=== PATIENT | male | born 1940 | race Hispanic/Latino ===

== ENCOUNTER 2018-09-26 14:49 | Observation (INO) | payer OTHER, MEDICARE ==
[2018-09-26 15:12] LABS: #Eosinphils 0.1 thou/uL (0.0-0.7); #Lymphocytes 1.2 thou/uL (1.20-3.40); #Monocytes 0.7 thou/uL (0.11-0.59); #Neutrophils 5.2 thou/uL (1.40-6.50); %Basophils 0.1 % (0.0-1.0); %Eosinophils 1.5 % (0.0-10.0); %Lymphocytes 16.4 % (21.0-51.0); %Monocytes 9.2 % (0.0-10.0); %Neutrophils 72.8 % (42.0-75.0); Hemoglobin 16.2 g/dL (14.0-18.0); Mean Corpuscular HGB CONC 34.2 g/dL (32.0-36.0); Mean Corpuscular Hemoglobin 31.3 pg (27.0-31.0); Mean Corpuscular Volume 91.5 fL (78.0-98.0); Mean Platelet Volume 8.2 fL (7.4-10.4); Platelet Count 144 thou/uL (130-400); RBC Distribution Width 12.6 % (11.5-14.5); Red Blood Cell (RBC) Count 5.17 mill/uL (4.70-6.10); White Blood Cell (WBC) Count 7.1 thou/uL (4.8-10.8)
[2018-09-26 15:33] LABS: ALT (SGPT) 18 U/L (8-55); AST (SGOT) 24 U/L (5-34); Albumin 4.1 g/dL (3.4-4.8); Alkaline Phosphatase 66 U/L (40-150); Anion Gap 14 mmol/L (10-20); BUN (Urea Nitrogen) 16 mg/dL (8.4-25.7); Bilirubin, Total 0.7 mg/dL (0.2-1.2); CK (CPK) 273 U/L (30-200); Calc. Creatinine Clearance 0 mL/min (70-130); Calcium 9.5 mg/dL (7.8-10.44); Carbon Dioxide 23 mmol/L (23-31); Chloride 102 mmol/L (98-107); Estimated GFR-MDRD 74; Globulin 2.8 g/dL (2.4-3.5); Glucose 199 mg/dL (83-110); Lipase 23 U/L (8-78); Potassium 3.8 mmol/L (3.5-5.1); Protein, Total 6.9 g/dL (5.8-8.1); Sodium 135 mmol/L (136-145)
[2018-09-26 15:41] LABS: CKMB 7.3 ng/mL (0-6.6); Troponin I 0.301 ng/mL (< 0.028)
--- NOTE | 2018-09-26 15:42 | RAD ---
PORTABLE CHEST 1 VIEW: Date: 09/26/18 Time: 1434 hours HISTORY: Dyspnea. FINDINGS: Comparison made with exam dated 11/19/07. Right-sided AICD is present. The heart size is borderline. The lungs are well expanded without focal areas of consolidation, pneumothoraces, julienne pulmonary edema, or pleural effusions. IMPRESSION: No radiographic evidence of acute cardiopulmonary process. POS: [facility]
[2018-09-26] MEDS ORDERED: Enoxaparin Sodium 80 MG/0.8 ML SYRINGE ONE (16:31)
[2018-09-26] MEDS ORDERED: Metoprolol Tartrate 5 MG/5 ML VIAL ONE (16:31)
[2018-09-26] MEDS ORDERED: Nitroglycerin 0.4 MG TAB (25 Tab Bottle) PO PRN (17:46)
[2018-09-26 18:11] VITALS: BMI 27.9
[2018-09-26] MEDS ORDERED: Enoxaparin Sodium 80 MG/0.8 ML SYRINGE SC SCH (18:30)
[2018-09-26 20:01] LABS: Troponin I 3.531 ng/mL (< 0.028)
[2018-09-26] MEDS ORDERED: Simvastatin 20 MG TAB PO SCH (21:00)
[2018-09-26] MEDS: Carvedilol 6.25 MG TAB PO SCH (21:29)
[2018-09-26] MEDS: Sacubitril 24.5 MG/Valsartan 25.5 MG TABLET PO SCH (21:29)
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
[2018-09-26 22:48] LABS: Troponin I 4.942 ng/mL (< 0.028)
--- NOTE | 2018-09-27 07:16 | PRG ---
DATE OF SERVICE: 09/27/2018. SUBJECTIVE: No complaints of chest pain, shortness breath, nausea or vomiting. OBJECTIVE: VITAL SIGNS: Temperature 97.9, pulse 71, respirations 16, pulse ox 97, blood pressure 121/66. HEART: Regular rate and rhythm. LUNGS: Clear. ABDOMEN: Soft. EXTREMITIES: With no edema. LABORATORY DATA: Troponin 3.5, 4.9. ASSESSMENT: 1. Chest pain, resolved. 2. Supraventricular tachycardia with discharge of his defibrillator x5 yesterday. 3. Hypertension. 4. Hyperlipidemia. 5. Diabetes. PLAN: 1. Discussed with Dr. Gamez. Dr. Luna to see today. 2. Consult Dr. Farias or Dr. Martinez with EP. 3. Continue Coreg at 6.25 p.o. b.i.d.
[2018-09-27] MEDS ORDERED: metFORMIN 500 MG TAB PO SCH (08:00)
[2018-09-27] MEDS: Carvedilol 6.25 MG TAB PO SCH (08:52)
[2018-09-27] MEDS ORDERED: Aspirin 325 MG TAB PO SCH (09:00)
[2018-09-27] MEDS: Sacubitril 24.5 MG/Valsartan 25.5 MG TABLET PO SCH (09:12)
[2018-09-27 11:40] VITALS: BP 105/59; TEMP 97.5
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
--- NOTE | 2018-09-27 12:54 | DIS ---
DATE OF ADMISSION: 09/26/2018 DATE OF DISCHARGE: 09/27/2018 DISCHARGE DIAGNOSES: 1. Atrial tachycardia/supraventricular tachycardia. 2. Automatic implantable cardioverter/defibrillator shocks. 3. Dilated cardiomyopathy with ejection fraction 20-25%. 4. Hypertension. 5. Hyperlipidemia. 6. Diabetes. DISCHARGE MEDICATIONS: Metoprolol 25 p.o. at bedtime, glipizide 5 p.o. q.a.m., metformin 500 p.o. b. i.d., Entresto 24-26 1 p.o. b.i.d., simvastatin 20 daily. BRIEF HISTORY: This is a 77-year-old male with history as above with a dilated cardio myopathy who presented with chest pain. He was doing well over the past few years. He has been foll owed by Dr. Luna. Recently his Coreg was stopped approximately 2 months ago. He has done well unt il yesterday. He had 5 episodes of being shock from his ICD. He then presented to the emergency karol where he was started on Lopressor. He has done well since then. HOSPITAL COURSE: The patient is feeling well. No recurrent shocks. He was started on Coreg 6.25 b. i.d. However, Dr. Luna was consulted. The patient will be discharged with metoprolol 25 p.o. at b edtime and be titrated upward. He will follow up in the office in one week. OF course, if he has an y recurrent shocks he is to return to the ER.
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
== END 2018-09-27 13:24 | disposition home or self-care (01) ==
LOC: ERS 14:49 → 2SW 16:23
PROVIDERS: ADMIT Family Medicine; ATTEND Family Medicine
DX: I47.1 Supraventricular tachycardia (principal); I42.0 Dilated cardiomyopathy; I10 Essential (primary) hypertension; E78.5 Hyperlipidemia, unspecified; E11.9 Type 2 diabetes mellitus without complications; Z79.82 Long term (current) use of aspirin; Z79.84 Long term (current) use of oral hypoglycemic drugs; Z79.899 Other long term (current) drug therapy; Z95.810 Presence of automatic (implantable) cardiac defibrillator
CPT/HCPCS: 36415; 36416; 71045; 80053; 82553; 83690; 83880; 84484; 85025; 85379; 93005; 96361; 96372; 96374; G0378; J1650

== ENCOUNTER 2018-10-02 16:28 | Observation (INO) | payer OTHER, MEDICARE ==
[~2018-10-02 16:28] MED LIST: ISOVUE-370 76%-LOCM 1 ML ONE
[2018-10-02 16:56] LABS: #Basophils 0.1 thou/uL (0.0-0.2); #Eosinphils 0.1 thou/uL (0.0-0.7); #Lymphocytes 1.5 thou/uL (1.20-3.40); #Monocytes 0.6 thou/uL (0.11-0.59); #Neutrophils 5.1 thou/uL (1.40-6.50); %Basophils 0.7 % (0.0-1.0); %Eosinophils 1.3 % (0.0-10.0); %Lymphocytes 20.7 % (21.0-51.0); %Monocytes 7.6 % (0.0-10.0); %Neutrophils 69.7 % (42.0-75.0); Hemoglobin 16.6 g/dL (14.0-18.0); Mean Corpuscular HGB CONC 34.5 g/dL (32.0-36.0); Mean Corpuscular Hemoglobin 31.5 pg (27.0-31.0); Mean Corpuscular Volume 91.3 fL (78.0-98.0); Mean Platelet Volume 8.1 fL (7.4-10.4); Platelet Count 149 thou/uL (130-400); RBC Distribution Width 12.6 % (11.5-14.5); Red Blood Cell (RBC) Count 5.25 mill/uL (4.70-6.10); White Blood Cell (WBC) Count 7.3 thou/uL (4.8-10.8)
[2018-10-02] MEDS ORDERED: Lorazepam 2 MG/ML VIAL ONE (17:12)
[2018-10-02 17:20] LABS: CKMB 2.7 ng/mL (0-6.6); Troponin I 0.025 ng/mL (< 0.028)
--- NOTE | 2018-10-02 18:56 | RAD ---
ONE VIEW CHEST: 10/02/18 HISTORY: Dyspnea. COMPARISON: 09/26/18. FINDINGS: Stable right sided defibrillator. Atherosclerosis of the aorta. Heart is enlarged. The pulmonary vess els and hilum are normal. Costophrenic angles are clear. No consolidation or mass. No pneumothorax or osseous abnormalities. IMPRESSION: No acute cardiopulmonary process. POS: [facility]
[2018-10-02 20:05] LABS: Troponin I 0.041 ng/mL (< 0.028)
[2018-10-02] MEDS ORDERED: Enoxaparin Sodium 80 MG/0.8 ML SYRINGE ONE (21:17)
[2018-10-02 22:45] VITALS: BMI 27.6
--- NOTE | 2018-10-02 23:04 | CT ---
CT ANGIOGRAM OF THE CHEST: 10/02/18 HISTORY: Shortness of breath. COMPARISON: None. TECHNIQUE: CT angiogram of the chest is performed in the axial plane. Three dimensional reformatted image are fontanez bmitted for interpretation. FINDINGS: Trachea and central bronchi are patent. Dependent atelectatic changes. No masses or consolidation. No pleural effusion or pneumothorax. No mediastinal mass, lymphadenopathy or hematoma. Atherosclerosis of a nonaneurysmal aorta. Coronary artery calcifications are identified. Heart size is within normal limits. No pericardial effusion. Gallbladder is surgically absent. Incompletely evaluated hypodensity emanating from the upper pole of the right kidney. Atrophy of the head and proximal body of the pancreas. Adequate contrast opacification of the pulmonary arterial system to the level of segmental arteries. No filling defect to suggest a thromboembolism. Though the contrast was injected via the left upper e xtremity, contrast does not opacify the left brachiocephalic vein or superior vena cava. Rather, ther e appear to be collateral vessels with contrast entering the azygos vein and subsequently entering th e right atrium. 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 There is evidence of a right sided defibrillator. IMPRESSION: 1. No evidence of pulmonary artery embolism to the level of the segmental arteries. 2. Additional findings as above. POS: [facility]
[2018-10-02 23:22] LABS: Troponin I 0.034 ng/mL (< 0.028)
[2018-10-02] MEDS ORDERED: Morphine 4 MG/ML VIAL SLOW IVP PRN (23:54)
[2018-10-02] MEDS ORDERED: Nitroglycerin 4.9 GM Bottle SL PRN (23:54)
[2018-10-02] MEDS ORDERED: Calcium Carbonate 500 MG ChewTAB PO PRN (23:55)
[2018-10-02] MEDS ORDERED: Labetalol HCl 100 MG/20 ML VIAL SLOW IVP PRN (23:55)
[2018-10-02] MEDS ORDERED: Dextrose 5% in Water 1,000 ML IV PRN (23:55)
[2018-10-02] MEDS ORDERED: Promethazine 25 MG TAB PO PRN (23:55)
[2018-10-02] MEDS ORDERED: Dextrose 50% Abboject 50 ML SYRINGE SLOW IVP PRN (23:55)
[2018-10-02] MEDS ORDERED: Acetaminophen 500 MG TAB PO PRN (23:55)
[2018-10-02] MEDS ORDERED: Zolpidem Tartrate 5 MG TAB PO PRN (23:55)
[2018-10-02] MEDS ORDERED: Ondansetron ODT 4 MG TAB PO PRN (23:55)
[2018-10-02] MEDS ORDERED: HumaLOG 300 UNITS/3 ML VIAL SC PRN (23:55)
[2018-10-03 08:06] LABS: ALT (SGPT) 20 U/L (8-55); AST (SGOT) 20 U/L (5-34); Albumin 3.9 g/dL (3.4-4.8); Alkaline Phosphatase 63 U/L (40-150); Anion Gap 13 mmol/L (10-20); BUN (Urea Nitrogen) 12 mg/dL (8.4-25.7); Bilirubin, Total 0.7 mg/dL (0.2-1.2); Calc. Creatinine Clearance 81 mL/min (70-130); Calcium 9.2 mg/dL (7.8-10.44); Carbon Dioxide 24 mmol/L (23-31); Chloride 103 mmol/L (98-107); Estimated GFR-MDRD 87; Globulin 2.7 g/dL (2.4-3.5); Glucose 143 mg/dL (83-110); Potassium 3.8 mmol/L (3.5-5.1); Protein, Total 6.6 g/dL (5.8-8.1); Sodium 136 mmol/L (136-145)
[2018-10-03] MEDS ORDERED: ADENOSINE 60 MG/20 ML VIAL ONE (08:39)
[2018-10-03] MEDS: Clopidogrel Bisulfate 75 MG TAB PO SCH (10:00)
[2018-10-03] MEDS: Enoxaparin Sodium 40 MG/0.4 ML SYRINGE SC SCH (10:00)
[2018-10-03] MEDS: Aspirin 325 mg Enteric Coated Tablet PO SCH (10:00)
[2018-10-03] MEDS: Sacubitril 24.5 MG/Valsartan 25.5 MG TABLET PO SCH ×2 (10:01→21:30)
--- NOTE | 2018-10-03 15:11 | NM ---
CARDIAC SPECT WITH EF AND WALL MOTION: HISTORY: A 77-year-old male with a history of chest pain, congestive heart failure, ICD, supraventricular tach ycardia. Adenosine sestamibi study is performed. The patient was injected with 32 mCi Technetium 99m sestamibi intravenously for stress images and 10. 2 mCi Technetium 99m sestamibi intravenously for resting images. No scan evidence for ischemia. TID 1.01. LHR 0.40. EDV markedly elevated at 218 mL. Ejection fraction markedly low at 18%. MYOCARDIAL PERFUSION WALL MOTION: Severe generalized [id number] with some septal dyskinesis. IMPRESSION: No scan evidence for overt ischemia. Markedly abnormal end-diastolic volume at 218 mL. Ejection fra ction markedly low at 18%. Severe hypokinesis with some dyskinesis in the region of the septum. POS: [facility]
[2018-10-03 16:32] LABS: Troponin I 0.017 ng/mL (< 0.028)
--- NOTE | 2018-10-03 19:09 | HP ---
DATE OF ADMISSION: 10/02/2018 DATE OF SERVICE: 10/03/2018 CHIEF COMPLAINT: Shortness of breath. HISTORY OF PRESENT ILLNESS: The patient has well documented longstanding history of nonischemic cardiomyopathy. Patient of Dr. Bush, has transitioned to Dr. Luna approximately 2 weeks ago. The patient had multiple firings of his implantable AICD with elements of tachycardia on interrogation. The patient's beta blockers were modified following the patient with some element of hypotension being placed on Entresto on an outpatient basis. Following review of last two echocardiograms, the patient has recovered approximately 10% ejection fraction to 20%-25% here in the last check being approximately 2-3 months ago per Cardiology's notations, however, cannot be directly reviewed secondary to not being in [email or web address] or [facility]. Speaking with patient, he has not undergone stress test in better part of 8-10 years. The patient feels anxiety about general medical condition and medication changes. He is not sure that he is on the correct medications for his condition and shortness of breath with activity since being on metoprolol. The patient notes elevated heart rate every time they checked his blood pressure and then he repeatedly checks it again and again with subsequent elevations of heart rate and blood pressure. At rest, the patient denies any chest pain or shortness of breath. Reports his anxiety this morning is controlled. Reports blood sugars are controlled. PAST MEDICAL HISTORY: Includes diabetes type 2, hyperlipidemia, hypertension, cardiomyopathy with diastolic and systolic heart failure, last ejection fraction 20%-25%. The patient with history of colon cancer, status post chemotherapy and resection in 2005, reported good scope with Dr. Cuenca, EGD in 2011. The patient with AICD placement, date undetermined by outpatient records. OUTPATIENT MEDICATIONS: Baby aspirin 81 mg, simvastatin 20 mg, metformin 500 mg t.i.d., Entresto 24-26 mg twice daily. ALLERGIES: No known drug allergies. SOCIAL HISTORY: Patient reports being former smoker, quit in 1997. Lives with spouse. Strong family history of diabetes. PHYSICAL EXAMINATION: VITAL SIGNS: Temperature of 98.2, pulse 79, respiratory rate of 16, oxygen saturation 97% on room air, blood pressure 137/77. Hematology: White blood cell count of 7.3, hemoglobin of 16.6, platelet count of 149. D-dimer 0.45. Troponins x3 0.02, 0.04, 0.03. Blood glucose 132-143 range last 6 hours. Sodium 136, potassium of 3.8, CO2 of 24, BUN of 12, creatinine of 0.86, albumin 3.9. BNP of 275. Chest x-ray without acute cardiopulmonary events. CTA chest and thorax, no dissection or pulmonary embolism. GENERAL: The patient is alert and oriented, in no acute distress. HEENT: Head is normocephalic, atraumatic. Extraocular movements are intact. Sclerae are clear. Oral mucosa is moist. NECK: Supple. HEART: Regular rate and rhythm at time of exam. No murmurs auscultated. LUNGS: Clear to auscultation bilaterally. No rubs or wheezes. ABDOMEN: Protuberant, soft, nontender. EXTREMITIES: Lower extremities without cyanosis or edema. The patient is alert and oriented x3, somewhat anxious. Affect is flat. Appropriate with question; however, somewhat cyclic thought process with his anxiety. ASSESSMENT AND PLAN: 1. Elevated troponin, shortness of breath, anxiety, systolic and diastolic congestive heart failure without current exacerbation. 2. Nonischemic cardiomyopathy. 3. Diabetes type 2. This is likely continuation of current circumstances from prior admission 2 weeks ago with unknown possibility of further atrial tachycardia events as the patient's pacemaker has not been interrogated. No reports on rhythm strips overnight of any tachycardia. Troponins are indeterminate; however, significantly decreased since 2 weeks ago with the patient's AICD firing with likely demand ischemia subsequently to defibrillator shocks. The patient's shortness of breath may very well be secondary to anxiety secondary to general medical condition and changes to medications have improved his ejection fraction over the last 18 months on review of outpatient records; however, the patient has not had a stress test, which will continue to bring patient to the hospital for observation status, unless this was performed with default to cardiology's recommendations if they had rather taken for catheterization or interrogate the pacemaker first. The patient has been made n.p.o. after midnight and beta itzel has been held this morning. Per last hospital admission without a consistent beta blockade, the patient's heart rhythm is deteriorated and tachycardia would be keen to restart this as soon as possible, sliding scale insulin checks regarding patient's diabetes. We will follow up on any recommendations from Cardiology. If stress test is normal, would seek to restart patient's home medications fully and transition the patient home until stress test can be confirmed normal. We will start with low dose Lovenox and Plavix at this point in time. Continue other home medications other than beta itzel, which includes angiotensin receptor itzel, statin. MTDD
[2018-10-03] MEDS ORDERED: Atorvastatin Calcium 10 MG TAB PO SCH (21:00)
--- NOTE | 2018-10-04 02:01 | CON ---
DATE OF CONSULTATION: 10/03/2018 CARDIOLOGY CONSULT NOTE DATE OF ADMISSION: 10/02/2018 INDICATION FOR CONSULTATION: This is a 77-year-old gentleman with a history of known cardiomyopathy with severe decrease in left ventricular systolic function, who has undergone AICD implant. He appar ently was shocked several times last week. He is a patient of Dr. Bush recently, but then was s een by Dr. Luna more recently a couple of weeks ago. Last week he had multiple shocks from his AIC D due to SVT apparently, the device was a modified, but yesterday he became anxious and felt like he was going to be shocked again. He felt the heart rate was getting fast again and he presented to the emergency room. He did not have any more recent shocks since last week. He did not have a shock on this admission. He has been short of breath and his most recent echocardiogram shows ejection fract ion less than 20%. He also had a stress test, which showed no evidence of ischemia, but ejection fra ction was also estimated about 18% with left ventricular dilatation and global hypokinesis. We were asked to see him due to his history of cardiomyopathy and severe decrease in left ventricular systoli c function. He has had episodes of nonsustained ventricular tachycardia even on this admission. He continued to have runs of nonsustained V-tach, but has had no shocks from the defibrillator as of yet and most likely is programmed not to shock until he has more beats of what he has been having as william g he has been about 9 beats. At this time, he denies any chest pain. He does have some shortness of breath, but is minimal and otherwise appears to be comfortable. For his past medical history, social history, family history, allergies, review of systems, medicatio n, please refer to the notes dictated by my nurse practitioner, Zaina Ambrocio. We have discussed the p atient, I would agree with her assessment. PHYSICAL EXAMINATION: GENERAL: Reveals an elderly gentleman who is in no acute distress at this time. He does get some sh ort of breath during the examination and if he is talking too much, but otherwise he appears to be ve ry comfortable. VITAL SIGNS: Stable. Blood pressure is 145/68. He is afebrile. Heart rate is in the 70s and shows a sinus rhythm with no acute ST segment changes. He does have decreased R-wave progression in the a nterior leads. His respiratory rate is about 16, O2 saturations are 96%. HEENT: Shows head to be normocephalic, atraumatic. Carotid pulses are present without any significa nt bruits. CHEST: Clear to auscultation. I did not hear any rales, rhonchi or wheezing. CARDIOVASCULAR: At this time reveals a regular rate and rhythm. I did not hear any significant murm urs, heaves, thrills, bruits or rubs. ABDOMEN: Soft and nontender. Positive bowel sounds are present. EXTREMITIES: Show no clubbing, cyanosis or edema. NEUROLOGIC: The patient appears to be fully intact. IMPRESSION: 1. History of dilated cardiomyopathy. He is status post AICD implant with recent shocks. He did del real ve a slight elevation of cardiac enzymes which may be due to the previous shocks he had for the last week with a continued leak due to his cardiomyopathy. At this time, he appears to be otherwise stabl e and I did not believe this is indicative of any new events. His troponin I's have trended downward since his admission actually was 0.025 increased up to 0.041 and is now back down to 0.017. His MBs were negative. His BNP was 275. 2. History of hypertension. This is under reasonable control at that time. At this time, we will c ontadolfo to monitor his medications and will address appropriately. 3. History of nonsustained ventricular tachycardia. The ICD appears to be functioning normally. We did not receive a shock, and the rate for the duration of ventricular tachycardia prior to being deondre cked. 4. Diabetes. This will be dealt with by the primary care service. Otherwise, overall, patient appe ars to be relatively stable from a cardiac standpoint despite having severe decrease in left ventricu lar systolic function.
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
[2018-10-04 05:10] LABS: Troponin I 0.018 ng/mL (< 0.028)
--- NOTE | 2018-10-04 08:45 | PRG ---
DATE OF SERVICE: 10/04/2018 SUBJECTIVE: No recurrent chest pain, shortness of breath, nausea, or vomiting. No reported shocks s tierney the last admission. OBJECTIVE: VITAL SIGNS: Temperature 97.3, pulse 81, blood pressure 125/75, respirations 18, pulse ox 97%. HEART: Regular rate and rhythm. LUNGS: Clear. ABDOMEN: Soft. EXTREMITIES: With no edema. LABORATORY DATA: Blood sugar 156 and 149. Troponin 0.017 and 0.018. Cardiac stress test negative w ith ejection fraction of 18%. ASSESSMENT: 1. Dilated cardiomyopathy with an ejection fraction of 18%. 2. Status post automatic implantable cardioverter defibrillator placement with recent shocks. 3. Hypertension. 4. Diabetes. 5. History of nonsustained ventricular tachycardia. PLAN: 1. Await Dr. Luna's evaluation. 2. Restart metoprolol 25 mg p.o. at bedtime. 3. Possible discharge today.
[2018-10-04] MEDS: Enoxaparin Sodium 40 MG/0.4 ML SYRINGE SC SCH (09:38)
[2018-10-04] MEDS: Sacubitril 24.5 MG/Valsartan 25.5 MG TABLET PO SCH (09:38)
[2018-10-04] MEDS: Clopidogrel Bisulfate 75 MG TAB PO SCH (09:39)
[2018-10-04] MEDS: Aspirin 325 mg Enteric Coated Tablet PO SCH (09:39)
[2018-10-04 12:20] VITALS: BP 133/63; TEMP 97.9
--- NOTE | 2018-10-04 13:43 | PDOC.CTH ---
Cardiology Progress Note - Subjective He is doing much better. He denies any chest pain, tightness, pressure, SOB. - Objective Vital Signs Temp Pulse Resp BP BP Pulse Ox 10/04/18 11:49 97.9 F 66 16 133/63 97 10/04/18 07:42 97.5 F L 95 16 149/77 H 97 10/04/18 04:00 97.3 F L 81 18 127/75 97 Weight 169 lb 3.2 oz 10/03/18 10/04/18 10/05/18 06:59 06:59 06:59 Intake Total 200 1520 Output Total 150 Balance 50 1520 - Physical Examination General/Neuro: alert & oriented x3, NAD Neck: no JVD present Lungs: CTA, unlabored respirations Heart: RRR Abdomen: NT/ND Extremities: other: (no edema) - Telemetry Telemetry Rhythm: NSR - Labs Result Diagrams: 10/02/18 16:45 10/03/18 06:39 Troponin/CKMB CK-MB (CK-2) 2.7 ng/mL (0-6.6) 10/02/18 16:45 Troponin I 0.018 ng/mL (< 0.028) 10/04/18 04:04 - Assessment/Plan 1. SOB, resolved after stopping Metoprolol. 2. Non-ischemic CM EF at 20% 3. VT, s/p AICD shock last admission, none since last seen. Only non sustained VT 9 beats longest. No ATP. PLAN: - Will switch his metoprolol to coreg as he used to be on this medication in the past and he felt good with it and it suppressed his VT well. He does not like the way Metoprolol makes him feel. Will start Coreg at 3.125 mg BID and will make sure he keeps an eye on his BP which is why we stopped the coreg in the past. If BP is lower with coreg he will cut back on Entresto to once a day which may be all he can tolerate but at this point the priority is to not get another AICD discharge. - He may be discharged home today.
--- NOTE | 2018-10-04 15:14 | DIS ---
DATE OF DISCHARGE: 10/04/2018 REASON FOR ADMISSION: Shortness of breath. DISCHARGE DIAGNOSIS: Shortness of breath. SUMMARY: Ms. Arias is a pleasant 77-year-old white gentleman who has a history of nonischemic car diomyopathy, he has an AICD in place with an EF of 20%. He had an admission about a week or two ago with SVT that got shocked by the device not detecting correctly. This was modified, and he had noted some episodes of tachycardia. He thought he was going to get shocked. He started getting short of breath and anxious, so he decided to come in. He did not receive any therapy not even . His lo ngest run of any rhythm was actually a 9-beat run of nonsustained ventricular tachycardia. He did no t receive any therapies for that. He was actually asymptomatic during this time because do not correlate with the time he felt his tachycardia. He is doing well. He does not like the way the me toprolol feels. He states it makes him feel short of breath. He was on Coreg before for a long yasmeen od of time and did very well. We actually took him off of this because we tried to put him on Entres to and it dropped his blood pressure. Currently, he is off of the metoprolol for the last day and he already feels much better. He would like to try the metoprolol again. Currently, we will start him back on the Coreg 3.125 b.i.d. If he notices that his blood pressure drop and he gets orthostatic, he will first cut down the Entresto to just once a day which is not ideal, but this may be as much as he can tolerate. DISCHARGE MEDICATIONS: Remain the same except for discontinuing metoprolol and starting Coreg 3.125 mg twice a day. FOLLOWUP APPOINTMENTS: 1. With myself next month as previously scheduled. 2. With Dr. Avitia as previously scheduled as well towards the end of this week.
[2018-10-04] MEDS ORDERED: Carvedilol 3.125 MG TAB PO SCH (17:00)
== END 2018-10-04 15:40 | disposition home or self-care (01) ==
LOC: ERS 16:28 → 2SW 20:45
PROVIDERS: ADMIT Family Medicine; ATTEND Family Medicine
DX: R06.02 Shortness of breath (principal); I42.8 Other cardiomyopathies; E11.9 Type 2 diabetes mellitus without complications; E78.5 Hyperlipidemia, unspecified; I11.0 Hypertensive heart disease with heart failure; I50.40 Unspecified combined systolic (congestive) and diastolic (congestive) heart failure; F41.9 Anxiety disorder, unspecified; Z85.038 Personal history of other malignant neoplasm of large intestine; Z87.891 Personal history of nicotine dependence; Z79.82 Long term (current) use of aspirin; Z79.84 Long term (current) use of oral hypoglycemic drugs; Z79.899 Other long term (current) drug therapy; Z95.810 Presence of automatic (implantable) cardiac defibrillator; Z98.890 Other specified postprocedural states
CPT/HCPCS: 36415; 36416; 71045; 71275; 78452; 80053; 82553; 83880; 84484; 85025; 85379; 93005; 93017; 96372; 96374; A9500; G0378; J0153; J1650; J2060

== ENCOUNTER 2020-06-06 23:44 | Inpatient (IN) | payer OTHER, MEDICARE ==
[2020-06-07 00:40] LABS: #Eosinphils 0.1 thou/uL (0.0-0.7); #Lymphocytes 1.1 thou/uL (1.20-3.40); #Monocytes 0.5 thou/uL (0.11-0.59); #Neutrophils 4.9 thou/uL (1.40-6.50); %Basophils 0.4 % (0.0-1.0); %Eosinophils 1.2 % (0.0-10.0); %Lymphocytes 16.9 % (21.0-51.0); %Monocytes 7.9 % (0.0-10.0); %Neutrophils 73.5 % (42.0-75.0); Hemoglobin 15.3 g/dL (14.0-18.0); Mean Corpuscular HGB CONC 33.5 g/dL (32.0-36.0); Mean Corpuscular Hemoglobin 31.3 pg (27.0-31.0); Mean Corpuscular Volume 93.2 fL (78.0-98.0); Mean Platelet Volume 8.4 fL (7.4-10.4); Platelet Count 151 thou/uL (130-400); Red Blood Cell (RBC) Count 4.88 mill/uL (4.70-6.10); White Blood Cell (WBC) Count 6.7 thou/uL (4.8-10.8)
[2020-06-07 01:01] LABS: ALT (SGPT) 17 U/L (8-55); AST (SGOT) 22 U/L (5-34); Alkaline Phosphatase 67 U/L (40-110); Anion Gap 14 mmol/L (10-20); BUN (Urea Nitrogen) 15 mg/dL (8.4-25.7); Calc. Creatinine Clearance 0 mL/min (70-130); Calcium 9.3 mg/dL (7.8-10.44); Carbon Dioxide 23 mmol/L (23-31); Chloride 101 mmol/L (98-107); Estimated GFR-MDRD 86; Globulin 2.6 g/dL (2.4-3.5); Glucose 170 mg/dL (83-110); Protein, Total 6.6 g/dL (5.8-8.1); Sodium 134 mmol/L (136-145)
[2020-06-07 01:22] LABS: CKMB 2.9 ng/mL (0-6.6)
[2020-06-07 03:10] LABS: SARS-CoV-2 NAA Rapid Test Not Detected (NotDetected)
[2020-06-07] MEDS ORDERED: Dextrose 5% in Water 1,000 ML IV PRN (03:39)
[2020-06-07] MEDS ORDERED: Dextrose 50% Abboject 50 ML SYRINGE SLOW IVP PRN (03:39)
[2020-06-07] MEDS ORDERED: HumaLOG 300 UNITS/3 ML VIAL SC PRN ×2 (03:39)
[2020-06-07 04:39] LABS: Troponin I 0.041 ng/mL (< 0.028)
[2020-06-07 05:41] VITALS: BMI 25.9
[2020-06-07 06:54] LABS: Troponin I 0.046 ng/mL (< 0.028)
--- NOTE | 2020-06-07 07:34 | CT ---
PRELIMINARY REPORT/[facility]/EMERGENCY AFTER HOURS PROCEDURE: EXAM: CTA Chest with Intravenous Contrast CLINICAL HISTORY: SOB x 3 weeks. Patient states that he woke up from sleeping because he couldn't kareem athe. Patient states that his heart was racing during this incident. TECHNIQUE: Axial CTA images of the chest with intravenous contrast. Three-dimensional MIP/volume rend ered reformations were performed. CONTRAST: With; ISOVUE 370, 85ML COMPARISON: CT\SR - CTA ANGIO CHEST W WO CON - 10/02/2018 06:13 PM INTERNAL COMMUNICATIONS MANAGER FINDINGS: PULMONARY ARTERIES There is no intraluminal filling defect suspicious for PE. AORTA No thoracic aortic aneurysm or dissection. LUNGS The lungs are clear. No pulmonary mass. No focal airspace consolidation. PLEURAL SPACES There are small bilateral pleural effusion. HEART AND MEDIASTINUM No cardiomegaly. No significant pericardial effusion. LYMPH NODES No lymphadenopathy. BONES There is a healed fracture deformity of the right third and fourth ribs. There is a healed fracture deformity of the left fifth, sixth, seventh rib. CHEST WALL AND UPPER ABDOMEN Images through the upper abdomen are unremarkable. The chest wall is unremarkable. IMPRESSION: There are small bilateral pleural effusion. No CT evidence of pulmonary embolism. ELECTRONICALLY SIGNED BY: Moo Marinelli MD Jun 07, 2020 1:53:32 AM CDT This report is intended for review by the ordering physician only, in accordance of law. If you recei ve this report in error, please call [facility] at [phone]. FINAL REPORT EMERGENCY AFTER HOURS CTA CHEST WITH CONTRAST: FINDINGS/IMPRESSION: I agree with the findings and impression given in the preliminary report per [facility] physici an. 1. No evidence of pulmonary thromboembolism. 2. Bilateral pleural effusions. POS: MARYA
--- NOTE | 2020-06-07 07:41 | RAD ---
RADIOGRAPH CHEST 1 VIEW: DATE: 06/07/2020 TIME: 12:23 AM HISTORY: 79-year-old male with dyspnea COMPARISON: 10/02/2018 FINDINGS: New bilateral pleural effusions. No large consolidation identified. Right subclavian AICD remains. Di ffuse pulmonary venous congestion, new. No pneumothorax. IMPRESSION: Congestive heart failure with bilateral pleural effusions.
[2020-06-07] MEDS ORDERED: Acetaminophen 325 MG TAB PO PRN (08:36)
[2020-06-07] MEDS ORDERED: Furosemide 20 MG/2 ML VIAL SLOW IVP SCH (08:45)
--- NOTE | 2020-06-07 08:45 | PDOC.HHP ---
Hospitalist HPI - History of Present Illness Shortness of breath History of Present Illness: This patient is a 79-year-old male who presented via the emergency department. As patient has a history of a nonischemic cardiomyopathy with an ejection fraction of 20% or less. The patient had a stress test in September 2018 which revealed an EF of 18% with significant wall motion abnormalities. He was seen by Dr. Luna earlier this year and told that his ejection fraction might even be a bit lower. He has had some intolerances to medications in the past due to hypotension or side effects. He reports that chronically he experiences some heaviness in the left lower chest area he states that since his appointment with Dr. Root earlier this year in which time he found out his ejection fraction was a little lower he states he has been feeling "funny". The patient reports he does have diuretics that he is to use as needed for edema but he never uses them he does sleep elevated chronically. He states if he tries to sleep flat that he feels very anxious and feels like his heart is racing. Patient presented to the emergency department today stating that over the last 2 weeks he has felt like his heart has not been beating properly. Feels like his heart is going fast. He has dyspnea on exertion. ED Course: The emergency department the patient had an initial interrogation of his AICD without any significant findings. Hospitalist ROS - Review of Systems Constitutional: denies: fever, chills Respiratory: reports: shortness of breath. denies: cough Cardiovascular: reports: chest pain (Chronic heaviness in the left lower chest) , palpitations, orthopnea (Chronic. Describes feeling anxious or his heart racing if he tries to lie flat.). denies: edema Gastrointestinal: denies: nausea, vomiting, abdominal pain, diarrhea, constipation Genitourinary: denies: dysuria All other systems reviewed; all pertinent +/- noted in HPI/Subj - Medication Medications: Metformin 500 mg p.o. 3 times daily Simvastatin 20 mg p.o. daily Coreg 3.125 p.o. twice daily Aspirin 325 mg p.o. daily Hospitalist History - Past Medical History Source: patient Cardiac: reports: CHF, HTN, Hyperlipidemia, Other (Nonischemic cardiomyopathy with EF less than 20%) Endocrine: reports: Diabetes - Past Surgical History Past Surgical History: reports: Other (AICD placement) - Family History Family History: reports: diabetes mellitus (Mother and father) - Social History Smoking Status: Former smoker (Quit around 1985) Alcohol: reports: Heavy (Quit about 10 years ago) Drugs: reports: none Living Situation: With Family Other Social History: Patient is full code. His or daughter Svitlana would be his surrogate decision maker should that be necessary. - Exam General Appearance: NAD, awake alert ENT: normocephalic atraumatic, no oropharyngeal lesions, moist mucosa Neck: supple, no JVD Heart: RRR, no murmur, no gallops, no rubs Heart - other findings: Ectopy, tachycardia Respiratory: no wheezes, no ronchi Respiratory - other findings: Mild basilar rales, left > right. Gastrointestinal: soft, non-tender, non-distended, normal bowel sounds, no palpable masses, no hepatomegaly, no splenomegaly, no bruit Extremities: no cyanosis, no clubbing, no edema Skin: normal turgor, no lesions, no rashes Neurological: cranial nerve grossly intact, normal sensation to touch, no weakness, no focal deficits Musculoskeletal: normal tone, normal strength, no muscle wasting Psychiatric: normal affect, normal behavior, A&O x 3 Hospitalist Results - Labs Result Diagrams: 06/07/20 00:22 06/07/20 00:22 Lab results: WBC 6.7 thou/uL (4.8-10.8) 06/07/20 00:22 Hgb 15.3 g/dL (14.0-18.0) 06/07/20 00:22 Hct 45.5 % (42.0-52.0) 06/07/20 00:22 MCV 93.2 fL (78.0-98.0) 06/07/20 00:22 Plt Count 151 thou/uL (130-400) 06/07/20 00:22 Neutrophils % 73.5 % (42.0-75.0) 06/07/20 00:22 Sodium 134 mmol/L (136-145) L 06/07/20 00:22 Potassium 4.0 mmol/L (3.5-5.1) 06/07/20 00:22 Chloride 101 mmol/L (98-107) 06/07/20 00:22 Carbon Dioxide 23 mmol/L (23-31) 06/07/20 00:22 BUN 15 mg/dL (8.4-25.7) 06/07/20 00:22 Creatinine 0.86 mg/dL (0.7-1.3) 06/07/20 00:22 Glucose 170 mg/dL (83-110) H 06/07/20 00:22 Calcium 9.3 mg/dL (7.8-10.44) 06/07/20 00:22 Total Bilirubin 1.0 mg/dL (0.2-1.2) 06/07/20 00:22 AST 22 U/L (5-34) 06/07/20 00:22 ALT 17 U/L (8-55) 06/07/20 00:22 Alkaline Phosphatase 67 U/L (40-110) 06/07/20 00:22 CK-MB (CK-2) 2.9 ng/mL (0-6.6) 06/07/20 00:22 Troponin I 0.046 ng/mL (< 0.028) H 06/07/20 06:18 B-Natriuretic Peptide 1252.0 pg/mL (0-100) H 06/07/20 00:21 Serum Total Protein 6.6 g/dL (5.8-8.1) 06/07/20 00:22 Albumin 4.0 g/dL (3.4-4.8) 06/07/20 00:22 - EKG Interpretation EKG: Sinus tachycardia with occasional PVCs and fusion complexes with a rate of 113. Possible left atrial enlargement. Left axis deviation. - Radiology Interpretation CT scan - chest Status: image reviewed by me, report reviewed by me Additional Comment: CTA chest reveals small bilateral pleural effusions Hospitalist H&P A/P - Problem (1) Dyspnea on exertion Code(s): R06.00 - DYSPNEA, UNSPECIFIED Status: Acute (2) Acute on chronic systolic (congestive) heart failure Code(s): I50.23 - ACUTE ON CHRONIC SYSTOLIC (CONGESTIVE) HEART FAILURE Status : Acute (3) Nonischemic cardiomyopathy Code(s): I42.8 - OTHER CARDIOMYOPATHIES Status: Acute (4) Bilateral pleural effusion Code(s): J90 - PLEURAL EFFUSION, NOT ELSEWHERE CLASSIFIED Status: Acute (5) Diabetes mellitus Code(s): E11.9 - TYPE 2 DIABETES MELLITUS WITHOUT COMPLICATIONS Status: Acute (6) Hypertension Code(s): I10 - ESSENTIAL (PRIMARY) HYPERTENSION Status: Acute (7) Hyperlipidemia Code(s): E78.5 - HYPERLIPIDEMIA, UNSPECIFIED Status: Acute (8) History of ventricular tachycardia Code(s): Z86.79 - PERSONAL HISTORY OF OTHER DISEASES OF THE CIRCULATORY SYSTEM Status: Acute (9) ICD (implantable cardioverter-defibrillator) in place Code(s): Z95.810 - PRESENCE OF AUTOMATIC (IMPLANTABLE) CARDIAC DEFIBRILLATOR Status: Acute - Plan Plan: Dyspnea on exertion: Likely secondary to decompensated congestive heart failure. Sats are good. Acute on chronic systolic congestive heart failure: Patient has reduced ejection fraction and has an elevated BNP above his baseline readings in the past. He has small bilateral pleural effusions. Likely has some slight decompensation. We will give a small dose of IV Lasix. Cardiology consulted. Nonischemic cardiomyopathy: Chronic. Last documented ejection fraction we have years from September 2018 order was documented at 18%. Will defer to cardiology whether we need to repeat echocardiogram at this time. History of nonsustained ventricular tachycardia: Discussed with the AICD videotape sales representative. Patient does not have any arrhythmias attributable to his current symptomatology. He did have an episode of a brief run of nonsustained V. tach over 2 weeks ago. He does believe there are some adjustments that could be made. He has notified the methods specialist engineer and is going to discuss this in person with the greens or grounds superintendent. Will consult EP as well. Diabetes mellitus: Continue his metformin. Monitor blood glucose. Hypertension: Patient is on Coreg for heart failure and blood pressure control. He is not tolerated high doses of beta-itzel in the past. We will therefore not push that dose and defer that to cardiology. Hyperlipidemia: Continue statin.
[2020-06-07] MEDS: Aspirin 325 mg Enteric Coated Tablet PO SCH (09:19)
[2020-06-07] MEDS: Enoxaparin Sodium 40 MG/0.4 ML SYRINGE SC SCH (09:19)
[2020-06-07] MEDS: Famotidine 20 MG TAB PO SCH ×2 (09:19→20:30)
[2020-06-07] MEDS ORDERED: Iopamidol 370 76% 100 ML VIAL ONE (11:10)
[2020-06-07] MEDS: metFORMIN 500 MG TAB PO SCH ×2 (11:44→16:52)
[2020-06-07] MEDS: Carvedilol 3.125 MG TAB PO SCH (16:52)
--- NOTE | 2020-06-07 17:20 | CON ---
DATE OF CONSULTATION: 06/07/2020 REASON FOR CONSULTATION: Heart failure. PRIMARY HYDROPULPER OPERATOR: Brett Luna MD HISTORY OF PRESENT ILLNESS: Mr. Arias is a pleasant 79-year-old gentleman who comes to the hospital for worsening shortness of breath. He has a history of nonischemic cardiomyopathy. His EF is about 15% to 20%. He comes in for worsening shortness of breath over the last few days. He could not lie flat as he would get short of breath and tachycardic. He normally does not take Lasix because it makes him orthostatic and he has been fairly stable for at least the last 3 to 4 years. More recently, he has been having a lot more admissions for decompensated heart failure. He tells me he has not changed his diet in any way. He has not been eating any more salt than normal or drinking any more fluids than normal. He otherwise denies any palpitations. He has an AICD in place and this was interrogated in the ER, and there has been no tachyarrhythmias to blame for his decompensated state. Mr. Arias has had a lot of low blood pressures as an outpatient, so he could not tolerate any other heart failure medicines. Currently, he is feeling better after diuresis with IV Lasix, but he continues to feel short with it. PAST MEDICAL HISTORY: 1. Nonischemic cardiomyopathy. 2. Presence of an AICD. 3. Type 2 diabetes. 4. Hyperlipidemia. 5. Colon cancer. PAST SURGICAL HISTORY: 1. Colonoscopy in 2006. 2. AICD placed in 2006 and replaced in 2012. 3. Multiple orthopedic surgeries. FAMILY HISTORY: Noncontributory. SOCIAL HISTORY: No alcohol, tobacco, or drugs. Former smoker, quit in 1997. OUTPATIENT MEDICATIONS: 1. Entresto 24/26 p.o. b.i.d. 2. Zocor 20 mg at bedtime. 3. Metformin 500 mg t.i.d. 4. Carvedilol 3.125 b.i.d. ALLERGIES: NO KNOWN DRUG ALLERGIES. REVIEW OF SYSTEMS: A 12-point review of systems was done and was all negative unless stated in the history of present illness. PHYSICAL EXAMINATION: VITAL SIGNS: Temperature 98.0, pulse 116, respiratory rate 25, saturating 96% on 2 L nasal cannula, blood pressure 127/71. GENERAL: Awake, alert, oriented x3, in mild respiratory distress. HEENT: Normocephalic, atraumatic. NECK: Supple. LUNGS: Have crackles at bases with reduced breaths. CARDIOVASCULAR: S1 and S2. No S3 or S4. No murmurs. There is a grade 2/6 systolic murmur at the right upper sternal border. ABDOMEN: Soft. EXTREMITIES: No edema. SKIN: Warm and dry. LABORATORY DATA: Laboratory work was reviewed. CBC was unremarkable. Coags, D-dimer is a little bit high. Chemistry with a low sodium, otherwise unremarkable. Normal BUN and creatinine. Glucose was 170. Troponin was 0.04, 0.04, and 0.04. BNP at 1252, which is higher than it has been in the past. COVID PCR was not detected. ASSESSMENT: 1. Acute on chronic systolic heart failure. 2. Nonischemic cardiomyopathy. 3. Dilated cardiomyopathy with ejection fraction of 15% to 20% in last evaluation. PLAN: 1. Continue IV diuresis. 2. He is in sinus tachycardia right now. If he does not diurese well or his creatinine starts to creep up, we will add dobutamine to his regimen. Right now, I am hesitant to start it as he is in sinus tach in the 120s and I am afraid he is going to go a lot faster if we start the inotrope. 3. I spoke with him about higher level of care as far as doing maybe an LVAD like a HeartMate II or doing a home milrinone drip. He is not interested in any extremely invasive procedures like an LVAD and he would prefer to just do pills and medications and stay away from any drips or any complications. Thank you for letting us to participate in the care of your patient. We will continue to follow. Job ID: [id number]
[2020-06-07] MEDS: Atorvastatin Calcium 10 MG TAB PO SCH (20:30)
[2020-06-08] MEDS: Furosemide 40 MG/4 ML VIAL SLOW IVP SCH ×2 (06:09→14:24)
[2020-06-08] MEDS: Famotidine 20 MG TAB PO SCH ×2 (08:25→22:05)
[2020-06-08] MEDS: Enoxaparin Sodium 40 MG/0.4 ML SYRINGE SC SCH (08:25)
[2020-06-08] MEDS: metFORMIN 500 MG TAB PO SCH ×3 (08:26→17:55)
[2020-06-08] MEDS: Aspirin 325 mg Enteric Coated Tablet PO SCH (08:26)
[2020-06-08] MEDS: Carvedilol 3.125 MG TAB PO SCH ×2 (08:26→17:55)
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
--- NOTE | 2020-06-08 18:46 | PDOC.CPN ---
- Subjective Date: 06/08/20 Time: 18:40 Interval history: He is doing much better. He has diuresed well. - Review of Systems General: denies: fever/chills, weight/appetite/sleep changes, night sweats, fatigue Respiratory: denies: cough, congestion, shortness of breath, exercise intolerance Cardiovascular: denies: chest pain, palpitation, edema, paroxysmal nocturnal dyspnea, orthopnea Gastrointestinal: denies: nausea, vomiting, diarrhea, constipation, abd pain, GI bleeding Musculoskeletal: denies: pain, tenderness, stiffness, swelling, arthritis/ arthralgias Neurological: denies: numbness, syncope, seizure, weakness - Objective Allergies/Adverse Reactions: Allergies Allergy/AdvReac Type Severity Reaction Status Date / Time No Known Allergies Allergy Verified 10/02/18 22:49 Visit Medications: Current Medications Acetaminophen (Tylenol) 650 mg PO Q4H PRN PRN Reason: Headache/Fever/Mild Pain (1-3) Aspirin (Ecotrin) 325 mg PO DAILY [facility] Last Admin: 06/08/20 08:26 Dose: 325 mg Atorvastatin Calcium (Lipitor) 10 mg PO HS [facility] Last Admin: 06/07/20 20:30 Dose: 10 mg Carvedilol (Coreg) 3.125 mg PO BID-WM [facility] Last Admin: 06/08/20 17:55 Dose: 3.125 mg Dextrose/Water (Dextrose 50%) 25 gm SLOW IVP PRN PRN PRN Reason: Hypoglycemia Enoxaparin Sodium (Lovenox) 40 mg SC 0900 [facility] Last Admin: 06/08/20 08:25 Dose: 40 mg Famotidine (Pepcid) 20 mg PO BID [facility] Last Admin: 06/08/20 08:25 Dose: 20 mg Furosemide (Lasix) 40 mg SLOW IVP 0600,1400 [facility] Last Admin: 06/08/20 14:24 Dose: 40 mg Glucagon (Glucagon) 1 mg IM PRN PRN PRN Reason: Hypoglycemia Dextrose/Water (D5w) 1,000 mls @ 0 mls/hr IV .Q0M PRN PRN Reason: Hypoglycemia Insulin Human Lispro (Humalog) 0 units SC .MILD SLIDING SCALE PRN PRN Reason: Mild Correctional Scale Last Admin: 06/07/20 11:45 Dose: 2 unit Insulin Human Lispro (Humalog) 0 units SC .BEDTIME SLIDING SC PRN PRN Reason: Bedtime Correctional Scale Metformin HCl (Glucophage) 500 mg PO TID-WM [facility] Last Admin: 06/08/20 17:55 Dose: 500 mg Sacubitril/Valsartan (Entresto 24 Mg-26 Mg Tablet) 1 tab PO BID [facility] Last Admin: 06/08/20 08:25 Dose: 1 tab Vital Signs & Weight: Vital Signs Temp Pulse Resp BP Pulse Ox 06/08/20 15:31 97.9 F 84 14 103/61 98 06/08/20 11:42 97.7 F 96 18 98/67 95 06/08/20 08:26 95 06/08/20 07:37 97.5 F L 97 12 104/61 95 Weight 161 lb 14.4 oz - Physical Exam General: alert & oriented x3 HEENT: mucus membranes moist Neck: supple neck Cardiac: regular rate and rhythm, tachycardia Lungs: clear to auscultation Neuro: grossly intact Abdomen: active bowel sounds Extremities: no edema Skin: clear Musculoskeletal: no pain - Labs Result Diagrams: 06/07/20 00:22 06/07/20 00:22 Troponin/CKMB CK-MB (CK-2) 2.9 ng/mL (0-6.6) 06/07/20 00:22 Troponin I 0.046 ng/mL (< 0.028) H 06/07/20 06:18 - Telemetry Sinus rhythms and dysrhythmias: sinus tachycardia - Assessment/Plan Assessment/Plan: 1. Acute on chronic systolic heart failure. 2. Atrial dysrrhythmia. 3. Non ischemic CM EF 15-20% 4. AICD in place. 5. ICD RV lead insulation break. PLAN: - Long conversation with him about how to proceed. - Dr. Martinez is planning to transfer to [place] for Complex Afib and possible atrial tach ablation and revision of leads. He is on the fence about this. I answered all his questions. He states he will talk to his family and decide tonight. - Continue IV lasix.
--- NOTE | 2020-06-08 19:46 | PDOC.HOSPP ---
- Subjective Encounter Date: 06/08/20 Subjective: Feeling very well. Says the diuretics worked extremely well for him and he has voided a great deal. - Objective Vital Signs & Weight: Vital Signs (12 hours) Temp Pulse Resp BP Pulse Ox 06/08/20 15:31 97.9 F 84 14 103/61 98 06/08/20 11:42 97.7 F 96 18 98/67 95 06/08/20 08:26 95 Weight Weight 161 lb 14.4 oz Most Recent Monitor Data Heart Rate from ECG 86 NIBP 98/65 NIBP BP-Mean 76 Respiration from ECG 13 SpO2 100 I&O: 06/07/20 06/08/20 06/09/20 06:59 06:59 06:59 Intake Total 720 1560 Output Total 875 Balance -155 1560 Result Diagrams: 06/07/20 00:22 06/07/20 00:22 Additional Labs: Accuchecks 06/08/20 06/08/20 06/08/20 16:08 11:51 06:35 POC Glucose 137 H 99 135 H 06/07/20 06/07/20 20:18 16:56 POC Glucose 97 116 H Hospitalist ROS - Medication Medications: Active Medications Generic Name Dose Route Start Last Admin Trade Name Freq PRN Reason Stop Dose Admin Aspirin 325 mg 06/07/20 09:00 06/08/20 08:26 Ecotrin PO 325 mg DAILY [facility] Administration Atorvastatin Calcium 10 mg 06/07/20 21:00 06/07/20 20:30 Lipitor PO 10 mg HS [facility] Administration Carvedilol 3.125 mg 06/07/20 17:00 06/08/20 17:55 Coreg PO 3.125 mg BID-WM [facility] Administration Enoxaparin Sodium 40 mg 06/07/20 09:00 06/08/20 08:25 Lovenox SC 40 mg 0900 [facility] Administration Famotidine 20 mg 06/07/20 09:00 06/08/20 08:25 Pepcid PO 20 mg BID [facility] Administration Furosemide 40 mg 06/08/20 06:00 06/08/20 14:24 Lasix SLOW IVP 40 mg 0600,1400 [facility] Administration Insulin Human Lispro 0 units 06/07/20 03:39 06/07/20 11:45 Humalog SC 2 unit .MILD SLIDING SCALE PRN Administration Mild Correctional Scale Metformin HCl 500 mg 06/07/20 12:00 06/08/20 17:55 Glucophage PO 500 mg TID-WM [facility] Administration Sacubitril/Valsartan 1 tab 06/07/20 21:00 06/08/20 08:25 Entresto 24 Mg-26 Mg Tablet PO 1 tab BID [facility] Administration - Exam General Appearance: NAD, awake alert Neck: supple, symmetric, no JVD, no thyromegaly, no lymphadenopathy, no carotid bruit Heart: RRR, no murmur, no gallops, no rubs, normal peripheral pulses Respiratory: CTAB, no wheezes, no rales, no ronchi, normal chest expansion, no tachypnea, normal percussion Gastrointestinal: soft, non-tender, non-distended, normal bowel sounds, no palpable masses, no hepatomegaly, no splenomegaly, no bruit Extremities: no cyanosis, no clubbing, no edema Skin: normal turgor Musculoskeletal: normal tone, normal strength, no muscle wasting Psychiatric: normal affect, normal behavior, A&O x 3 Hosp A/P (1) Dyspnea on exertion Code(s): R06.00 - DYSPNEA, UNSPECIFIED Status: Acute (2) Acute on chronic systolic (congestive) heart failure Code(s): I50.23 - ACUTE ON CHRONIC SYSTOLIC (CONGESTIVE) HEART FAILURE Status : Acute (3) Nonischemic cardiomyopathy Code(s): I42.8 - OTHER CARDIOMYOPATHIES Status: Acute (4) Bilateral pleural effusion Code(s): J90 - PLEURAL EFFUSION, NOT ELSEWHERE CLASSIFIED Status: Acute (5) Diabetes mellitus Code(s): E11.9 - TYPE 2 DIABETES MELLITUS WITHOUT COMPLICATIONS Status: Acute (6) Hypertension Code(s): I10 - ESSENTIAL (PRIMARY) HYPERTENSION Status: Acute (7) Hyperlipidemia Code(s): E78.5 - HYPERLIPIDEMIA, UNSPECIFIED Status: Acute (8) History of ventricular tachycardia Code(s): Z86.79 - PERSONAL HISTORY OF OTHER DISEASES OF THE CIRCULATORY SYSTEM Status: Acute (9) ICD (implantable cardioverter-defibrillator) in place Code(s): Z95.810 - PRESENCE OF AUTOMATIC (IMPLANTABLE) CARDIAC DEFIBRILLATOR Status: Acute - Plan Acute on chronic systolic congestive heart failure exacerbation: Patient is diuresing well. Appears to be more stable. Reported he was able to ambulate a bit around the room better than he had been prior to the admission. Cardiology following. Tachycardia: After our visit today discussed with cardiology. This appears to be more of an atrial tachycardia. Given his overall cardiac function this is not helpful. Plan is for ablation with lead revision in [place]. Patient is considering his options. He is not been overly interested in anything too aggressive. Bilateral pleural effusions: Secondary to heart failure. Stable. Continue diuresis as tolerated. Diabetes mellitus: Blood sugars are well controlled. No change. Hypertension: Stable. Hyperlipidemia: Continue statin.
[2020-06-08] MEDS: Atorvastatin Calcium 10 MG TAB PO SCH (22:05)
[2020-06-09] MEDS: Furosemide 40 MG/4 ML VIAL SLOW IVP SCH ×2 (05:25→14:40)
[2020-06-09] MEDS: Aspirin 325 mg Enteric Coated Tablet PO SCH (08:50)
[2020-06-09] MEDS: metFORMIN 500 MG TAB PO SCH ×3 (08:50→17:02)
[2020-06-09] MEDS: Famotidine 20 MG TAB PO SCH ×2 (08:51→20:50)
[2020-06-09] MEDS: Carvedilol 3.125 MG TAB PO SCH ×2 (08:51→17:02)
[2020-06-09] MEDS: Enoxaparin Sodium 40 MG/0.4 ML SYRINGE SC SCH (08:51)
--- NOTE | 2020-06-09 12:52 | PDOC.HOSPP ---
- Subjective Encounter Date: 06/09/20 Subjective: Feeling well. More energy and less dyspnea on exertion. - Objective Vital Signs & Weight: Vital Signs (12 hours) Temp Pulse Resp BP Pulse Ox 06/09/20 11:23 97.6 F 80 14 99/60 98 06/09/20 08:35 97.6 F 94 14 94/67 98 06/09/20 06:19 98 06/09/20 05:20 97.6 F 61 18 90/54 L 98 Weight Weight 158 lb 3 oz Most Recent Monitor Data Heart Rate from ECG 86 NIBP 98/65 NIBP BP-Mean 76 Respiration from ECG 13 SpO2 100 I&O: 06/08/20 06/09/20 06/10/20 06:59 06:59 06:59 Intake Total 720 2060 Output Total 875 Balance -155 0 Result Diagrams: 06/07/20 00:22 06/07/20 00:22 Additional Labs: Accuchecks 06/09/20 06/09/20 06/08/20 11:43 06:48 21:00 POC Glucose 118 H 137 H 131 H 06/08/20 16:08 POC Glucose 137 H Hospitalist ROS - Medication Medications: Active Medications Generic Name Dose Route Start Last Admin Trade Name Freq PRN Reason Stop Dose Admin Aspirin 325 mg 06/07/20 09:00 06/09/20 08:50 Ecotrin PO 325 mg DAILY [facility] Administration Atorvastatin Calcium 10 mg 06/07/20 21:00 06/08/20 22:05 Lipitor PO 10 mg HS [facility] Administration Carvedilol 3.125 mg 06/07/20 17:00 06/09/20 08:51 Coreg PO Not Given BID-WM [facility] Enoxaparin Sodium 40 mg 06/07/20 09:00 06/09/20 08:51 Lovenox SC 40 mg 0900 [facility] Administration Famotidine 20 mg 06/07/20 09:00 06/09/20 08:51 Pepcid PO 20 mg BID [facility] Administration Furosemide 40 mg 06/08/20 06:00 06/09/20 05:25 Lasix SLOW IVP 40 mg 0600,1400 [facility] Administration Insulin Human Lispro 0 units 06/07/20 03:39 06/07/20 11:45 Humalog SC 2 unit .MILD SLIDING SCALE PRN Administration Mild Correctional Scale Metformin HCl 500 mg 06/07/20 12:00 08/01/20 11:33 Glucophage PO 500 mg TID-WM [facility] Administration Sacubitril/Valsartan 1 tab 06/07/20 21:00 06/09/20 08:51 Entresto 24 Mg-26 Mg Tablet PO Not Given BID [facility] - Exam General Appearance: NAD, awake alert Heart: RRR, no murmur, no gallops, no rubs, normal peripheral pulses Respiratory: CTAB, no wheezes, no rales, no ronchi, normal chest expansion, no tachypnea, normal percussion Gastrointestinal: soft, non-tender, non-distended, normal bowel sounds, no palpable masses, no hepatomegaly, no splenomegaly, no bruit Psychiatric: normal affect, normal behavior, A&O x 3 Hosp A/P (1) Dyspnea on exertion Code(s): R06.00 - DYSPNEA, UNSPECIFIED Status: Acute (2) Acute on chronic systolic (congestive) heart failure Code(s): I50.23 - ACUTE ON CHRONIC SYSTOLIC (CONGESTIVE) HEART FAILURE Status : Acute (3) Nonischemic cardiomyopathy Code(s): I42.8 - OTHER CARDIOMYOPATHIES Status: Acute (4) Bilateral pleural effusion Code(s): J90 - PLEURAL EFFUSION, NOT ELSEWHERE CLASSIFIED Status: Acute (5) Diabetes mellitus Code(s): E11.9 - TYPE 2 DIABETES MELLITUS WITHOUT COMPLICATIONS Status: Acute (6) Hypertension Code(s): I10 - ESSENTIAL (PRIMARY) HYPERTENSION Status: Acute (7) Hyperlipidemia Code(s): E78.5 - HYPERLIPIDEMIA, UNSPECIFIED Status: Acute (8) History of ventricular tachycardia Code(s): Z86.79 - PERSONAL HISTORY OF OTHER DISEASES OF THE CIRCULATORY SYSTEM Status: Acute (9) ICD (implantable cardioverter-defibrillator) in place Code(s): Z95.810 - PRESENCE OF AUTOMATIC (IMPLANTABLE) CARDIAC DEFIBRILLATOR Status: Acute - Plan Acute on chronic systolic congestive heart failure exacerbation: Patient is diuresing well. Appears to be more stable. Reported he was able to ambulate a bit around the room better than he had been prior to the admission. Cardiology following. Tachycardia: After our visit today discussed with cardiology. This appears to be more of an atrial tachycardia. Given his overall cardiac function this is not helpful. Plan is for ablation with lead revision in [place]. Patient is willing to pursue that. Anticipate transfer to [facility] tomorrow. Bilateral pleural effusions: Secondary to heart failure. Stable. Continue diuresis as tolerated. Diabetes mellitus: Blood sugars are well controlled. No change. Hypertension: Stable. Hyperlipidemia: Continue statin.
--- NOTE | 2020-06-09 16:19 | PDOC.CPN ---
- Subjective Date: 06/09/20 Time: 16:19 Interval history: He feels better overall. Still more SOB than baseline when walking but normal at rest. - Review of Systems General: denies: fever/chills, weight/appetite/sleep changes, night sweats, fatigue Respiratory: reports: exercise intolerance. denies: cough, congestion, shortness of breath Cardiovascular: denies: chest pain, palpitation, edema, paroxysmal nocturnal dyspnea, orthopnea Gastrointestinal: denies: nausea, vomiting, diarrhea, constipation, abd pain, GI bleeding Musculoskeletal: denies: pain, tenderness, stiffness, swelling, arthritis/ arthralgias Neurological: denies: numbness, syncope, seizure, weakness - Objective Allergies/Adverse Reactions: Allergies Allergy/AdvReac Type Severity Reaction Status Date / Time No Known Allergies Allergy Verified 10/02/18 22:49 Visit Medications: Current Medications Acetaminophen (Tylenol) 650 mg PO Q4H PRN PRN Reason: Headache/Fever/Mild Pain (1-3) Aspirin (Ecotrin) 325 mg PO DAILY [facility] Last Admin: 06/09/20 08:50 Dose: 325 mg Atorvastatin Calcium (Lipitor) 10 mg PO HS [facility] Last Admin: 06/08/20 22:05 Dose: 10 mg Carvedilol (Coreg) 3.125 mg PO BID-WM [facility] Last Admin: 06/09/20 08:51 Dose: Not Given Dextrose/Water (Dextrose 50%) 25 gm SLOW IVP PRN PRN PRN Reason: Hypoglycemia Enoxaparin Sodium (Lovenox) 40 mg SC 0900 [facility] Last Admin: 06/09/20 08:51 Dose: 40 mg Famotidine (Pepcid) 20 mg PO BID [facility] Last Admin: 06/09/20 08:51 Dose: 20 mg Furosemide (Lasix) 40 mg SLOW IVP 0600,1400 [facility] Last Admin: 06/09/20 14:40 Dose: 40 mg Glucagon (Glucagon) 1 mg IM PRN PRN PRN Reason: Hypoglycemia Dextrose/Water (D5w) 1,000 mls @ 0 mls/hr IV .Q0M PRN PRN Reason: Hypoglycemia Insulin Human Lispro (Humalog) 0 units SC .MILD SLIDING SCALE PRN PRN Reason: Mild Correctional Scale Last Admin: 06/07/20 11:45 Dose: 2 unit Insulin Human Lispro (Humalog) 0 units SC .BEDTIME SLIDING SC PRN PRN Reason: Bedtime Correctional Scale Metformin HCl (Glucophage) 500 mg PO TID-WM [facility] Last Admin: 06/09/20 11:33 Dose: 500 mg Sacubitril/Valsartan (Entresto 24 Mg-26 Mg Tablet) 1 tab PO BID [facility] Last Admin: 06/09/20 08:51 Dose: Not Given Vital Signs & Weight: Vital Signs Temp Pulse Resp BP Pulse Ox 06/09/20 11:23 97.6 F 80 14 99/60 98 06/09/20 08:35 97.6 F 94 14 94/67 98 06/09/20 06:19 98 06/09/20 05:20 97.6 F 61 18 90/54 L 98 Weight 158 lb 3 oz - Physical Exam General: alert & oriented x3 HEENT: mucus membranes moist Neck: supple neck Cardiac: regular rate and rhythm Lungs: clear to auscultation Neuro: grossly intact Abdomen: active bowel sounds Extremities: no edema Skin: clear Musculoskeletal: no pain - Labs Result Diagrams: 06/07/20 00:22 06/07/20 00:22 Troponin/CKMB CK-MB (CK-2) 2.9 ng/mL (0-6.6) 06/07/20 00:22 Troponin I 0.046 ng/mL (< 0.028) H 06/07/20 06:18 - Telemetry Sinus rhythms and dysrhythmias: sinus rhythm - Assessment/Plan Assessment/Plan: 1. Acute on chronic systolic heart failure. 2. Atrial dysrhythmia. 3. Non ischemic CM EF 15-20% 4. AICD in place. 5. ICD RV lead insulation break. PLAN: - He has decided he will proceed with transfer and plan for atrial ablation and lead revision. - Continue IV lasix. - Planned as a Thursday transfer for thursday procedure at [facility] with Dr. Martinez.
[2020-06-09 17:11] LABS: Anion Gap 16 mmol/L (10-20); BUN (Urea Nitrogen) 17 mg/dL (8.4-25.7); Calc. Creatinine Clearance 65 mL/min (70-130); Calcium 9.2 mg/dL (7.8-10.44); Carbon Dioxide 26 mmol/L (23-31); Chloride 96 mmol/L (98-107); Estimated GFR-MDRD 75; Glucose 107 mg/dL (83-110); Potassium 3.7 mmol/L (3.5-5.1); Sodium 134 mmol/L (136-145)
[2020-06-09] MEDS: Atorvastatin Calcium 10 MG TAB PO SCH (20:50)
--- NOTE | 2020-06-09 21:00 | PDOC.EVN ---
Event Note - Event Note Event Note: Nurse called to let us know that patient refused his Entresto tonight and it was held this AM due to BP concerns.
[2020-06-10 04:27] LABS: Anion Gap 14 mmol/L (10-20); BUN (Urea Nitrogen) 18 mg/dL (8.4-25.7); Calc. Creatinine Clearance 76 mL/min (70-130); Calcium 9.3 mg/dL (7.8-10.44); Carbon Dioxide 25 mmol/L (23-31); Chloride 95 mmol/L (98-107); Estimated GFR-MDRD Greater than 90; Glucose 111 mg/dL (83-110); Potassium 4.1 mmol/L (3.5-5.1); Sodium 130 mmol/L (136-145)
[2020-06-10] MEDS: Furosemide 40 MG/4 ML VIAL SLOW IVP SCH (06:19)
[2020-06-10 08:08] VITALS: BP 101/57; TEMP 98.5
[2020-06-10] MEDS: Famotidine 20 MG TAB PO SCH (09:19)
[2020-06-10] MEDS: metFORMIN 500 MG TAB PO SCH (09:19)
[2020-06-10] MEDS: Carvedilol 3.125 MG TAB PO SCH (09:19)
[2020-06-10] MEDS: Aspirin 325 mg Enteric Coated Tablet PO SCH (09:20)
[2020-06-10] MEDS: Enoxaparin Sodium 40 MG/0.4 ML SYRINGE SC SCH (09:20)
--- NOTE | 2020-06-10 16:31 | DIS ---
DATE OF ADMISSION: 06/07/2020 DATE OF DISCHARGE: 06/10/2020 DISCHARGE DIAGNOSES: 1. [id number] systolic congestive heart failure. 2. Dyspnea on exertion. 3. Nonischemic cardiomyopathy. 4. Bilateral pleural effusions. 5. Diabetes mellitus. 6. Hypertension. 7. Hyperlipidemia. 8. History of ventricular tachycardia. 9. Implanted defibrillator. 10. Implantable cardioverter-defibrillator right ventricular lead insulation break. 11. Atrial tachycardia. 12. Mild hyponatremia. HISTORY OF PRESENT ILLNESS: This patient is a 79-year-old male with a history of nonischemic cardiomyopathy who presented to the emergency department reporting increasing dyspnea on exertion. His initial chest x-ray showed evidence of congestive heart failure with bilateral pleural effusions. CTA of the chest showed no evidence of PE, but bilateral pleural effusions. Troponin was 0.045 fairly consistent with his prior baselines. HOSPITAL COURSE: The patient was admitted to the hospital. He was diuresed and actually responded quite nicely to that. He subjectively felt significantly better. He did, however, have some persistent tachycardia. He had a repeat echocardiogram revealing an EF of 15% to 20% with grade 2 diastolic dysfunction, severe global hypokinesis, [id number] MR, and moderate-sized pleural effusion. The patient had interrogation of his device, which revealed he was having some atrial tachycardia. There was apparently some insulation defect of the right ventricular lead wire given the need for ablation and lead wire replacement. Electrophysiology felt the patient would be better served at [facility] in [place]. Therefore, plans were made for the transfer. The plan is to perform that on 06/11/2020. Therefore, he is transferred on 06/10/2020 to be available for that procedure. PHYSICAL EXAMINATION: VITAL SIGNS: At the time of discharge, temperature is 98.5, pulse 99, respirations 13, O2 saturation 95% on room air, BP is 101/57. GENERAL: He was awake and alert. HEART: Regular without murmurs. LUNGS: Clear bilaterally with slight diminished breath sounds at the bases, but no wheezes, rales, or rhonchi. ABDOMEN: Soft, nontender, and nondistended. EXTREMITIES: Had no edema present. DISPOSITION: The patient is transferred to [facility] in [place]. ACTIVITY: As tolerated. DIET: He is on a heart healthy diet. MEDICATIONS: Include: 1. Aspirin 325 daily. 2. Metformin 500 mg t.i.d. 3. Simvastatin 20 mg b.i.d. 4. Carvedilol 3.125 mg b.i.d. 5. Entresto 24-26 mg one p.o. b.i.d. FOLLOWUP: He is to have followup scheduled after his ablation procedure in [place] and can follow up with Dr. Luna. Total time spent in discharge activities was greater than 30 minutes. Job ID: [id number]
== END 2020-06-10 11:48 | disposition short-term general hospital (02) | DRG 292 ==
LOC: ERS 23:44 → IMCU/EMU 06-07 04:33 → 2NO 06-07 20:31
PROVIDERS: ADMIT Internal Medicine; ATTEND Internal Medicine
PROC: 4B02XTZ Measurement of Cardiac Defibrillator, External Approach (ICD-10-PCS; principal; 2020-06-07)
DX: I11.0 Hypertensive heart disease with heart failure (principal); E87.1 Hypo-osmolality and hyponatremia; I48.19 Other persistent atrial fibrillation; I48.4 Atypical atrial flutter; T82.110A Breakdown (mechanical) of cardiac electrode, initial encounter; Z20.828 Contact with and (suspected) exposure to other viral communicable diseases; I50.33 Acute on chronic diastolic (congestive) heart failure; I42.8 Other cardiomyopathies; I42.0 Dilated cardiomyopathy; E11.9 Type 2 diabetes mellitus without complications; E78.5 Hyperlipidemia, unspecified; Y83.1 Surgical operation with implant of artificial internal device as the cause of abnormal reaction of the patient, or of later complication, without mention of misadventure at the time of the procedure; I34.0 Nonrheumatic mitral (valve) insufficiency; Z87.891 Personal history of nicotine dependence; Z95.810 Presence of automatic (implantable) cardiac defibrillator; Z85.038 Personal history of other malignant neoplasm of large intestine; Z79.899 Other long term (current) drug therapy; Z79.84 Long term (current) use of oral hypoglycemic drugs
CPT/HCPCS: 36415; 36416; 71045; 71275; 80048; 80053; 82553; 83880; 84484; 85025; 85379; 93005; 93306; 97139; J1650; J1940; Q9967; U0002

== ENCOUNTER 2021-01-03 19:08 | Inpatient (IN) | payer MEDICARE, OTHER ==
[~2021-01-03 19:08] MED LIST changes: -ISOVUE-370 76%-LOCM 1 ML ONE; +Iopamidol-370 76% 500 ML 1 ML ONE
[2021-01-03 19:36] LABS: #Eosinphils 0.2 thou/uL (0.0-0.7); #Lymphocytes 1.6 thou/uL (1.20-3.40); #Monocytes 0.8 thou/uL (0.11-0.59); %Basophils 0.5 % (0.0-1.0); %Eosinophils 2.6 % (0.0-10.0); %Lymphocytes 24.5 % (21.0-51.0); %Neutrophils 60.5 % (42.0-75.0); Hemoglobin 13.4 g/dL (14.0-18.0); Mean Corpuscular HGB CONC 33.7 g/dL (32.0-36.0); Mean Corpuscular Hemoglobin 31.8 pg (27.0-31.0); Mean Corpuscular Volume 94.2 fL (78.0-98.0); Mean Platelet Volume 8.4 fL (7.4-10.4); Platelet Count 139 thou/uL (130-400); RBC Distribution Width 13.8 % (11.5-14.5); Red Blood Cell (RBC) Count 4.23 mill/uL (4.70-6.10); White Blood Cell (WBC) Count 6.6 thou/uL (4.8-10.8)
--- NOTE | 2021-01-03 19:48 | RAD ---
Chest AP view INDICATION: Shortness of breath with CHF COMPARISON: June 07, 2020 FINDINGS: Lungs: The lungs are clear Cardiac silhouette: Mild cardiomegaly is stable. Multi lead pacemaker overlying the right chest wall is stable. Pulmonary vasculature: Normal Pleural spaces: No pleural effusion or pneumothorax is demonstrated. Upper abdomen: No abnormality seen. Osseous structures: No acute osseous abnormality. Additional findings: None. IMPRESSION: No acute cardiopulmonary abnormality.
[2021-01-03 19:57] LABS: ALT (SGPT) 8 U/L (8-55); AST (SGOT) 16 U/L (5-34); Albumin 4.1 g/dL (3.4-4.8); Alkaline Phosphatase 59 U/L (40-110); Anion Gap 16 mmol/L (10-20); BUN (Urea Nitrogen) 15 mg/dL (8.4-25.7); Bilirubin, Total 0.8 mg/dL (0.2-1.2); Calc. Creatinine Clearance 0 mL/min (70-130); Calcium 9.1 mg/dL (7.8-10.44); Carbon Dioxide 24 mmol/L (23-31); Chloride 99 mmol/L (98-107); Globulin 2.8 g/dL (2.4-3.5); Glucose 118 mg/dL (83-110); Potassium 3.5 mmol/L (3.5-5.1); Protein, Total 6.9 g/dL (5.8-8.1); Sodium 135 mmol/L (136-145)
--- NOTE | 2021-01-03 20:04 | ULT ---
DOPPLER VENOUS ULTRASOUND RIGHT UPPER EXTREMITY INDICATION: Right upper extremity swelling TECHNIQUE: Grayscale, color Doppler spectral Doppler images were obtained of the right internal jugul ar vein, right subclavian vein, right axillary vein, right brachial vein, right basilic vein, right cephalic vein, right ulnar vein and right radial vein. FINDINGS: There is normal compression, flow and augmentation seen within the venous structures of the right upper extremity. IMPRESSION: No evidence of venous thrombosis within the right upper extremity.
--- NOTE | 2021-01-03 20:54 | CT ---
CTA OF THE CHEST WITH CONTRAST: 01/03/21 COMPARISON: 06/07/20. HISTORY: Left arm swelling and numbness. Difficulty breathing for three days. TECHNIQUE: Multiple contiguous axial images were obtained in a CTA of the chest with contrast per pulmonary embo lism protocol. 3D oblique MIP reformats and direct coronal reformats were performed. FINDINGS: The pulmonary arteries are well opacified without filling defects to suggest pulmonary emboli. Bivent ricular cardiomegaly is seen. There is a small pericardial effusion. No hilar or mediastinal lymphade nopathy are seen. Dense calcifications are seen in the coronary arteries. Calcifications also seen i n the aorta. There is a small right pleural effusion. No left pleural effusion. No suspicious infiltrates or cordell s. No pneumothorax. The patient had a right upper extremity injection. There is extensive collaterals along the right [place] st wall. There appears to be abrupt termination of the injection in the region of the subclavian vein and there may be thrombosis of the right subclavian vein. This is just distal to the area where the cardiac leads come into the subclavian vein. The visualized subdiaphragmatic structures are unremarka ble. The patient is status post cholecystectomy. IMPRESSION: 1. No evidence of pulmonary thromboembolism. 2. Small right pleural effusion. 3. 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 POS: EAA
[2021-01-03] MEDS ORDERED: Furosemide 40 MG/4 ML VIAL ONE (21:19)
[2021-01-03] MEDS ORDERED: Enoxaparin Sodium 80 MG/0.8 ML SYRINGE ONE (21:19)
[2021-01-03 23:35] VITALS: BMI 25.6
[2021-01-04] MEDS ORDERED: HumaLOG 300 UNITS/3 ML VIAL SC PRN (04:28)
[2021-01-04] MEDS ORDERED: Dextrose 50% Abboject 50 ML SYRINGE SLOW IVP PRN (04:28)
[2021-01-04] MEDS ORDERED: Dextrose 5% in Water 1,000 ML IV PRN (04:28)
[2021-01-04] MEDS ORDERED: Labetalol HCl 100 MG/20 ML VIAL SLOW IVP PRN (04:29)
[2021-01-04] MEDS ORDERED: cloNIDine 0.1 MG TAB PO PRN (04:29)
[2021-01-04] MEDS ORDERED: HYDROcodone/Acetaminophen 5/325 mg Tablet PO PRN (04:29)
[2021-01-04] MEDS ORDERED: Promethazine HCl 12.5 MG in Sodium Chloride 0.9% 50 ML IVPB PRN (04:29)
[2021-01-04] MEDS ORDERED: Guaifenesin DM 100-10/5 ML UDCUP PO PRN (04:29)
[2021-01-04] MEDS ORDERED: hydrALAZINE 20 MG/ML VIAL SLOW IVP PRN (04:29)
[2021-01-04] MEDS ORDERED: Ondansetron PF 4 MG/2 ML Vial IVP PRN (04:29)
[2021-01-04] MEDS ORDERED: Electrolyte Replacement Protocol 1 EACH FS PRN (04:30)
--- NOTE | 2021-01-04 04:34 | PDOC.HHP ---
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 Symptoms began 3 days ago. He reports compliance with medications including lasix. Patient denies chest pain. In ED, patient tachycardic. RUE w/ nonpitting edema. BNP elevated. tni negative. US of R upper extremity negative for DVT, CTA chest performed and no PE found, but there was a clot in the R subclavian near pacemaker leads. patient given lovenox and admitted for further workup and care. Allergies/Adverse Reactions: Allergy/AdvReac Type Severity Reaction Status Date / Time No Known Allergies Allergy Verified 10/02/18 22:49 Home Medications: Medication Instructions Recorded Confirmed Type Simvastatin [Zocor] 20 mg PO BID 09/26/18 01/03/21 History metFORMIN [Glucophage] 500 mg PO TID 09/26/18 01/03/21 History Sacubitril/Valsartan [Entresto 24 1 tab PO BID 06/07/20 01/03/21 History mg-26 mg Tablet] Carvedilol [Coreg] 6.25 mg PO BID 01/03/21 01/03/21 History Furosemide [Lasix] 40 mg PO DAILY 01/03/21 01/03/21 History Past History: - Past Medical History Source: patient Cardiac: reports: CHF, HTN, Hyperlipidemia, Other (Nonischemic cardiomyopathy with EF less than 20%) Endocrine: reports: Diabetes - Past Surgical History Past Surgical History: reports: Other (AICD placement) - Family History Family History: reports: diabetes mellitus (Mother and father) - Social History Smoking Status: Former smoker (Quit around 1985) Alcohol: reports: Heavy (Quit about 10 years ago) Drugs: reports: none Living Situation: With Family Other Social History: Hospitalist HPI ROS Constitutional: denies: fever, chills, sweats, weakness, malaise, other Eyes: denies: pain, vision change, conjunctivae inflammation, eyelid i nflammation, redness, other ENT: denies: ear pain, ear discharge, nose pain, nose discharge, nose congestion, mouth pain, mouth swelling, throat pain, throat swelling, other Respiratory: reports: shortness of breath. denies: cough, dry, hemoptysis, SOB with excertion, pleuritic pain, sputum, wheezing, other Cardiovascular: reports: edema. denies: chest pain, palpitations, orthopnea, paroxysmal noc. dyspnea, light headedness, other Gastrointestinal: denies: nausea, vomiting, abdominal pain, diarrhea, constipation, melena, hematochezia, other Genitourinary: denies: dysuria, frequency, incontinence, hematuria, retention, other Musculoskeletal: denies: neck pain, shoulder pain, arm pain, back pain, hand pain, leg pain, foot pain, other Skin: denies: rash, lesions, jacqueline, bruising, other Neurological: denies: weakness, numbness, incoordination, change in speech, confusion, seizures, other All other systems reviewed; all pertinent +/- noted in HPI/Subj Hospitalist Exam Vitals: Vital Signs (12 hours) Temp Pulse Resp BP Pulse Ox 01/03/21 23:30 97.5 F L 79 14 109/52 L 95 01/03/21 22:30 97 01/03/21 22:16 97.6 F 88 16 108/55 L 97 Weight Weight 158 lb 14.4 oz General Appearance: NAD, awake alert Eye: PERRL, anicteric sclera ENT: normocephalic atraumatic, no oropharyngeal lesions, moist mucosa Neck: supple, symmetric, no JVD, no thyromegaly, no lymphadenopathy, no carotid bruit Heart: RRR, no murmur, no gallops, no rubs, normal peripheral pulses Respiratory: CTAB, no wheezes, no rales, no ronchi, normal chest expansion, no tachypnea, normal percussion Gastrointestinal: soft, non-tender, non-distended, normal bowel sounds, no palpable masses, no hepatomegaly, no splenomegaly, no bruit Extremities: no cyanosis, no clubbing, no edema Extremities - other findings: RUE nonpitting edema 1-2+ Skin: normal turgor, no lesions, no rashes Neurological: cranial nerve grossly intact, normal sensation to touch, no weakness, no focal deficits, no new deficit Musculoskeletal: normal tone, normal strength, no muscle wasting Psychiatric: normal affect, normal behavior, A&O x 3 Hospitalist Results Result Diagrams: 01/03/21 19:25 01/03/21 19:25 Lab results: Laboratory Last Values WBC 6.6 thou/uL (4.8-10.8) 01/03/21 19: RBC 4.23 mill/uL (4.70-6.10) L 01/03/21 19:25 Hgb 13.4 g/dL (14.0-18.0) L 01/03/21 19:25 Hct 39.8 % (42.0-52.0) L 01/03/21: MCV 94.2 fL (78.0-98.0) 01/03/21: MCH 31.8 pg (27.0-31.0) H 01/03/21: MCHC 33.7 g/dL (32.0-36.0) 01/03/21: RDW 13.8 % (11.5-14.5) 01/03/21: Plt Count 139 thou/uL (130-400) 01/03/21: MPV 8.4 fL (7.4-10.4) 01/03/21 19:25 Neutrophils % 60.5 % (42.0-75.0) 01/03/21 19: Lymphocytes % 24.5 % (21.0-51.0) 01/03/21 19: Monocytes % 12.0 % (0.0-10.0) H 01/03/21 19:25 Eosinophils % 2.6 % (0.0-10.0) 01/03/21: Basophils % 0.5 % (0.0-1.0) 01/03/21: Neutrophils # 4.0 thou/uL (1.40-6.50) 01/03/21: Lymphocytes # 1.6 thou/uL (1.20-3.40) 01/03/21: Monocytes # 0.8 thou/uL (0.11-0.59) H 01/03/21 19: Eosinophils # 0.2 thou/uL (0.0-0.7) 01/03/21: Basophils # 0.0 thou/uL (0.0-0.2) 01/03/21 19:25 Sodium 135 mmol/L (136-145) L 01/03/21 19:25 Potassium 3.5 mmol/L (3.5-5.1) 01/03/21 19:25 Chloride 99 mmol/L (98-107) 01/03/21 19:25 Carbon Dioxide 24 mmol/L (23-31) 01/03/21 19:25 Anion Gap 16 mmol/L (10-20) 01/03/21 19:25 BUN 15 mg/dL (8.4-25.7) 01/03/21 19:25 Creatinine 0.94 mg/dL (0.7-1.3) 01/03/21 19:25 Estimated GFR (MDRD) 78 01/03/21 19:25 Glucose 118 mg/dL (83-110) H 01/03/21 19:25 Calcium 9.1 mg/dL (7.8-10.44) 01/03/21 19:25 Total Bilirubin 0.8 mg/dL (0.2-1.2) 01/03/21 19:25 AST 16 U/L (5-34) 01/03/21 19:25 ALT 8 U/L (8-55) 01/03/21 19:25 Alkaline Phosphatase 59 U/L (40-110) 01/03/21 19:25 Troponin I 0.020 ng/mL (< 0.028) 01/03/21 19:26 B-Natriuretic Peptide 797.5 pg/mL (0-100) H 01/03/21 19:25 Serum Total Protein 6.9 g/dL (5.8-8.1) 01/03/21 19:25 Albumin 4.1 g/dL (3.4-4.8) 01/03/21 19:25 Globulin 2.8 g/dL (2.4-3.5) 01/03/21 19:25 Albumin/Globulin Ratio 1.5 g/dL (1.2-2.2) 01/03/21 19:25 Additional comment: US Venous Doppler Rt Unilat Observe DT: Jigna Jan 03, 2021 19:34 VENUR DOPPLER VENOUS ULTRASOUND RIGHT UPPER EXTREMITY INDICATION: Right upper extremity swelling TECHNIQUE: Grayscale, color Doppler spectral Doppler images were obtained of the right internal jugul ar vein, right subclavian vein, right axillary vein, right brachial vein, right basilic vein, right cephalic vein, right ulnar vein and right radial vein. FINDINGS: There is normal compression, flow and augmentation seen within the venous structures of the right upper extremity. IMPRESSION: No evidence of venous thrombosis within the right upper extremity. XR Chest 1 View Portable Observe DT: Jigna Jan 03, 2021 19:32 CXRP Chest AP view INDICATION: Shortness of breath with CHF COMPARISON: June 07, 2020 FINDINGS: Lungs: The lungs are clear Cardiac silhouette: Mild cardiomegaly is stable. Multi lead pacemaker overlying the right chest wall is stable. Pulmonary vasculature: Normal Pleural spaces: No pleural effusion or pneumothorax is demonstrated. Upper abdomen: No abnormality seen. Osseous structures: No acute osseous abnormality. Additional findings: None. IMPRESSION: No acute cardiopulmonary abnormality. CTA Angio Chest W WO Con Observe DT: ThuJan 03, 2021 CTATHX CTA OF THE CHEST WITH CONTRAST: 01/03/21 COMPARISON: 06/07/20. HISTORY: Left arm swelling and numbness. Difficulty breathing for three days. TECHNIQUE: Multiple contiguous axial images were obtained in a CTA of the chest with contrast per pulmonary embo lism protocol. 3D oblique MIP reformats and direct coronal reformats were performed. FINDINGS: The pulmonary arteries are well opacified without filling defects to suggest pulmonary emboli. Bivent ricular cardiomegaly is seen. There is a small pericardial effusion. No hilar or mediastinal lymphade nopathy are seen. Dense calcifications are seen in the coronary arteries. Calcifications also seen i n the aorta. There is a small right pleural effusion. No left pleural effusion. No suspicious infiltrates or cordell s. No pneumothorax. The patient had a right upper extremity injection. There is extensive collaterals along the right [place] st wall. There appears to be abrupt termination of the injection in the region of the subclavian vein and there may be thrombosis of the right subclavian vein. This is just distal to the area where the cardiac leads come into the subclavian vein. The visualized subdiaphragmatic structures are unremarka ble. The patient is status post cholecystectomy. IMPRESSION: 1. No evidence of pulmonary thromboembolism. 2. Small right pleural effusion. 3. 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 POS: EAA labs, imaging reports, ed documents, vitals, medications reviewed Hospitalist H&P A/P Plan: Patient is a 79 year old male with PMH nonischemic cardiomyopathy w/ EF 15-20% who presents to ED for arm swelling and shortness of breath. 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 He is not tolerated high doses of beta-itzel in the past. We will therefore not push that dose and defer that to cardiology. # Hyperlipidemia - Continue statin.
[2021-01-04 05:15] LABS: SARS-CoV-2 PCR by NAA Not Detected (NotDetected)
[2021-01-04] MEDS ORDERED: Potassium Chloride 20 MEQ TAB PO SCH (07:00)
--- NOTE | 2021-01-04 08:52 | PDOC.HOSPP ---
- Subjective Encounter Date: 01/04/21 Encounter Time: 11:00 Subjective: Patient with some swelling in his right upper extremity. No other complaints at this time. No shortness of breath or chest pain. He is hungry but was waiting to see if Dr. Farias wanted to do something today. - Objective Vital Signs & Weight: Vital Signs (12 hours) Temp Pulse Resp BP Pulse Ox 01/04/21 03:40 97.3 F L 74 12 111/57 L 94 L 01/03/21 23:30 97.5 F L 79 14 109/52 L 95 01/03/21 22:30 97 01/03/21 22:16 97.6 F 88 16 108/55 L 97 Weight Weight 156 lb 11.2 oz I&O: 01/03/21 01/04/21 01/05/21 06:59 06:59 06:59 Intake Total 240 Output Total 1600 Balance -1360 Result Diagrams: 01/03/21 19:25 01/03/21 19:25 Additional Labs: Accuchecks 01/04/21 06:06 POC Glucose 106 H Hospitalist ROS - Review of Systems Constitutional: denies: fever, chills Respiratory: denies: cough, shortness of breath Cardiovascular: denies: chest pain, palpitations Gastrointestinal: denies: nausea, vomiting, abdominal pain Hospitalist Exam Vitals: Vital Signs (12 hours) Temp Pulse Resp BP Pulse Ox 01/04/21 03:40 97.3 F L 74 12 111/57 L 94 L 01/03/21 23:30 97.5 F L 79 14 109/52 L 95 01/03/21 22:30 97 01/03/21 22:16 97.6 F 88 16 108/55 L 97 Weight Weight 156 lb 11.2 oz General Appearance: NAD, awake alert ENT: moist mucosa Heart: RRR, no murmur, no gallops, no rubs Respiratory: CTAB, no wheezes, no rales, no ronchi Gastrointestinal: soft, non-tender, non-distended, normal bowel sounds Extremities - other findings: Right upper extremity with mild nonpitting edema Psychiatric: normal affect, normal behavior, A&O x 3 Hosp A/P - Plan Patient is a 79 year old male with PMH nonischemic cardiomyopathy w/ EF 15-20% who presents to ED for arm swelling and shortness of breath. # R subclavian thrombus - history of R sided pacemaker - admit to telemetry - consult cardiology for assistance with thrombus near pacemaker leads - continue theraperutic lovenox, consult pharmacy for dosing # acute on chronic systolic and diastolic congestive heart failure - nonischemic cardiomyopathy - Patient has reduced ejection fraction 10-15% by last echo here in 2020 - resume home lasix dose - consult cardiology # Diabetes mellitus - hold PO meds, SSI # HTN - Patient is on Coreg for heart failure and blood pressure control. He is not tolerated high doses of beta-itzel in the past. We will therefore not push that dose and defer that to cardiology. # Hyperlipidemia - Continue statin. GI proph: Protonix daily
[2021-01-04] MEDS: Simvastatin 20 MG TAB PO SCH ×2 (08:56→21:26)
[2021-01-04] MEDS ORDERED: FLU VACC QS2020-21(65YR UP)/PF 240 MCG/0.7 ML SYRINGE IM ONE (09:00)
[2021-01-04] MEDS ORDERED: Enoxaparin Sodium 80 MG/0.8 ML SYRINGE SC SCH (09:00)
[2021-01-04] MEDS: Carvedilol 6.25 MG TAB PO SCH ×2 (09:09→23:34)
[2021-01-04] MEDS: Furosemide 40 MG TAB PO SCH (09:09)
--- NOTE | 2021-01-04 14:33 | CON ---
DATE OF CONSULTATION: 01/04/2021 ADDITIONAL REFERRING PHYSICIAN: Curtis Gonzalez MD REASON FOR CONSULTATION: I am visiting Mr. Arias at our [facility] as an electrophysiology delivery consultant. His problems are: 1. Right upper extremity swelling. a. CT angio suggesting of right subclavian venous thrombosis distal to the ICD insertion sites. 2. Chronic systolic congestive heart failure with nonischemic cardiomyopathy. a. 2D echo from 06/08/2020 shows LVEF of 15% to 20%, severe global hypokinesis, dilated left ventricle, [id number] MR, mild TR. 3. Paroxysmal atrial fibrillation. a. Status post pulmonary venous isolation procedure in 06/2020. 4. There is a Bi-V ICD implant with a lead revision on 09/05/[address] 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 5. History of colon cancer in the past. 6. History of type 2 diabetes. 7. History of hypertension. ALLERGIES: NONE NOTED. MEDICATIONS: At home, include: 1. Zocor. 2. Glucophage. 3. Entresto. 4. Coreg. 5. Lasix. SUBJECTIVE: Mr. Arias is here due to slight dyspnea and also right upper extremity swelling. He was evaluated in the ER with right upper extremity Doppler ultrasound, which did not reveal distal thrombosis, but a CT angio was significant for possible right subclavian area thrombosis. He has no obvious provoking factor for this. His last device procedure was back in June last year. He does have a slight fluid overload and he has noted to be an elevated BNP, although as this not severe, he is able to lie flat now, he does not pass out. No stroke-like symptoms noted. No recent ICD discharges as per the patient. Denies chest pains to suggest angina. No fever, chills, or cough. No burning urination or abdominal issues. REVIEW OF SYSTEMS: Rest of 12-point review of system otherwise unremarkable. PAST MEDICAL HISTORY: As above, he has been following in our office. SOCIAL HISTORY: The patient denies smoking, EtOH, or drug abuse. He used to smoke and quit in 1985. He used to the drink heavy, quit about 10 years ago. Denies drug use. FAMILY HISTORY: Not contributory. OBJECTIVE DATA: VITAL SIGNS: Blood pressure 115/55, heart rate 78, respirations 12, temperature 97.4 degrees Fahrenheit. GENERAL: This is an alert and oriented man, in no apparent distress. NECK: Supple. Jugular veins not distended. CHEST: Coarse without crackles. HEART: Sounds are regular to rate and rhythm. No murmur or gallop. ABDOMEN: Benign. Bowel sounds positive. EXTREMITIES: Lower extremities without edema, clubbing, or cyanosis. Pulses are adequate. NEUROLOGIC: The patient is nonfocal. MUSCULOSKELETAL: Without joint swelling or deformity. SKIN: Without rash. DATABASE: The EKG is reviewed, revealing sinus rhythm, ventricular pacing. Telemetry strips also reveal sinus rhythm. LABORATORY DATA: White cell count 6.6, hemoglobin 13.4, and platelet count is 139. Sodium 135, potassium 3.5, BUN is 15, and creatinine 0.94. ASSESSMENT AND PLAN: Mr. Arias is a very pleasant 80-year-old man with history of congestive heart failure and nonischemic cardiomyopathy. He has a history of paroxysmal atrial fibrillation, but had underwent a pulmonary venous isolation procedure in June. Since then, no significant recurrences were seen and the atrial fibrillation subsided enough to be able to come off anticoagulants. He also underwent a lead revision in 06/2020 and currently he has a [employer] biventricular ICD. On last interrogation, there was no issues on this device. Current right upper extremity swelling is possibly due to some degree of flow limitation, possibly thrombosis through the right subclavian vein. There is no distal deep vein thrombosis seen. The relatively risk of pulmonary embolization from this location is low. Nevertheless, transient oral anticoagulation may be reasonable to resume to expedite the clearance of the clot from the right upper extremity and with progression. Nevertheless, collateral formation usually allows for improved flow and venous return from the upper extremity and thus parts counterman eliminating the swelling. At this point, I am not planning new interventional procedures. His ICD has been functioning on recent check in 12/06 and no obvious malfunction is found. His heart failure can be managed with gentle diuresis and is welcome to follow up in our office in next 4 to 6 weeks. Next point, we discussed the issues with anticoagulation, bleeding risk, but he had no problems with oral anticoagulation in the past, plaquing in the leg would be a reasonable choice. Thank you again for letting me to participate in the care of this patient. Job ID: [id number]
--- NOTE | 2021-01-04 16:47 | CON ---
DATE OF CONSULTATION: 01/04/2021 REASON FOR CONSULTATION: Heart failure. PRIMARY LAPEL BASTER: Brett Luna MD. HISTORY OF PRESENT ILLNESS: Mr. Arias is a pleasant 80-year-old white gentleman who comes to the hospital for right arm swelling. He was evaluated and diagnosed with a thrombus in the right subclavian vein right distal to the insertion of his AICD leads. He also had worsening shortness of breath. Secondary to this, he was admitted. Mildly elevated BNP. Mr. Arias feels a lot better today. He states that after he received some IV Lasix, he is breathing a lot better and feels pretty much back to normal. His right arm remains swollen, but has improved slightly. PAST MEDICAL HISTORY: 1. Nonischemic cardiomyopathy. 2. EF at 15% on last evaluation. 3. Presence of an AICD biventricular, upgraded recently, normal functioning on last evaluation in late November. 4. Type 2 diabetes. 5. Hyperlipidemia. 6. History of colon cancer. 7. Paroxysmal atrial fibrillation, status post ablation recently. SURGICAL HISTORY: 1. Colonoscopy. 2. AICD placement, replaced at least twice now. 3. Multiple orthopedic surgeries. FAMILY HISTORY: Noncontributory. SOCIAL HISTORY: No alcohol, tobacco, or drugs. Quit smoking in 1997. OUTPATIENT MEDICATIONS INCLUDE: 1. Lasix 40 mg a day. 2. Carvedilol 6.25 b.i.d. 3. Metformin. 4. Simvastatin 20 mg b.i.d. 5. Entresto 24/26 b.i.d. REVIEW OF SYSTEMS: A 12-point review of systems was done was found to be negative other than stated in the history of present illness. ALLERGIES: NO KNOWN DRUG ALLERGIES. PHYSICAL EXAMINATION: VITAL SIGNS: Temperature 97.7, pulse 96, respiratory rate 16, saturating 95% on room air, blood pressure 109/54. GENERAL: Awake, alert, oriented x3. No distress. HEENT: Normocephalic, atraumatic. NECK: Supple. LUNGS: Clear. CARDIOVASCULAR: S1, S2. No S3 or S4. No murmurs. ABDOMEN: Soft. Positive bowel sounds. EXTREMITIES: No lower extremity edema. Right upper extremity is swollen but not painful with good distal pulses and good capillary refill. LABORATORY DATA: Laboratory work was reviewed. CBC with a white count of 6, hemoglobin of 13, hematocrit of 39, platelet count of 139. Chemistries were unremarkable. BNP was 797, which is just a little bit slightly higher than normal. Troponin was negative. COVID-[address] of the thorax and chest x-ray were all reviewed as well as axial ultrasound. ASSESSMENT AND PLAN: 1. Right subclavian deep venous thrombosis. 2. Biventricular AICD in place. 3. Ischemic cardiomyopathy with acute exacerbation, improved now. PLAN: 1. Agree with getting back on his home regimen of diuresis, p.o. Lasix. 2. Continue other home medications. 3. He will need full anticoagulation for his DVT. Would recommend starting Eliquis for DVT dosage. 4. From the cardiac perspective, most likely home tomorrow morning if everything remains stable. Thank you for letting us participate in the care of your patient. We will follow. Job ID: [id number]
[2021-01-04] MEDS: Acetaminophen 325 MG TAB PO PRN (18:11)
[2021-01-04] MEDS: Apixaban 5 MG TAB PO SCH (21:26)
[2021-01-05] MEDS: Acetaminophen 325 MG TAB PO PRN ×2 (00:26→12:12)
[2021-01-05 04:43] LABS: #Basophils 0.1 thou/uL (0.0-0.2); #Eosinphils 0.1 thou/uL (0.0-0.7); #Lymphocytes 0.9 thou/uL (1.20-3.40); #Monocytes 0.6 thou/uL (0.11-0.59); #Neutrophils 3.9 thou/uL (1.40-6.50); %Eosinophils 1.7 % (0.0-10.0); %Lymphocytes 16.4 % (21.0-51.0); %Monocytes 11.3 % (0.0-10.0); %Neutrophils 69.5 % (42.0-75.0); Hemoglobin 13.5 g/dL (14.0-18.0); Mean Corpuscular HGB CONC 33.5 g/dL (32.0-36.0); Mean Corpuscular Hemoglobin 31.3 pg (27.0-31.0); Mean Corpuscular Volume 93.5 fL (78.0-98.0); Mean Platelet Volume 8.4 fL (7.4-10.4); Platelet Count 125 thou/uL (130-400); RBC Distribution Width 13.7 % (11.5-14.5); Red Blood Cell (RBC) Count 4.32 mill/uL (4.70-6.10); White Blood Cell (WBC) Count 5.7 thou/uL (4.8-10.8)
[2021-01-05 04:55] LABS: INR-International Normal Ratio 1.6; Prothrombin Time 18.9 sec (12.0-14.7)
[2021-01-05 05:07] LABS: Anion Gap 15 mmol/L (10-20); BUN (Urea Nitrogen) 19 mg/dL (8.4-25.7); Calc. Creatinine Clearance 73 mL/min (70-130); Carbon Dioxide 25 mmol/L (23-31); Chloride 101 mmol/L (98-107); Glucose 126 mg/dL (83-110); Potassium 3.7 mmol/L (3.5-5.1); Sodium 137 mmol/L (136-145)
[2021-01-05] MEDS ORDERED: Magnesium 2 GM/50 ML 2 GM in Premix Bag 1 BAG IVPB SCH (06:30)
[2021-01-05] MEDS ORDERED: Ondansetron ODT 4 MG TAB PO PRN (07:42)
[2021-01-05] MEDS ORDERED: Loratadine 10 MG TAB PO PRN (07:42)
[2021-01-05] MEDS ORDERED: Melatonin 3 MG TAB PO PRN (07:42)
[2021-01-05] MEDS ORDERED: Calcium Carbonate 500 MG ChewTAB PO PRN (07:42)
[2021-01-05] MEDS ORDERED: Cepastat Lozenges 1 LOZ PO PRN (07:42)
[2021-01-05] MEDS ORDERED: Senokot S 8.6-50 MG TAB PO PRN (07:42)
[2021-01-05] MEDS ORDERED: Sodium Chloride 0.65% Nasal 44 ML BOT EA NARE PRN (07:42)
[2021-01-05] MEDS ORDERED: Loperamide HCl 2 MG CAP PO PRN (07:42)
[2021-01-05] MEDS ORDERED: Benzonatate 100 MG CAP PO PRN (07:42)
[2021-01-05] MEDS ORDERED: GUAIFENESIN SF SOLN 200 MG/10 ML UDCUP PO PRN (07:42)
[2021-01-05] MEDS ORDERED: Bisacodyl 5 MG TAB PO PRN (07:42)
[2021-01-05] MEDS ORDERED: HumaLOG 300 UNITS/3 ML VIAL SC PRN ×2 (07:43)
[2021-01-05] MEDS: Apixaban 5 MG TAB PO SCH (09:09)
[2021-01-05] MEDS: Simvastatin 20 MG TAB PO SCH (09:10)
[2021-01-05 09:45] VITALS: BP 111/59; TEMP 98
--- NOTE | 2021-01-05 10:35 | PDOC.DS.DS ---
Provider Date of Admission: 01/03/21 21:17 Date of Discharge: 01/05/21 Admitting Provider: Curtis Gonzalez MD Consultations: Cardiology, Electrophysiology Primary Care Physician: AVILA LOVE JR, MD Course Hospital Course: Patient is a 79 year old male with PMH nonischemic cardiomyopathy w/ EF 15-20% who presents to ED for arm swelling and shortness of breath. Symptoms began 3 days ago. He reports compliance with medications including lasix. Patient denies chest pain. In ED, patient tachycardic. RUE w/ nonpitting edema. BNP elevated. tni negative. US of R upper extremity negative for DVT, CTA chest performed and no PE found, but there was a clot in the R subclavian near pacemaker leads. patient given lovenox and admitted for further workup and care. After admission cardiology evaluated this patient, electrophysiology evaluated this patient, there was no plan for any intervention by electrophysiology, they agreed with the anticoagulation, patient is completely stable, he wants to go home today, he has taken Eliquis in the past, we have given patient education about Eliquis, patient will continue Eliquis 10 mg twice daily for January 10 and then after January 11 he will start 5 mg p.o. daily Resuscitation Status: 01/04/21 04:28 Resuscitation Status Routine Resuscitation Status: FULL: Full Resuscitation Lab Results: 01/05/21 04:07 01/05/21 04:07 Abnormal Lab Results - Last 48 hrs 01/03/21 19:25: Sodium 135 L 01/03/21 19:25: B-Natriuretic Peptide 797.5 H 01/03/21 19:25: RBC 4.23 L, Hgb 13.4 L, Hct 39.8 L, MCH 31.8 H, Monocytes % 12.0 H, Monocytes # 0.8 H 01/05/21 04:07: RBC 4.32 L, Hgb 13.5 L, Hct 40.4 L, MCH 31.3 H, Plt Count 125 L, Lymphocytes % 16.4 L, Monocytes % 11.3 H, Lymphocytes # 0.9 L, Monocytes # 0.6 H 01/05/21 04:07: PT 18.9 H Vitals: Vital Signs (12 hours) Temp Pulse Resp BP BP Pulse Ox 01/05/21 08:00 98.0 F 82 12 111/59 L 96 01/05/21 03:28 97.7 F 78 16 105/54 L 98 01/05/21 00:00 84 99/57 L 01/04/21 23:34 91/54 L Weight Weight 155 lb 3.2 oz Physical Exam: The patient was seen and examined on the day of discharge. General Appearance: NAD, awake alert Eye: PERRL, anicteric sclera ENT: normocephalic atraumatic, no oropharyngeal lesions Neck: supple, symmetric, no JVD, no thyromegaly Respiratory: no wheezes, no rales, no ronchi Cardiovascular: RRR, no murmur, no gallops, no rubs Gastrointestinal: soft, non-tender, non-distended, normal bowel sounds Extremities: no clubbing, no edema Skin: normal turgor, no lesions Neurological: no focal deficits Musculoskeletal: normal tone, normal strength, no muscle wasting Plan Prescriptions: Apixaban [Eliquis] 10 mg PO BID #28 tab Apixaban [Eliquis] 5 mg PO BID #30 tablet Home Medications: Medication Instructions Recorded Confirmed Type Simvastatin [Zocor] 20 mg PO BID 09/26/18 01/03/21 History metFORMIN [Glucophage] 500 mg PO TID 09/26/18 01/03/21 History Sacubitril/Valsartan [Entresto 24 1 tab PO BID 06/07/20 01/03/21 History mg-26 mg Tablet] Carvedilol [Coreg] 6.25 mg PO BID 01/03/21 01/03/21 History Furosemide [Lasix] 40 mg PO DAILY 01/03/21 01/03/21 History Apixaban [Eliquis] 5 mg PO BID #30 tablet 01/05/21 Rx Apixaban [Eliquis] 10 mg PO BID #28 tab 01/05/21 Rx Allergies: No Known Allergies Allergy (Verified 10/02/18 22:49) Activity:: Activity as Tolerated Nourishment:: Diabetic Diet Therapies:: Not Applicable Equipment/Supplies:: Not Applicable IV Therapy:: Not Applicable Referrals: Brett Luna MD [Active] - 2-3 Weeks (Please call the office and schedule a follow up appointment) Avila Love Jr, MD [Primary Care Provider] - 7 Days (Please call the office and shedule a follow up appointment) Anil Farias MD [Immunochemist] - (Please call the office and schedule a follow up appointment in the next 4-6 w eeks. ) Disposition: HOME Quality CORE MEASURES:: N/A
[2021-01-05] MEDS: Carvedilol 6.25 MG TAB PO SCH (12:13)
[2021-01-05] MEDS: Furosemide 40 MG TAB PO SCH (12:13)
== END 2021-01-05 12:58 | disposition home or self-care (01) | DRG 299 ==
LOC: ERS 19:08 → 2NO 21:17
PROVIDERS: ADMIT Internal Medicine; ATTEND Internal Medicine
DX: I82.B11 Acute embolism and thrombosis of right subclavian vein (principal); I50.43 Acute on chronic combined systolic (congestive) and diastolic (congestive) heart failure; I42.8 Other cardiomyopathies; I11.0 Hypertensive heart disease with heart failure; E11.9 Type 2 diabetes mellitus without complications; E78.5 Hyperlipidemia, unspecified; Z20.822 Contact with and (suspected) exposure to COVID-19
CPT/HCPCS: 36415; 36416; 71045; 71275; 80048; 80053; 83735; 83880; 84484; 85025; 85610; 87635; 93005; 96372; 96374; J1650; J1940; J3475; Q9967; U0003; U0005

== ENCOUNTER 2021-10-11 18:22 | Observation (INO) | payer MEDICARE, OTHER ==
[2021-10-11 19:48] LABS: #Eosinphils 0.1 thou/uL (0.0-0.7); #Lymphocytes 1.2 thou/uL (1.20-3.40); #Monocytes 0.6 thou/uL (0.11-0.59); #Neutrophils 2.9 thou/uL (1.40-6.50); %Basophils 0.4 % (0.0-1.0); %Eosinophils 2.6 % (0.0-10.0); %Lymphocytes 24.7 % (21.0-51.0); %Monocytes 11.7 % (0.0-10.0); %Neutrophils 60.6 % (42.0-75.0); Hemoglobin 12.9 g/dL (14.0-18.0); Mean Corpuscular HGB CONC 34.4 g/dL (32.0-36.0); Mean Corpuscular Hemoglobin 32.9 pg (27.0-31.0); Mean Corpuscular Volume 95.6 fL (78.0-98.0); Mean Platelet Volume 7.8 fL (7.4-10.4); Platelet Count 132 thou/uL (130-400); RBC Distribution Width 12.9 % (11.5-14.5); Red Blood Cell (RBC) Count 3.91 mill/uL (4.70-6.10); White Blood Cell (WBC) Count 4.9 thou/uL (4.8-10.8)
[2021-10-11 20:10] LABS: ALT (SGPT) 10 U/L (8-55); AST (SGOT) 19 U/L (5-34); Alkaline Phosphatase 50 U/L (40-110); Anion Gap 14 mmol/L (10-20); BUN (Urea Nitrogen) 14 mg/dL (8.4-25.7); Bilirubin, Total 0.8 mg/dL (0.2-1.2); Calc. Creatinine Clearance 0 mL/min (70-130); Carbon Dioxide 26 mmol/L (23-31); Chloride 104 mmol/L (98-107); Globulin 2.5 g/dL (2.4-3.5); Glucose 131 mg/dL (83-110); Potassium 3.5 mmol/L (3.5-5.1); Protein, Total 6.5 g/dL (5.8-8.1); Sodium 140 mmol/L (136-145)
[2021-10-11 23:24] LABS: Troponin I 0.012 ng/mL (< 0.028)
[2021-10-11 23:31] VITALS: BMI 25.7
[2021-10-12 02:11] LABS: Troponin I 0.012 ng/mL (< 0.028)
[2021-10-12] MEDS ORDERED: Apixaban 5 MG TAB PO SCH ×2 (04:15→21:00)
[2021-10-12] MEDS ORDERED: Acetaminophen 325 MG TAB PO PRN (05:31)
[2021-10-12] MEDS ORDERED: Ondansetron PF 4 MG/2 ML Vial IVP PRN (05:31)
[2021-10-12] MEDS ORDERED: Dextrose 50% Abboject 50 ML SYRINGE SLOW IVP PRN (05:46)
[2021-10-12] MEDS ORDERED: HumaLOG 300 UNITS/3 ML VIAL SC PRN (05:46)
[2021-10-12] MEDS ORDERED: Dextrose 5% in Water 1,000 ML IV PRN (05:46)
[2021-10-12] MEDS ORDERED: Furosemide 40 MG/4 ML VIAL SLOW IVP SCH (06:00)
[2021-10-12 07:17] LABS: #Eosinphils 0.1 thou/uL (0.0-0.7); #Lymphocytes 1.1 thou/uL (1.20-3.40); #Monocytes 0.5 thou/uL (0.11-0.59); #Neutrophils 2.9 thou/uL (1.40-6.50); %Basophils 0.3 % (0.0-1.0); %Lymphocytes 23.4 % (21.0-51.0); %Monocytes 11.3 % (0.0-10.0); Hemoglobin 13.6 g/dL (14.0-18.0); Mean Corpuscular HGB CONC 33.5 g/dL (32.0-36.0); Mean Corpuscular Hemoglobin 32.2 pg (27.0-31.0); Mean Platelet Volume 7.9 fL (7.4-10.4); Platelet Count 136 thou/uL (130-400); RBC Distribution Width 12.8 % (11.5-14.5); Red Blood Cell (RBC) Count 4.23 mill/uL (4.70-6.10); White Blood Cell (WBC) Count 4.7 thou/uL (4.8-10.8)
[2021-10-12 07:40] LABS: Anion Gap 13 mmol/L (10-20); BUN (Urea Nitrogen) 14 mg/dL (8.4-25.7); Calc. Creatinine Clearance 76 mL/min (70-130); Calcium 9.5 mg/dL (7.8-10.44); Carbon Dioxide 25 mmol/L (23-31); Chloride 103 mmol/L (98-107); Glucose 123 mg/dL (83-110); Potassium 3.7 mmol/L (3.5-5.1); Sodium 137 mmol/L (136-145)
[2021-10-12] MEDS ORDERED: Carvedilol 6.25 MG TAB PO SCH (09:00)
[2021-10-12] MEDS ORDERED: Aspirin 81 mg Enteric Coated Tablet PO SCH (09:00)
[2021-10-12 15:20] VITALS: BP 109/51
[2021-10-12 15:39] LABS: SARS-CoV-2 PCR by NAA Not Detected (NotDetected)
[2021-10-12 16:03] VITALS: TEMP 97.8
[2021-10-12] MEDS ORDERED: Simvastatin 20 MG TAB PO SCH (21:00)
[2021-10-13] MEDS ORDERED: Furosemide 40 MG TAB PO SCH (07:30)
[2021-10-13] MEDS ORDERED: Spironolactone 25 MG TAB PO SCH (08:00)
== END 2021-10-12 17:15 | disposition home or self-care (01) ==
LOC: ERS 18:22 → 2SW 22:30
PROVIDERS: ADMIT Internal Medicine; ATTEND Hospitalist
DX: I11.0 Hypertensive heart disease with heart failure (principal); I50.43 Acute on chronic combined systolic (congestive) and diastolic (congestive) heart failure; I42.8 Other cardiomyopathies; E11.9 Type 2 diabetes mellitus without complications; T78.3XXA Angioneurotic edema, initial encounter; E78.5 Hyperlipidemia, unspecified; I48.0 Paroxysmal atrial fibrillation; Z86.718 Personal history of other venous thrombosis and embolism; Z87.891 Personal history of nicotine dependence; Z79.01 Long term (current) use of anticoagulants; Z79.82 Long term (current) use of aspirin; Z79.84 Long term (current) use of oral hypoglycemic drugs; Z79.899 Other long term (current) drug therapy; Z95.810 Presence of automatic (implantable) cardiac defibrillator; Z20.822 Contact with and (suspected) exposure to COVID-19
CPT/HCPCS: 70491; 71045; 71275; 80048; 80053; 82962; 83880; 84443; 84484 ×3; 85025 ×2; 85652; 86140; 93005; 93798; 96374; 99285; G0378 ×3; U0003; U0005; 36415; 36416; J1940; Q9967

== ENCOUNTER 2022-03-18 13:36 | Observation (INO) | payer MEDICARE, OTHER ==
[2022-03-18 14:19] LABS: #Lymphocytes 0.6 thou/uL (1.20-3.40); #Monocytes 0.9 thou/uL (0.11-0.59); #Neutrophils 5.9 thou/uL (1.40-6.50); %Eosinophils 0.3 % (0.0-10.0); %Lymphocytes 7.7 % (21.0-51.0); %Monocytes 11.9 % (0.0-10.0); %Neutrophils 80.2 % (42.0-75.0); Hemoglobin 14.3 g/dL (14.0-18.0); Mean Corpuscular HGB CONC 32.6 g/dL (32.0-36.0); Mean Corpuscular Hemoglobin 30.3 pg (27.0-31.0); Mean Corpuscular Volume 93.1 fL (78.0-98.0); Mean Platelet Volume 6.9 fL (7.4-10.4); Platelet Count 231 thou/uL (130-400); RBC Distribution Width 13.3 % (11.5-14.5); White Blood Cell (WBC) Count 7.4 thou/uL (4.8-10.8)
[2022-03-18 14:33] LABS: INR-International Normal Ratio 1.4; PTT 41.6 sec (22.9-36.1); Prothrombin Time 17.1 sec (12.0-14.7)
[2022-03-18 14:39] LABS: ALT (SGPT) 22 U/L (8-55); AST (SGOT) 24 U/L (5-34); Albumin 3.9 g/dL (3.4-4.8); Alkaline Phosphatase 96 U/L (40-110); Anion Gap 18 mmol/L (10-20); BUN (Urea Nitrogen) 20 mg/dL (8.4-25.7); Bilirubin, Total 1.3 mg/dL (0.2-1.2); Calc. Creatinine Clearance 0 mL/min (70-130); Calcium 9.2 mg/dL (7.8-10.44); Carbon Dioxide 25 mmol/L (23-31); Chloride 89 mmol/L (98-107); Globulin 2.8 g/dL (2.4-3.5); Glucose 112 mg/dL (83-110); Magnesium 2.1 mg/dL (1.6-2.6); Potassium 4.7 mmol/L (3.5-5.1); Protein, Total 6.7 g/dL (5.8-8.1); Sodium 127 mmol/L (136-145)
[2022-03-18] MEDS ORDERED: Acetaminophen 650 MG Suppository PR PRN (17:33)
[2022-03-18] MEDS ORDERED: Enoxaparin Sodium 40 MG/0.4 ML SYRINGE SC SCH (17:45)
[2022-03-18] MEDS ORDERED: Carvedilol 6.25 MG TAB PO SCH (17:45)
[2022-03-18] MEDS ORDERED: Sodium Chloride 0.9% 1,000 ML IV SCH (17:45)
[2022-03-18 18:05] LABS: Sodium 126 mmol/L (136-145)
[2022-03-18 18:08] LABS: Troponin I 0.012 ng/mL (< 0.028)
[2022-03-18 19:04] VITALS: BMI 25.7
[2022-03-18 20:42] LABS: Troponin I 0.014 ng/mL (< 0.028)
[2022-03-18] MEDS ORDERED: Atorvastatin Calcium 10 MG TAB PO SCH (21:00)
[2022-03-18 23:48] LABS: Bacteria/HPF None Seen HPF (None Seen); Bilirubin Negative (Negative); Blood, Urine Negative (Negative); Clarity Clear (Clear); Glucose, Urine (Dipstick) Greater than 1000 mg/dL (Negative); Ketone, Urine 20 mg/dL (Negative); Leukocyte Negative Leu/uL (Negative); Nitrite Negative (Negative); Protein, Urine (Dipstick) Negative (Neg-Trace); RBC/HPF 0-3 HPF (0-3); Specific Gravity, Urine 1.026 (1.002-1.036); Squamous Epithelial None Seen HPF (0-3); WBC/HPF 0-3 HPF (0-3)
[2022-03-18 23:55] LABS: Urine Culture Reflex No No
[2022-03-19 00:10] LABS: Sodium 128 mmol/L (136-145)
[2022-03-19 05:23] LABS: #Lymphocytes 0.5 thou/uL (1.20-3.40); #Monocytes 0.7 thou/uL (0.11-0.59); #Neutrophils 3.8 thou/uL (1.40-6.50); %Eosinophils 0.6 % (0.0-10.0); %Lymphocytes 9.8 % (21.0-51.0); %Monocytes 13.9 % (0.0-10.0); %Neutrophils 75.7 % (42.0-75.0); Hemoglobin 13.2 g/dL (14.0-18.0); Mean Corpuscular HGB CONC 33.7 g/dL (32.0-36.0); Mean Corpuscular Hemoglobin 31.5 pg (27.0-31.0); Mean Corpuscular Volume 93.5 fL (78.0-98.0); Mean Platelet Volume 7.4 fL (7.4-10.4); Platelet Count 206 thou/uL (130-400); RBC Distribution Width 13.9 % (11.5-14.5); Red Blood Cell (RBC) Count 4.19 mill/uL (4.70-6.10)
[2022-03-19 05:45] LABS: Anion Gap 15 mmol/L (10-20); BUN (Urea Nitrogen) 14 mg/dL (8.4-25.7); Calc. Creatinine Clearance 66 mL/min (70-130); Carbon Dioxide 25 mmol/L (23-31); Chloride 94 mmol/L (98-107); Glucose 112 mg/dL (83-110); Potassium 4.4 mmol/L (3.5-5.1); Sodium 130 mmol/L (136-145)
[2022-03-19] MEDS: Carvedilol 6.25 MG TAB PO SCH ×2 (08:24→17:57)
[2022-03-19] MEDS: metFORMIN 500 MG TAB PO SCH ×3 (08:24→17:57)
[2022-03-19] MEDS: Acetaminophen 325 MG TAB PO PRN ×2 (08:26→14:37)
[2022-03-19] MEDS ORDERED: Apixaban 5 MG TAB PO SCH (09:00)
[2022-03-19] MEDS ORDERED: Aspirin 81 mg Enteric Coated Tablet PO SCH (09:00)
[2022-03-19] MEDS ORDERED: Empagliflozin 10 MG TAB PO SCH (09:00)
[2022-03-19] MEDS ORDERED: Enoxaparin Sodium 40 MG/0.4 ML SYRINGE SC SCH (09:00)
[2022-03-19] MEDS ORDERED: Magnesium Oxide 400 MG TAB PO SCH (09:00)
[2022-03-19 12:19] LABS: SARS-CoV-2 PCR by NAA Not Detected (NotDetected)
[2022-03-19 12:30] LABS: Sodium 130 mmol/L (136-145)
[2022-03-19 15:19] VITALS: TEMP 97.9
[2022-03-19 15:42] VITALS: BP 101/57
[2022-03-19 18:07] LABS: Sodium 130 mmol/L (136-145)
== END 2022-03-19 18:21 | disposition home or self-care (01) ==
LOC: ERS 13:36 → 2SW 17:02
PROVIDERS: ADMIT Emergency Medicine; ATTEND Emergency Medicine
DX: E86.9 Volume depletion, unspecified (principal); R55 Syncope and collapse; E87.1 Hypo-osmolality and hyponatremia; E11.9 Type 2 diabetes mellitus without complications; I11.0 Hypertensive heart disease with heart failure; I50.20 Unspecified systolic (congestive) heart failure; E78.5 Hyperlipidemia, unspecified; G89.29 Other chronic pain; M54.9 Dorsalgia, unspecified; M25.552 Pain in left hip; I08.1 Rheumatic disorders of both mitral and tricuspid valves; Z85.038 Personal history of other malignant neoplasm of large intestine; Z86.718 Personal history of other venous thrombosis and embolism; Z79.01 Long term (current) use of anticoagulants; Z79.82 Long term (current) use of aspirin; Z79.84 Long term (current) use of oral hypoglycemic drugs; Z79.899 Other long term (current) drug therapy; Z95.810 Presence of automatic (implantable) cardiac defibrillator; Z20.822 Contact with and (suspected) exposure to COVID-19
CPT/HCPCS: 70450; 71045; 72125; 80048; 80053; 81001; 82962 ×2; 83735; 83880; 83930; 83935; 84295 ×2; 84300; 84484 ×2; 84560; 85025 ×2; 85610; 85730; 93005; 93306; 94760; 97139 ×3; 97530; 99285; U0003; U0005; 36415; 36416; 96372; G0378; J1650; J7050

== ENCOUNTER 2022-04-09 16:45 | Inpatient (IN) | payer MEDICARE, OTHER ==
[2022-04-09 17:18] LABS: #Eosinphils 0.1 thou/uL (0.0-0.7); #Lymphocytes 0.7 thou/uL (1.20-3.40); #Monocytes 1.1 thou/uL (0.11-0.59); #Neutrophils 6.6 thou/uL (1.40-6.50); %Eosinophils 0.9 % (0.0-10.0); %Lymphocytes 8.6 % (21.0-51.0); %Monocytes 12.4 % (0.0-10.0); %Neutrophils 78.1 % (42.0-75.0); Hemoglobin 13.1 g/dL (14.0-18.0); Mean Corpuscular HGB CONC 34.3 g/dL (32.0-36.0); Mean Corpuscular Hemoglobin 31.3 pg (27.0-31.0); Mean Corpuscular Volume 91.5 fL (78.0-98.0); Mean Platelet Volume 7.2 fL (7.4-10.4); Platelet Count 242 thou/uL (130-400); RBC Distribution Width 15.1 % (11.5-14.5); Red Blood Cell (RBC) Count 4.18 mill/uL (4.70-6.10); White Blood Cell (WBC) Count 8.4 thou/uL (4.8-10.8)
[2022-04-09 17:35] LABS: ALT (SGPT) 14 U/L (8-55); AST (SGOT) 20 U/L (5-34); Albumin 3.5 g/dL (3.4-4.8); Alkaline Phosphatase 101 U/L (40-110); Anion Gap 15 mmol/L (10-20); BUN (Urea Nitrogen) 12 mg/dL (8.4-25.7); Bilirubin, Total 0.9 mg/dL (0.2-1.2); Calc. Creatinine Clearance 0 mL/min (70-130); Carbon Dioxide 23 mmol/L (23-31); Chloride 94 mmol/L (98-107); Globulin 3.2 g/dL (2.4-3.5); Glucose 120 mg/dL (83-110); Potassium 4.3 mmol/L (3.5-5.1); Protein, Total 6.7 g/dL (5.8-8.1); Sodium 128 mmol/L (136-145)
[2022-04-09 20:48] LABS: Lactic Acid 2.2 mmol/L (0.5-2.2)
[2022-04-09] MEDS ORDERED: Acetaminophen 500 MG TAB ONE (23:27)
[2022-04-10] MEDS ORDERED: Zolpidem Tartrate 5 MG TAB PO PRN (01:37)
[2022-04-10] MEDS ORDERED: Dextrose 5% in Water 1,000 ML IV PRN (01:37)
[2022-04-10] MEDS ORDERED: Dextrose 50% Abboject 50 ML SYRINGE SLOW IVP PRN (01:37)
[2022-04-10] MEDS ORDERED: HumaLOG 300 UNITS/3 ML VIAL SC PRN ×2 (01:37)
[2022-04-10] MEDS ORDERED: Ondansetron PF 4 MG/2 ML Vial IVP PRN (01:37)
[2022-04-10] MEDS ORDERED: Bisacodyl 5 MG TAB PO PRN (01:37)
[2022-04-10] MEDS ORDERED: Acetaminophen 325 MG TAB PO PRN (01:37)
[2022-04-10] MEDS ORDERED: Furosemide 40 MG/4 ML VIAL SLOW IVP SCH (01:45)
[2022-04-10 02:38] LABS: Magnesium 1.6 mg/dL (1.6-2.6)
[2022-04-10 03:57] LABS: #Eosinphils 0.1 thou/uL (0.0-0.7); #Lymphocytes 0.7 thou/uL (1.20-3.40); #Neutrophils 5.8 thou/uL (1.40-6.50); %Basophils 0.6 % (0.0-1.0); %Lymphocytes 8.9 % (21.0-51.0); %Monocytes 13.2 % (0.0-10.0); %Neutrophils 76.3 % (42.0-75.0); Mean Corpuscular HGB CONC 33.3 g/dL (32.0-36.0); Mean Corpuscular Hemoglobin 30.3 pg (27.0-31.0); Mean Corpuscular Volume 90.9 fL (78.0-98.0); Mean Platelet Volume 6.4 fL (7.4-10.4); Platelet Count 211 thou/uL (130-400); RBC Distribution Width 14.5 % (11.5-14.5); Red Blood Cell (RBC) Count 4.29 mill/uL (4.70-6.10); White Blood Cell (WBC) Count 7.7 thou/uL (4.8-10.8)
[2022-04-10 04:19] LABS: ALT (SGPT) 13 U/L (8-55); AST (SGOT) 17 U/L (5-34); Albumin 3.4 g/dL (3.4-4.8); Alkaline Phosphatase 99 U/L (40-110); Anion Gap 16 mmol/L (10-20); BUN (Urea Nitrogen) 14 mg/dL (8.4-25.7); Bilirubin, Total 0.7 mg/dL (0.2-1.2); Calc. Creatinine Clearance 0 mL/min (70-130); Calcium 9.2 mg/dL (7.8-10.44); Carbon Dioxide 24 mmol/L (23-31); Chloride 94 mmol/L (98-107); Globulin 3.1 g/dL (2.4-3.5); Glucose 105 mg/dL (83-110); Potassium 4.6 mmol/L (3.5-5.1); Protein, Total 6.5 g/dL (5.8-8.1); Sodium 129 mmol/L (136-145)
[2022-04-10] MEDS ORDERED: Aspirin 81 mg Enteric Coated Tablet ONE (09:18)
[2022-04-10] MEDS ORDERED: Furosemide 40 MG TAB ONE (09:18)
[2022-04-10] MEDS ORDERED: HYDROcodone/Acetaminophen 5/325 mg Tablet ONE (09:40)
[2022-04-10] MEDS: metFORMIN 500 MG TAB PO SCH ×3 (09:44→17:33)
[2022-04-10] MEDS: Empagliflozin 10 MG TAB PO SCH (09:44)
[2022-04-10] MEDS: HYDROcodone/Acetaminophen 5/325 mg Tablet PO PRN ×3 (09:44→20:10)
[2022-04-10] MEDS: Carvedilol 6.25 MG TAB PO SCH ×2 (09:44→17:33)
[2022-04-10] MEDS: Aspirin 81 mg Enteric Coated Tablet PO SCH (09:44)
[2022-04-10] MEDS: Magnesium Oxide 400 MG TAB PO SCH (09:44)
[2022-04-10] MEDS: Apixaban 5 MG TAB PO SCH ×2 (09:44→20:10)
[2022-04-10] MEDS: Furosemide 40 MG TAB PO SCH (09:44)
[2022-04-10 09:52] LABS: Bilirubin Negative (Negative); Blood, Urine Negative (Negative); Clarity Clear (Clear); Glucose, Urine (Dipstick) 500 mg/dL (Negative); Ketone, Urine 20 mg/dL (Negative); Leukocyte Negative Leu/uL (Negative); Nitrite Negative (Negative); Protein, Urine (Dipstick) Negative (Neg-Trace); Specific Gravity, Urine 1.017 (1.002-1.036); pH, Urine 6.5 (5.0-9.0)
[2022-04-10] MEDS ORDERED: Heparin 1,000 UNITS/ML VIAL ONE (13:11)
[2022-04-10] MEDS: Gabapentin 300 MG CAP PO SCH ×2 (14:21→20:09)
[2022-04-10] MEDS: Atorvastatin Calcium 10 MG TAB PO SCH (20:10)
[2022-04-11] MEDS: HYDROcodone/Acetaminophen 5/325 mg Tablet PO PRN ×3 (00:31→09:11)
[2022-04-11] MEDS: Furosemide 40 MG TAB PO SCH (06:44)
[2022-04-11] MEDS ORDERED: Furosemide 40 MG/4 ML VIAL SLOW IVP SCH ×2 (08:00→14:45)
[2022-04-11] MEDS ORDERED: Iopamidol-370 76% 500 ML 1 ML ONE (08:30)
[2022-04-11] MEDS: Aspirin 81 mg Enteric Coated Tablet PO SCH (09:10)
[2022-04-11] MEDS: Empagliflozin 10 MG TAB PO SCH (09:10)
[2022-04-11] MEDS: metFORMIN 500 MG TAB PO SCH ×3 (09:11→17:51)
[2022-04-11] MEDS: Carvedilol 6.25 MG TAB PO SCH ×2 (09:11→17:51)
[2022-04-11] MEDS: Magnesium Oxide 400 MG TAB PO SCH (09:11)
[2022-04-11] MEDS: Gabapentin 300 MG CAP PO SCH ×3 (09:11→20:10)
[2022-04-11] MEDS: Apixaban 5 MG TAB PO SCH ×2 (09:11→20:09)
[2022-04-11] MEDS ORDERED: Loperamide HCl 2 MG CAP PO PRN (10:57)
[2022-04-11] MEDS ORDERED: Cepastat Lozenges 1 LOZ PO PRN (10:57)
[2022-04-11] MEDS ORDERED: Artificial Tear Sol 15 ML BOT EA EYE PRN (10:57)
[2022-04-11] MEDS ORDERED: Moisturizing Cream (Eucerin) 113 GM JAR TOP PRN (10:57)
[2022-04-11] MEDS ORDERED: hydrALAZINE 20 MG/ML VIAL SLOW IVP PRN (10:57)
[2022-04-11] MEDS ORDERED: Loratadine 10 MG TAB PO PRN (10:57)
[2022-04-11] MEDS ORDERED: GUAIFENESIN SF SOLN 200 MG/10 ML UDCUP PO PRN (10:57)
[2022-04-11] MEDS ORDERED: Calcium Carbonate 500 MG ChewTAB PO PRN (10:57)
[2022-04-11] MEDS ORDERED: Vancomycin 1.5 GRAM/300 ML BAG 1.5 GM in Premix Bag 1 BAG IVPB SCH (11:30)
[2022-04-11] MEDS: AMPicillin 2 GM in Sodium Chloride 0.9% 100 ML IVPB SCH ×2 (17:51→22:32)
[2022-04-11] MEDS: Atorvastatin Calcium 10 MG TAB PO SCH (20:11)
[2022-04-12] MEDS: AMPicillin 2 GM in Sodium Chloride 0.9% 100 ML IVPB SCH ×6 (01:55→21:10)
[2022-04-12] MEDS: HYDROcodone/Acetaminophen 5/325 mg Tablet PO PRN (05:25)
[2022-04-12] MEDS: Magnesium Oxide 400 MG TAB PO SCH (09:44)
[2022-04-12] MEDS: Carvedilol 6.25 MG TAB PO SCH ×2 (09:44→17:16)
[2022-04-12] MEDS: Empagliflozin 10 MG TAB PO SCH (09:45)
[2022-04-12] MEDS: Aspirin 81 mg Enteric Coated Tablet PO SCH (09:45)
[2022-04-12] MEDS: metFORMIN 500 MG TAB PO SCH ×3 (09:45→17:16)
[2022-04-12] MEDS: Gabapentin 300 MG CAP PO SCH ×3 (09:45→21:11)
[2022-04-12] MEDS: Apixaban 5 MG TAB PO SCH ×2 (09:45→21:11)
[2022-04-12] MEDS ORDERED: VANCOMYCIN 1.25 GM/250 ML BAG 1.25 GM in Premix Bag 1 BAG IVPB SCH (11:00)
[2022-04-12] MEDS: oxyCODONE/Acetaminophen 5 mg/325 mg Tablet PO PRN (12:05)
[2022-04-12] MEDS: Atorvastatin Calcium 10 MG TAB PO SCH (21:11)
[2022-04-13] MEDS: AMPicillin 2 GM in Sodium Chloride 0.9% 100 ML IVPB SCH ×6 (00:57→21:54)
[2022-04-13] MEDS: oxyCODONE/Acetaminophen 5 mg/325 mg Tablet PO PRN ×3 (04:24→17:08)
[2022-04-13 05:01] LABS: #Eosinphils 0.1 thou/uL (0.0-0.7); #Lymphocytes 0.8 thou/uL (1.20-3.40); #Monocytes 0.7 thou/uL (0.11-0.59); #Neutrophils 4.8 thou/uL (1.40-6.50); %Basophils 0.5 % (0.0-1.0); %Eosinophils 1.5 % (0.0-10.0); %Lymphocytes 12.7 % (21.0-51.0); %Monocytes 10.7 % (0.0-10.0); %Neutrophils 74.6 % (42.0-75.0); Hemoglobin 12.2 g/dL (14.0-18.0); Mean Corpuscular HGB CONC 32.5 g/dL (32.0-36.0); Mean Corpuscular Hemoglobin 30.5 pg (27.0-31.0); Mean Corpuscular Volume 93.8 fL (78.0-98.0); Mean Platelet Volume 6.5 fL (7.4-10.4); Platelet Count 229 thou/uL (130-400); RBC Distribution Width 14.6 % (11.5-14.5); Red Blood Cell (RBC) Count 3.99 mill/uL (4.70-6.10); White Blood Cell (WBC) Count 6.4 thou/uL (4.8-10.8)
[2022-04-13 05:11] LABS: ALT (SGPT) 19 U/L (8-55); AST (SGOT) 28 U/L (5-34); Albumin 3.2 g/dL (3.4-4.8); Alkaline Phosphatase 86 U/L (40-110); Anion Gap 14 mmol/L (10-20); BUN (Urea Nitrogen) 12 mg/dL (8.4-25.7); Bilirubin, Total 0.7 mg/dL (0.2-1.2); CRP (Inflammatory) 7.84 mg/dL (= or < 0.5); Calc. Creatinine Clearance 75 mL/min (70-130); Calcium 8.9 mg/dL (7.8-10.44); Carbon Dioxide 26 mmol/L (23-31); Chloride 97 mmol/L (98-107); Globulin 2.9 g/dL (2.4-3.5); Glucose 108 mg/dL (83-110); Magnesium 1.9 mg/dL (1.6-2.6); Phosphorus 3.6 mg/dL (2.3-4.7); Protein, Total 6.1 g/dL (5.8-8.1); Sodium 133 mmol/L (136-145)
[2022-04-13] MEDS: Aspirin 81 mg Enteric Coated Tablet PO SCH (09:07)
[2022-04-13] MEDS: Carvedilol 6.25 MG TAB PO SCH ×2 (09:07→17:09)
[2022-04-13] MEDS: Magnesium Oxide 400 MG TAB PO SCH (09:07)
[2022-04-13] MEDS: Gabapentin 300 MG CAP PO SCH ×3 (09:08→21:52)
[2022-04-13] MEDS: Apixaban 5 MG TAB PO SCH ×2 (09:08→21:52)
[2022-04-13] MEDS: metFORMIN 500 MG TAB PO SCH ×3 (09:08→17:09)
[2022-04-13] MEDS: Empagliflozin 10 MG TAB PO SCH (09:08)
[2022-04-13] MEDS: Atorvastatin Calcium 10 MG TAB PO SCH (21:52)
[2022-04-14] MEDS: AMPicillin 2 GM in Sodium Chloride 0.9% 100 ML IVPB SCH ×6 (00:15→20:09)
[2022-04-14] MEDS: oxyCODONE/Acetaminophen 5 mg/325 mg Tablet PO PRN ×3 (00:47→17:02)
[2022-04-14] MEDS: Apixaban 5 MG TAB PO SCH ×2 (09:12→20:09)
[2022-04-14] MEDS: Aspirin 81 mg Enteric Coated Tablet PO SCH (09:12)
[2022-04-14] MEDS: Gabapentin 300 MG CAP PO SCH ×3 (09:12→20:09)
[2022-04-14] MEDS: Magnesium Oxide 400 MG TAB PO SCH (09:12)
[2022-04-14] MEDS: Carvedilol 6.25 MG TAB PO SCH ×2 (09:13→17:02)
[2022-04-14] MEDS: metFORMIN 500 MG TAB PO SCH ×3 (09:13→17:02)
[2022-04-14] MEDS: Empagliflozin 10 MG TAB PO SCH (09:13)
[2022-04-14] MEDS: Atorvastatin Calcium 10 MG TAB PO SCH (20:09)
[2022-04-15] MEDS: AMPicillin 2 GM in Sodium Chloride 0.9% 100 ML IVPB SCH ×6 (00:22→20:44)
[2022-04-15] MEDS: oxyCODONE/Acetaminophen 5 mg/325 mg Tablet PO PRN ×4 (00:26→22:56)
[2022-04-15] MEDS: Carvedilol 6.25 MG TAB PO SCH ×2 (08:02→17:17)
[2022-04-15] MEDS: metFORMIN 500 MG TAB PO SCH ×3 (08:02→17:16)
[2022-04-15] MEDS: Gabapentin 300 MG CAP PO SCH ×3 (10:30→20:45)
[2022-04-15] MEDS: Empagliflozin 10 MG TAB PO SCH (10:30)
[2022-04-15] MEDS: Apixaban 5 MG TAB PO SCH ×2 (10:31→20:44)
[2022-04-15] MEDS: Magnesium Oxide 400 MG TAB PO SCH (10:31)
[2022-04-15] MEDS: Aspirin 81 mg Enteric Coated Tablet PO SCH (10:31)
[2022-04-15] MEDS: cefTRIAXone\\ROCEPHIN 2 GM in Sodium Chloride 0.9% 100 ML IVPB SCH (14:34)
[2022-04-15] MEDS: Atorvastatin Calcium 10 MG TAB PO SCH (20:44)
[2022-04-16] MEDS: AMPicillin 2 GM in Sodium Chloride 0.9% 100 ML IVPB SCH ×6 (00:27→20:45)
[2022-04-16] MEDS: cefTRIAXone\\ROCEPHIN 2 GM in Sodium Chloride 0.9% 100 ML IVPB SCH ×2 (01:06→13:54)
[2022-04-16] MEDS: oxyCODONE/Acetaminophen 5 mg/325 mg Tablet PO PRN ×3 (07:49→20:44)
[2022-04-16] MEDS: Carvedilol 6.25 MG TAB PO SCH ×2 (09:23→16:47)
[2022-04-16] MEDS: Aspirin 81 mg Enteric Coated Tablet PO SCH (09:23)
[2022-04-16] MEDS: metFORMIN 500 MG TAB PO SCH ×3 (09:24→16:48)
[2022-04-16] MEDS: Empagliflozin 10 MG TAB PO SCH (09:24)
[2022-04-16] MEDS: Apixaban 5 MG TAB PO SCH ×2 (09:24→20:45)
[2022-04-16] MEDS: Magnesium Oxide 400 MG TAB PO SCH (09:24)
[2022-04-16] MEDS: Gabapentin 300 MG CAP PO SCH ×3 (09:25→20:45)
[2022-04-16 15:30] VITALS: BMI 22.1
[2022-04-16] MEDS: Atorvastatin Calcium 10 MG TAB PO SCH (20:45)
[2022-04-17] MEDS: cefTRIAXone\\ROCEPHIN 2 GM in Sodium Chloride 0.9% 100 ML IVPB SCH ×2 (00:56→13:42)
[2022-04-17] MEDS: AMPicillin 2 GM in Sodium Chloride 0.9% 100 ML IVPB SCH ×5 (01:57→14:48)
[2022-04-17] MEDS: oxyCODONE/Acetaminophen 5 mg/325 mg Tablet PO PRN ×3 (02:03→13:41)
[2022-04-17 08:02] LABS: #Eosinphils 0.1 thou/uL (0.0-0.7); #Lymphocytes 0.6 thou/uL (1.20-3.40); #Monocytes 0.6 thou/uL (0.11-0.59); #Neutrophils 5.4 thou/uL (1.40-6.50); %Basophils 0.6 % (0.0-1.0); %Eosinophils 2.1 % (0.0-10.0); %Lymphocytes 9.5 % (21.0-51.0); %Monocytes 8.1 % (0.0-10.0); %Neutrophils 79.7 % (42.0-75.0); Hemoglobin 12.3 g/dL (14.0-18.0); Mean Corpuscular HGB CONC 32.2 g/dL (32.0-36.0); Mean Corpuscular Hemoglobin 30.7 pg (27.0-31.0); Mean Corpuscular Volume 95.2 fL (78.0-98.0); Mean Platelet Volume 6.7 fL (7.4-10.4); Platelet Count 245 thou/uL (130-400); RBC Distribution Width 14.8 % (11.5-14.5); Red Blood Cell (RBC) Count 4.01 mill/uL (4.70-6.10); White Blood Cell (WBC) Count 6.8 thou/uL (4.8-10.8)
[2022-04-17 08:24] LABS: Anion Gap 12 mmol/L (10-20); BUN (Urea Nitrogen) 8 mg/dL (8.4-25.7); Calc. Creatinine Clearance 80 mL/min (70-130); Calcium 8.6 mg/dL (7.8-10.44); Carbon Dioxide 24 mmol/L (23-31); Chloride 99 mmol/L (98-107); Glucose 89 mg/dL (83-110); Potassium 4.1 mmol/L (3.5-5.1); Sodium 131 mmol/L (136-145)
[2022-04-17] MEDS: Apixaban 5 MG TAB PO SCH (09:02)
[2022-04-17] MEDS: Aspirin 81 mg Enteric Coated Tablet PO SCH (09:02)
[2022-04-17] MEDS: Empagliflozin 10 MG TAB PO SCH (09:02)
[2022-04-17] MEDS: Carvedilol 6.25 MG TAB PO SCH (09:02)
[2022-04-17] MEDS: Gabapentin 300 MG CAP PO SCH ×2 (09:03→14:47)
[2022-04-17] MEDS: Magnesium Oxide 400 MG TAB PO SCH (09:03)
[2022-04-17] MEDS: metFORMIN 500 MG TAB PO SCH ×2 (09:03→12:45)
[2022-04-17 13:04] VITALS: BP 106/51; TEMP 98
== END 2022-04-17 15:58 | DRG 539 ==
LOC: ERS 16:45 → ERHOLD 04-10 01:15 → 2NO 04-10 01:17 → OBSVTOIN 04-11 10:58
PROVIDERS: ADMIT Internal Medicine; ATTEND Internal Medicine
PROC: 05H633Z Insertion of Infusion Device into Left Subclavian Vein, Percutaneous Approach (ICD-10-PCS; principal; 2022-04-14)
PROC: B5171ZA Fluoroscopy of Left Subclavian Vein using Low Osmolar Contrast, Guidance (ICD-10-PCS; 2022-04-14)
PROC: B547ZZA Ultrasonography of Left Subclavian Vein, Guidance (ICD-10-PCS; 2022-04-14)
DX: M46.26 Osteomyelitis of vertebra, lumbar region (principal); I50.23 Acute on chronic systolic (congestive) heart failure; I42.8 Other cardiomyopathies; E87.1 Hypo-osmolality and hyponatremia; I82.B12 Acute embolism and thrombosis of left subclavian vein; M84.48XA Pathological fracture, other site, initial encounter for fracture; R78.81 Bacteremia; B99.8 Other infectious disease; M46.46 Discitis, unspecified, lumbar region; M48.061 Spinal stenosis, lumbar region without neurogenic claudication; Z20.822 Contact with and (suspected) exposure to COVID-19; E11.9 Type 2 diabetes mellitus without complications; M16.12 Unilateral primary osteoarthritis, left hip; M47.816 Spondylosis without myelopathy or radiculopathy, lumbar region; I48.91 Unspecified atrial fibrillation; I11.0 Hypertensive heart disease with heart failure; Z95.810 Presence of automatic (implantable) cardiac defibrillator; Z86.718 Personal history of other venous thrombosis and embolism; Z79.84 Long term (current) use of oral hypoglycemic drugs; Z79.899 Other long term (current) drug therapy; Z79.82 Long term (current) use of aspirin; Z85.038 Personal history of other malignant neoplasm of large intestine; Z79.01 Long term (current) use of anticoagulants; Z90.49 Acquired absence of other specified parts of digestive tract
CPT/HCPCS: 36415; 36416; 36569; 71045; 72132; 80048; 80053; 81003; 83605; 83735; 83880; 84100; 85025; 85652; 86140; 87040; 87077; 87149; 87186; 93005; 93306; 96374; C1751; G0378; J0290; J0696; J1644; J1940; J3370; J3490; Q9967; U0003; U0005

== ENCOUNTER 2022-04-23 14:27 | Observation (INO) | payer MEDICARE, OTHER ==
[~2022-04-23 14:27] MED LIST changes: +ISOVUE-370 76%-LOCM 1 ML ONE; -Iopamidol-370 76% 500 ML 1 ML ONE
[2022-04-23 15:17] LABS: #Eosinphils 0.2 thou/uL (0.0-0.7); #Lymphocytes 0.7 thou/uL (1.20-3.40); #Monocytes 0.7 thou/uL (0.11-0.59); #Neutrophils 5.2 thou/uL (1.40-6.50); %Basophils 0.1 % (0.0-1.0); %Eosinophils 2.3 % (0.0-10.0); %Lymphocytes 10.8 % (21.0-51.0); %Monocytes 10.8 % (0.0-10.0); %Neutrophils 76.1 % (42.0-75.0); Mean Corpuscular HGB CONC 32.8 g/dL (32.0-36.0); Mean Corpuscular Hemoglobin 30.9 pg (27.0-31.0); Mean Corpuscular Volume 94.3 fL (78.0-98.0); Mean Platelet Volume 6.7 fL (7.4-10.4); Platelet Count 228 thou/uL (130-400); RBC Distribution Width 15.5 % (11.5-14.5); White Blood Cell (WBC) Count 6.8 thou/uL (4.8-10.8)
[2022-04-23 15:42] LABS: ALT (SGPT) 21 U/L (8-55); AST (SGOT) 27 U/L (5-34); Albumin 3.1 g/dL (3.4-4.8); Alkaline Phosphatase 86 U/L (40-110); Anion Gap 15 mmol/L (10-20); BUN (Urea Nitrogen) 19 mg/dL (8.4-25.7); Bilirubin, Total 0.5 mg/dL (0.2-1.2); Calc. Creatinine Clearance 0 mL/min (70-130); Calcium 8.7 mg/dL (7.8-10.44); Carbon Dioxide 24 mmol/L (23-31); Chloride 100 mmol/L (98-107); Glucose 98 mg/dL (83-110); Potassium 3.1 mmol/L (3.5-5.1); Protein, Total 6.1 g/dL (5.8-8.1); Sodium 136 mmol/L (136-145)
[2022-04-23 17:17] LABS: Bacteria/HPF None Seen HPF (None Seen); Bilirubin Negative (Negative); Blood, Urine Negative (Negative); Clarity Clear (Clear); Glucose, Urine (Dipstick) Greater than 1000 mg/dL (Negative); Ketone, Urine Negative (Negative); Leukocyte 25 Leu/uL (Negative); Nitrite Negative (Negative); Protein, Urine (Dipstick) Negative (Neg-Trace); RBC/HPF 0-3 HPF (0-3); Specific Gravity, Urine 1.037 (1.002-1.036); Squamous Epithelial None Seen HPF (0-3); Urobilinogen Normal mg/dL (Less than 2); WBC/HPF 0-3 HPF (0-3); pH, Urine 6.5 (5.0-9.0)
[2022-04-23] MEDS ORDERED: diphenhydrAMINE 50 MG/ML VIAL ONE (17:31)
[2022-04-23] MEDS ORDERED: methylPREDNISolone Sod Succ/PF 125 MG/2 ML VIAL ONE (17:31)
[2022-04-23] MEDS ORDERED: Famotidine 40 MG/4 ML VIAL SLOW IVP SCH (17:45)
[2022-04-23] MEDS ORDERED: Loratadine 10 MG TAB PO PRN (20:19)
[2022-04-23] MEDS ORDERED: Ondansetron PF 4 MG/2 ML Vial IVP PRN (20:19)
[2022-04-23] MEDS ORDERED: Zolpidem Tartrate 5 MG TAB PO PRN (20:19)
[2022-04-23 20:21] VITALS: BMI 22.6
[2022-04-23] MEDS ORDERED: Potassium Chloride 20 MEQ TAB PO SCH (21:00)
[2022-04-23] MEDS: diphenhydrAMINE 50 MG/ML VIAL IVP SCH (21:40)
[2022-04-23] MEDS: Atorvastatin Calcium 10 MG TAB PO SCH (21:40)
[2022-04-23] MEDS: Apixaban 5 MG TAB PO SCH (21:40)
[2022-04-23] MEDS: Gabapentin 300 MG CAP PO SCH (21:40)
[2022-04-23] MEDS: Famotidine 20 MG TAB PO SCH (21:40)
[2022-04-23] MEDS: Ampicillin 2 GM in Sodium Chloride 0.9% 100 ML IVPB SCH (21:41)
[2022-04-24] MEDS ORDERED: cefTRIAXone\\ROCEPHIN 2 GM VIAL IVPB SCH (01:00)
[2022-04-24] MEDS: Ampicillin 2 GM in Sodium Chloride 0.9% 100 ML IVPB SCH ×6 (01:33→21:39)
[2022-04-24] MEDS: methylPREDNISolone Sod Succ 40 MG VIAL IVP SCH ×3 (01:33→12:45)
[2022-04-24] MEDS: cefTRIAXone\\ROCEPHIN 2 GM in Sodium Chloride 0.9% 100 ML IVPB SCH ×2 (01:39→12:45)
[2022-04-24 04:26] LABS: #Lymphocytes 0.4 thou/uL (1.20-3.40); #Monocytes 0.1 thou/uL (0.11-0.59); #Neutrophils 2.9 thou/uL (1.40-6.50); %Eosinophils 0.2 % (0.0-10.0); %Lymphocytes 12.3 % (21.0-51.0); %Monocytes 1.5 % (0.0-10.0); %Neutrophils 86.1 % (42.0-75.0); Hemoglobin 12.2 g/dL (14.0-18.0); Mean Corpuscular HGB CONC 32.2 g/dL (32.0-36.0); Mean Corpuscular Hemoglobin 30.8 pg (27.0-31.0); Mean Corpuscular Volume 95.5 fL (78.0-98.0); Mean Platelet Volume 6.8 fL (7.4-10.4); Platelet Count 210 thou/uL (130-400); RBC Distribution Width 15.6 % (11.5-14.5); Red Blood Cell (RBC) Count 3.97 mill/uL (4.70-6.10); White Blood Cell (WBC) Count 3.4 thou/uL (4.8-10.8)
[2022-04-24 04:53] LABS: Anion Gap 16 mmol/L (10-20); BUN (Urea Nitrogen) 17 mg/dL (8.4-25.7); Calc. Creatinine Clearance 75 mL/min (70-130); Calcium 8.5 mg/dL (7.8-10.44); Carbon Dioxide 24 mmol/L (23-31); Chloride 101 mmol/L (98-107); Glucose 143 mg/dL (83-110); Potassium 3.7 mmol/L (3.5-5.1); Sodium 137 mmol/L (136-145)
[2022-04-24] MEDS: oxyCODONE/Acetaminophen 5 mg/325 mg Tablet PO PRN (05:04)
[2022-04-24] MEDS: Gabapentin 300 MG CAP PO SCH ×3 (10:06→21:40)
[2022-04-24] MEDS: metFORMIN 500 MG TAB PO SCH ×2 (10:06→12:32)
[2022-04-24] MEDS: Furosemide 40 MG TAB PO SCH (10:06)
[2022-04-24] MEDS: Magnesium Oxide 400 MG TAB PO SCH (10:06)
[2022-04-24] MEDS: Apixaban 5 MG TAB PO SCH ×2 (10:07→21:40)
[2022-04-24] MEDS: Famotidine 20 MG TAB PO SCH ×2 (10:07→21:40)
[2022-04-24] MEDS: Carvedilol 6.25 MG TAB PO SCH ×2 (10:07→18:33)
[2022-04-24] MEDS: diphenhydrAMINE 50 MG/ML VIAL IVP SCH (10:08)
[2022-04-24] MEDS ORDERED: Dextrose 50% Abboject 50 ML SYRINGE SLOW IVP PRN (12:32)
[2022-04-24] MEDS ORDERED: Insulin Regular 300 UNITS/3 ML VIAL SC PRN ×2 (12:32)
[2022-04-24] MEDS ORDERED: Dextrose 5% in Water 1,000 ML IV PRN (12:32)
[2022-04-24] MEDS: Acetaminophen 325 MG TAB PO PRN ×2 (14:27→21:40)
[2022-04-24 17:33] LABS: Magnesium 2.1 mg/dL (1.6-2.6); Potassium 3.3 mmol/L (3.5-5.1)
[2022-04-24] MEDS: Potassium Chloride 20 MEQ TAB PO SCH (18:33)
[2022-04-24] MEDS ORDERED: Potassium Chloride 20 MEQ TAB PO SCH (20:00)
[2022-04-24] MEDS ORDERED: Loratadine 10 MG TAB PO SCH (21:00)
[2022-04-24] MEDS ORDERED: Polyethylene Glycol 3350 17 GM Packet PO PRN (21:40)
[2022-04-24] MEDS: Atorvastatin Calcium 10 MG TAB PO SCH (21:40)
[2022-04-24] MEDS ORDERED: Electrolyte Replacement Protocol 1 EACH FS SCH (21:45)
[2022-04-25] MEDS: cefTRIAXone\\ROCEPHIN 2 GM in Sodium Chloride 0.9% 100 ML IVPB SCH ×2 (01:33→14:17)
[2022-04-25] MEDS: Ampicillin 2 GM in Sodium Chloride 0.9% 100 ML IVPB SCH ×4 (01:33→14:52)
[2022-04-25 05:01] LABS: Anion Gap 15 mmol/L (10-20); BUN (Urea Nitrogen) 19 mg/dL (8.4-25.7); Calc. Creatinine Clearance 74 mL/min (70-130); Calcium 8.5 mg/dL (7.8-10.44); Carbon Dioxide 24 mmol/L (23-31); Chloride 102 mmol/L (98-107); Glucose 171 mg/dL (83-110); Magnesium 2.2 mg/dL (1.6-2.6); Phosphorus 2.1 mg/dL (2.3-4.7); Potassium 3.5 mmol/L (3.5-5.1); Sodium 137 mmol/L (136-145)
[2022-04-25] MEDS ORDERED: Potassium Chloride 20 MEQ TAB PO SCH (08:00)
[2022-04-25] MEDS ORDERED: Saccharomyces boulardii 250 MG CAP PO SCH (09:00)
[2022-04-25] MEDS: Potassium Chloride 20 MEQ TAB PO SCH (10:56)
[2022-04-25] MEDS: Magnesium Oxide 400 MG TAB PO SCH (10:56)
[2022-04-25] MEDS: Gabapentin 300 MG CAP PO SCH ×2 (10:56→14:38)
[2022-04-25] MEDS: Apixaban 5 MG TAB PO SCH (10:56)
[2022-04-25] MEDS: Furosemide 40 MG TAB PO SCH (10:57)
[2022-04-25] MEDS: Famotidine 20 MG TAB PO SCH (10:57)
[2022-04-25] MEDS: Carvedilol 6.25 MG TAB PO SCH (10:59)
[2022-04-25 13:22] VITALS: BP 103/58; TEMP 97.4
[2022-04-25] MEDS: oxyCODONE/Acetaminophen 5 mg/325 mg Tablet PO PRN (14:37)
[2022-04-25] MEDS ORDERED: K-Phos Neutral 250 MG TAB PO SCH (17:00)
[2022-04-26] MEDS ORDERED: Empagliflozin 10 MG TAB PO SCH (09:00)
== END 2022-04-25 16:55 | disposition home or self-care (01) ==
LOC: ERS 14:27 → 2NO 17:46
PROVIDERS: ADMIT Internal Medicine; ATTEND Internal Medicine
DX: R22.0 Localized swelling, mass and lump, head (principal); I11.0 Hypertensive heart disease with heart failure; I50.22 Chronic systolic (congestive) heart failure; E87.6 Hypokalemia; E83.39 Other disorders of phosphorus metabolism; E11.9 Type 2 diabetes mellitus without complications; D64.9 Anemia, unspecified; M46.36 Infection of intervertebral disc (pyogenic), lumbar region; B95.2 Enterococcus as the cause of diseases classified elsewhere; I42.8 Other cardiomyopathies; I48.91 Unspecified atrial fibrillation; J90 Pleural effusion, not elsewhere classified; M25.811 Other specified joint disorders, right shoulder; Z85.038 Personal history of other malignant neoplasm of large intestine; Z86.718 Personal history of other venous thrombosis and embolism; Z87.891 Personal history of nicotine dependence; Z79.01 Long term (current) use of anticoagulants; Z79.2 Long term (current) use of antibiotics; Z79.84 Long term (current) use of oral hypoglycemic drugs; Z79.899 Other long term (current) drug therapy; Z88.8 Allergy status to other drugs, medicaments and biological substances; Z95.810 Presence of automatic (implantable) cardiac defibrillator; Z20.822 Contact with and (suspected) exposure to COVID-19
CPT/HCPCS: 70491; 71045; 80048 ×2; 80053; 82962 ×3; 83735 ×2; 83880; 84100; 84132; 84484; 85025 ×2; 93005; 93971; 94760; 96374; 96375; 99285; U0003; U0005; 36415; 36416; 81003; 81015; 96365; 96366; 96367; 96376; G0378; J0290; J0696; J1200; J1815; J2920; J2930; J3490; Q9966

== ENCOUNTER 2022-05-02 17:14 | Emergency (ER) | payer MEDICARE, OTHER ==
[~2022-05-02 17:14] MED LIST changes: -ISOVUE-370 76%-LOCM 1 ML ONE; +Iopamidol-370 76% 500 ML 1 ML ONE
[2022-05-02] MEDS ORDERED: HYDROcodone/Acetaminophen 5/325 mg Tablet ONE (17:47)
[2022-05-02 19:25] LABS: #Eosinphils 0.4 thou/uL (0.0-0.7); #Lymphocytes 0.6 thou/uL (1.20-3.40); #Monocytes 0.6 thou/uL (0.11-0.59); #Neutrophils 4.9 thou/uL (1.40-6.50); %Basophils 0.8 % (0.0-1.0); %Eosinophils 5.5 % (0.0-10.0); %Lymphocytes 8.8 % (21.0-51.0); %Monocytes 9.7 % (0.0-10.0); %Neutrophils 75.2 % (42.0-75.0); Mean Corpuscular HGB CONC 32.4 g/dL (32.0-36.0); Mean Corpuscular Hemoglobin 31.3 pg (27.0-31.0); Mean Corpuscular Volume 96.6 fL (78.0-98.0); Mean Platelet Volume 7.4 fL (7.4-10.4); Platelet Count 164 thou/uL (130-400); RBC Distribution Width 16.1 % (11.5-14.5); Red Blood Cell (RBC) Count 3.83 mill/uL (4.70-6.10); White Blood Cell (WBC) Count 6.5 thou/uL (4.8-10.8)
[2022-05-02 19:36] LABS: INR-International Normal Ratio 1.9; PTT 50.7 sec (22.9-36.1)
[2022-05-02 19:50] LABS: ALT (SGPT) 24 U/L (8-55); AST (SGOT) 18 U/L (5-34); Albumin 2.9 g/dL (3.4-4.8); Alkaline Phosphatase 108 U/L (40-110); Anion Gap 14 mmol/L (10-20); BUN (Urea Nitrogen) 12 mg/dL (8.4-25.7); Bilirubin, Total 0.4 mg/dL (0.2-1.2); Calc. Creatinine Clearance 0 mL/min (70-130); Calcium 8.3 mg/dL (7.8-10.44); Carbon Dioxide 28 mmol/L (23-31); Chloride 100 mmol/L (98-107); Globulin 2.4 g/dL (2.4-3.5); Glucose 115 mg/dL (83-110); Potassium 3.7 mmol/L (3.5-5.1); Protein, Total 5.3 g/dL (5.8-8.1); Sodium 138 mmol/L (136-145)
[2022-05-03] MEDS ORDERED: HYDROcodone/Acetaminophen 5/325 mg Tablet ONE (00:22)
== END 2022-05-03 00:26 | disposition home or self-care (01) ==
LOC: ERS 17:14
DX: M79.89 Other specified soft tissue disorders (principal); I49.8 Other specified cardiac arrhythmias; I11.0 Hypertensive heart disease with heart failure; I50.9 Heart failure, unspecified; E11.9 Type 2 diabetes mellitus without complications; E78.5 Hyperlipidemia, unspecified; I48.91 Unspecified atrial fibrillation; Z87.891 Personal history of nicotine dependence; Z85.79 Personal history of other malignant neoplasms of lymphoid, hematopoietic and related tissues; Z79.01 Long term (current) use of anticoagulants; Z79.84 Long term (current) use of oral hypoglycemic drugs; Z79.899 Other long term (current) drug therapy; Z20.822 Contact with and (suspected) exposure to COVID-19
CPT/HCPCS: 71275; 80053; 85025; 85610; 85730; 93005; Q9967; U0003; U0005

== ENCOUNTER 2022-05-23 13:20 | Emergency (ER) | payer MEDICARE ==
[2022-05-23] MEDS ORDERED: Iopamidol 370 76% 100 ML VIAL ONE (13:57)
[2022-05-23 14:12] LABS: #Eosinphils 0.3 thou/uL (0.0-0.7); #Lymphocytes 0.6 thou/uL (1.20-3.40); #Monocytes 0.9 thou/uL (0.11-0.59); #Neutrophils 5.1 thou/uL (1.40-6.50); %Basophils 0.7 % (0.0-1.0); %Eosinophils 4.2 % (0.0-10.0); %Lymphocytes 8.9 % (21.0-51.0); %Monocytes 12.7 % (0.0-10.0); %Neutrophils 73.4 % (42.0-75.0); Hemoglobin 12.7 g/dL (14.0-18.0); Mean Corpuscular HGB CONC 31.6 g/dL (32.0-36.0); Mean Corpuscular Hemoglobin 31.2 pg (27.0-31.0); Mean Corpuscular Volume 98.9 fL (78.0-98.0); Mean Platelet Volume 7.8 fL (7.4-10.4); Platelet Count 176 thou/uL (130-400); RBC Distribution Width 15.6 % (11.5-14.5); Red Blood Cell (RBC) Count 4.07 mill/uL (4.70-6.10); White Blood Cell (WBC) Count 6.9 thou/uL (4.8-10.8)
[2022-05-23 14:30] LABS: ALT (SGPT) 7 U/L (8-55); AST (SGOT) 17 U/L (5-34); Albumin 3.1 g/dL (3.4-4.8); Alkaline Phosphatase 86 U/L (40-110); Anion Gap 16 mmol/L (10-20); BUN (Urea Nitrogen) 9 mg/dL (8.4-25.7); Bilirubin, Total 0.6 mg/dL (0.2-1.2); CK (CPK) 79 U/L (30-200); Calc. Creatinine Clearance 0 mL/min (70-130); Calcium 8.3 mg/dL (7.8-10.44); Carbon Dioxide 28 mmol/L (23-31); Chloride 97 mmol/L (98-107); Estimated GFR 93; Globulin 2.5 g/dL (2.4-3.5); Glucose 115 mg/dL (83-110); Potassium 3.1 mmol/L (3.5-5.1); Protein, Total 5.6 g/dL (5.8-8.1); Sodium 138 mmol/L (136-145)
== END 2022-05-23 16:46 | disposition home or self-care (01) ==
LOC: ERS 13:20
DX: I82.211 Chronic embolism and thrombosis of superior vena cava (principal); E11.9 Type 2 diabetes mellitus without complications; I11.0 Hypertensive heart disease with heart failure; I50.9 Heart failure, unspecified; E78.5 Hyperlipidemia, unspecified; Z87.891 Personal history of nicotine dependence; Z79.899 Other long term (current) drug therapy; Z79.84 Long term (current) use of oral hypoglycemic drugs; Z20.822 Contact with and (suspected) exposure to COVID-19
CPT/HCPCS: 36415; 70491; 80053; 82550; 83880; 84484; 85025; Q9967; U0003; U0005

== ENCOUNTER 2022-05-27 12:46 | Inpatient (IN) | payer MEDICARE, OTHER ==
[2022-05-27] MEDS ORDERED: Cefepime 2 GM VIAL ONE (13:38)
[2022-05-27] MEDS ORDERED: EPINEPHrine 1 MG/10 ML Abboject SYRINGE ONE ×3 (13:48→16:15)
[2022-05-27] MEDS ORDERED: Amiodarone 150 MG/3 ML VIAL ONE (13:48)
[2022-05-27] MEDS ORDERED: Rocuronium Bromide 10 MG/ML (10ML VIAL) ONE (13:48)
[2022-05-27 14:03] LABS: ALT (SGPT) 8 U/L (8-55); AST (SGOT) 30 U/L (5-34); Alkaline Phosphatase 78 U/L (40-110); Anion Gap 23 mmol/L (10-20); BUN (Urea Nitrogen) 7 mg/dL (8.4-25.7); Bilirubin, Total 0.6 mg/dL (0.2-1.2); Calc. Creatinine Clearance 0 mL/min (70-130); Calcium 8.6 mg/dL (7.8-10.44); Carbon Dioxide 20 mmol/L (23-31); Chloride 98 mmol/L (98-107); Estimated GFR 91; Globulin 3.3 g/dL (2.4-3.5); Glucose 112 mg/dL (83-110); Potassium 4.9 mmol/L (3.5-5.1); Protein, Total 6.3 g/dL (5.8-8.1); Sodium 136 mmol/L (136-145)
[2022-05-27 14:12] LABS: #Eosinphils 0.3 thou/uL (0.0-0.7); #Lymphocytes 0.8 thou/uL (1.20-3.40); #Monocytes 0.6 thou/uL (0.11-0.59); #Neutrophils 5.3 thou/uL (1.40-6.50); %Basophils 0.5 % (0.0-1.0); %Eosinophils 3.9 % (0.0-10.0); %Lymphocytes 10.9 % (21.0-51.0); %Monocytes 9.1 % (0.0-10.0); %Neutrophils 75.6 % (42.0-75.0); Hemoglobin 13.3 g/dL (14.0-18.0); Mean Corpuscular HGB CONC 31.8 g/dL (32.0-36.0); Mean Corpuscular Hemoglobin 31.2 pg (27.0-31.0); Mean Corpuscular Volume 98.1 fL (78.0-98.0); Mean Platelet Volume 8.2 fL (7.4-10.4); Platelet Count 187 thou/uL (130-400); RBC Distribution Width 15.4 % (11.5-14.5); Red Blood Cell (RBC) Count 4.26 mill/uL (4.70-6.10)
[2022-05-27 14:18] LABS: Bacteria/HPF None Seen HPF (None Seen); Bilirubin Negative (Negative); Blood, Urine Negative (Negative); Clarity Clear (Clear); Glucose, Urine (Dipstick) Greater than 1000 mg/dL (Negative); Ketone, Urine Trace mg/dL (Negative); Leukocyte 250 Leu/uL (Negative); Nitrite Negative (Negative); Protein, Urine (Dipstick) 30 mg/dL (Neg-Trace); RBC/HPF 0-3 HPF (0-3); Specific Gravity, Urine 1.034 (1.002-1.036); Squamous Epithelial 0-3 HPF (0-3); Urobilinogen Normal mg/dL (Less than 2)
[2022-05-27] MEDS ORDERED: Vancomycin 1 GM/200 ML BAG ONE (14:51)
[2022-05-27] MEDS ORDERED: methylPREDNISolone Sod Succ/PF 125 MG/2 ML VIAL ONE (15:33)
[2022-05-27] MEDS ORDERED: diphenhydrAMINE 50 MG/ML VIAL ONE (15:33)
[2022-05-27] MEDS ORDERED: EPINEPHrine 1 MG/ML VIAL ONE (15:43)
[2022-05-27] MEDS ORDERED: Magnesium 2 GM/50 ML BAG (IN WATER) ONE (15:43)
[2022-05-27] MEDS ORDERED: PROPOFOL 20 ML ONE (15:47)
[2022-05-27] MEDS ORDERED: Ketamine 50 MG/ML (10ML VIAL) ONE (15:49)
[2022-05-27] MEDS ORDERED: Norepinephrine 4 MG/4 ML VIAL ONE ×2 (15:51→15:52)
[2022-05-27 16:36] LABS: Actual Bicarbonate (HCO3a) 23.4 mEq/L (22-28); Analyzer IN Cardio ER; Base Excess (BEa) 0.8 mEq/L (-2.0 to +3.0); CO2 Tension 31.9 mmHg (35.0-45.0); Calcium, Ionized (arterial) 1.07 mmol/L (1.12-1.30); Carboxyhemoglobin (COHb) 0.1 gm% (0.0-3.0); Hemoglobin (Hb) 13.7 g/dL (14.0-18.0); Potassium - ABG Lab 2.58 mmol/L (3.70-5.30); pH, Arterial 7.48 (7.35-7.45)
[2022-05-27 16:47] LABS: O2 Tension (PaO2), arterial 509.7 mmHg (> 70.0)
[2022-05-27 16:48] LABS: ALV-art Gradient 163.425 mmHg (0-20); Puncture Site LFA
[2022-05-27] MEDS ORDERED: Phenylephrine 40 MG in Sodium Chloride 0.9% 250 ML 250 ML IVPB PRN (17:28)
[2022-05-27 17:30] LABS: Lactic Acid 4.6 mmol/L (0.5-2.2)
[2022-05-27] MEDS ORDERED: Hydrocortisone Sod Succ/PF 100 mg/2 ml Vial IVP SCH (18:30)
[2022-05-27] MEDS ORDERED: Ventilator Sedation Protocol FS PRN (18:45)
[2022-05-27] MEDS ORDERED: DISCONTINUE PREVIOUS NARCOTIC PAIN MEDICATIONS AND BENZODIAZEPINES FS SCH (18:45)
[2022-05-27] MEDS ORDERED: Fentanyl BOLUS 250 ML IVPB PRN (18:45)
[2022-05-27] MEDS ORDERED: Propofol 1,000 MG/100 ML VIAL IV PRN (18:45)
[2022-05-27] MEDS ORDERED: Propofol BOLUS 1,000 MG/100 ML VIAL IV PRN (18:45)
[2022-05-27] MEDS ORDERED: HumaLOG 300 UNITS/3 ML VIAL SC PRN (19:13)
[2022-05-27] MEDS ORDERED: Dextrose 5% in Water 1,000 ML IV PRN (19:13)
[2022-05-27] MEDS ORDERED: Dextrose 50% Abboject 50 ML SYRINGE SLOW IVP PRN (19:13)
[2022-05-27] MEDS: Sodium Chloride 0.9% 1,000 ML IV SCH (20:00)
[2022-05-27] MEDS: Ampicillin 2 GM VIAL IVPB SCH (20:46)
[2022-05-27] MEDS ORDERED: Apixaban 5 MG TAB PO SCH (21:00)
[2022-05-27] MEDS: Fentanyl CADD 100 ML IV SCH (21:16)
[2022-05-27 23:30] LABS: Lactic Acid 6.3 mmol/L (0.5-2.2)
[2022-05-28] MEDS: NOREPINEPHRINE 8 MG/250 ML-D5W 250 ML IVPB PRN ×2 (00:19→13:28)
[2022-05-28] MEDS: Ampicillin 2 GM VIAL IVPB SCH (00:20)
[2022-05-28] MEDS: Sodium Chloride 0.9% 1,000 ML IV SCH ×3 (00:26→21:37)
[2022-05-28] MEDS ORDERED: cefTRIAXone\\ROCEPHIN 2 GM VIAL IVPB SCH (01:00)
[2022-05-28] MEDS ORDERED: Hydrocortisone Sod Succ/PF 100 mg/2 ml Vial IVP SCH (06:00)
[2022-05-28] MEDS ORDERED: Furosemide 20 MG/2 ML VIAL SLOW IVP SCH (06:00)
[2022-05-28] MEDS: cefTRIAXone\\ROCEPHIN 2 GM in Sodium Chloride 0.9% 100 ML IVPB SCH ×2 (06:24→11:55)
[2022-05-28] MEDS: Ampicillin 2 GM in Sodium Chloride 0.9% 100 ML IVPB SCH ×5 (06:27→21:36)
[2022-05-28 06:54] LABS: ALT (SGPT) Less than 7 U/L (8-55); AST (SGOT) 14 U/L (5-34); Albumin 2.2 g/dL (3.4-4.8); Alkaline Phosphatase 52 U/L (40-110); Anion Gap 20 mmol/L (10-20); BUN (Urea Nitrogen) 14 mg/dL (8.4-25.7); Bilirubin, Total 0.5 mg/dL (0.2-1.2); Calc. Creatinine Clearance 61 mL/min (70-130); Calcium 7.6 mg/dL (7.8-10.44); Carbon Dioxide 17 mmol/L (23-31); Chloride 104 mmol/L (98-107); Estimated GFR 79; Glucose 159 mg/dL (83-110); Potassium 3.2 mmol/L (3.5-5.1); Protein, Total 4.2 g/dL (5.8-8.1); Sodium 138 mmol/L (136-145)
[2022-05-28 07:29] LABS: Actual Bicarbonate (HCO3a) 21.7 mEq/L (22-28); Base Excess (BEa) -1.1 mEq/L (-2.0 to +3.0); CO2 Tension 30.9 mmHg (35.0-45.0); Calcium, Ionized (arterial) 1.06 mmol/L (1.12-1.30); Carboxyhemoglobin (COHb) 0.2 gm% (0.0-3.0); Hemoglobin (Hb) 13.3 g/dL (14.0-18.0); O2 Tension (PaO2), arterial 147.2 mmHg (> 70.0); Potassium - ABG Lab 3.32 mmol/L (3.70-5.30); pH, Arterial 7.46 (7.35-7.45)
[2022-05-28 07:30] LABS: ALV-art Gradient 99.375 mmHg (0-20); Puncture Site LRA
[2022-05-28] MEDS ORDERED: Electrolyte Replacement Protocol 1 EACH FS SCH (07:45)
[2022-05-28] MEDS ORDERED: Potassium Chloride 40 MEQ in Premix Bag 1 BAG IVPB SCH (07:45)
[2022-05-28] MEDS ORDERED: Carvedilol 6.25 MG TAB PO SCH (08:00)
[2022-05-28] MEDS ORDERED: Electrolyte Replacement Protocol FS PRN (08:00)
[2022-05-28] MEDS: Pantoprazole 40 MG VIAL IVP SCH (08:43)
[2022-05-28 08:47] LABS: Lactic Acid 1.7 mmol/L (0.5-2.2)
[2022-05-28] MEDS: Midazolam HCl 2 mg/2 ml Vial SLOW IVP PRN (09:08)
[2022-05-28] MEDS: Midazolam In 0.9 % NaCl/PF 100 ML IVPB SCH (10:02)
[2022-05-28] MEDS ORDERED: Magnesium 2 GM/50 ML(in water) 2 GM in Premix Bag 1 BAG IVPB SCH (11:00)
[2022-05-28] MEDS ORDERED: Fentanyl CADD 100 ML ONE (11:05)
[2022-05-28] MEDS: Fentanyl CADD 100 ML IV SCH (11:56)
[2022-05-28 12:43] LABS: Hemoglobin 12.3 g/dL (14.0-18.0); Mean Corpuscular HGB CONC 30.8 g/dL (32.0-36.0); Mean Corpuscular Hemoglobin 30.6 pg (27.0-31.0); Mean Corpuscular Volume 99.4 fL (78.0-98.0); Mean Platelet Volume 8.3 fL (7.4-10.4); Platelet Count 211 thou/uL (130-400); RBC Distribution Width 15.8 % (11.5-14.5); Red Blood Cell (RBC) Count 4.02 mill/uL (4.70-6.10); White Blood Cell (WBC) Count 20.9 thou/uL (4.8-10.8)
[2022-05-28 12:59] LABS: Band 19 % (5-11); Lymphocytes 7 % (21-51); MDiff Complete? YES; Monocytes 3 % (0-10); Neutrophil 71 % (42-75); RBC Morphology Normal
[2022-05-28 14:27] LABS: Potassium 3.8 mmol/L (3.5-5.1)
[2022-05-28] MEDS: Gabapentin 300 MG CAP PO SCH ×2 (15:12→21:37)
[2022-05-28] MEDS ORDERED: Apixaban 5 MG TAB PO SCH (21:00)
[2022-05-28] MEDS: Atorvastatin Calcium 10 MG TAB PO SCH (21:39)
[2022-05-29] MEDS: Ampicillin 2 GM in Sodium Chloride 0.9% 100 ML IVPB SCH ×4 (00:38→12:47)
[2022-05-29] MEDS: cefTRIAXone\\ROCEPHIN 2 GM in Sodium Chloride 0.9% 100 ML IVPB SCH ×2 (00:39→12:18)
[2022-05-29 05:14] LABS: #Lymphocytes 0.7 thou/uL (1.20-3.40); #Neutrophils 12.2 thou/uL (1.40-6.50); %Eosinophils 0.1 % (0.0-10.0); %Lymphocytes 4.7 % (21.0-51.0); %Monocytes 7.2 % (0.0-10.0); Hemoglobin 11.7 g/dL (14.0-18.0); Mean Corpuscular HGB CONC 32.5 g/dL (32.0-36.0); Mean Corpuscular Hemoglobin 31.5 pg (27.0-31.0); Mean Corpuscular Volume 96.9 fL (78.0-98.0); Mean Platelet Volume 7.9 fL (7.4-10.4); Platelet Count 182 thou/uL (130-400); White Blood Cell (WBC) Count 13.8 thou/uL (4.8-10.8)
[2022-05-29 05:38] LABS: ALT (SGPT) Less than 7 U/L (8-55); AST (SGOT) 14 U/L (5-34); Albumin 2.3 g/dL (3.4-4.8); Alkaline Phosphatase 48 U/L (40-110); Anion Gap 20 mmol/L (10-20); BUN (Urea Nitrogen) 22 mg/dL (8.4-25.7); Bilirubin, Total 0.3 mg/dL (0.2-1.2); Calc. Creatinine Clearance 61 mL/min (70-130); Calcium 7.8 mg/dL (7.8-10.44); Carbon Dioxide 17 mmol/L (23-31); Chloride 107 mmol/L (98-107); Estimated GFR 77; Globulin 2.2 g/dL (2.4-3.5); Glucose 148 mg/dL (83-110); Magnesium 2.5 mg/dL (1.6-2.6); Potassium 3.5 mmol/L (3.5-5.1); Protein, Total 4.5 g/dL (5.8-8.1); Sodium 140 mmol/L (136-145)
[2022-05-29] MEDS: Sodium Chloride 0.9% 1,000 ML IV SCH ×2 (05:42→12:03)
[2022-05-29 07:43] LABS: Actual Bicarbonate (HCO3a) 17.5 mEq/L (22-28); Base Excess (BEa) -4.5 mEq/L (-2.0 to +3.0); Calcium, Ionized (arterial) 1.08 mmol/L (1.12-1.30); Carboxyhemoglobin (COHb) 0.2 gm% (0.0-3.0); Hemoglobin (Hb) 11.9 g/dL (14.0-18.0); O2 Tension (PaO2), arterial 152.6 mmHg (> 70.0); Potassium - ABG Lab 3.37 mmol/L (3.70-5.30); pH, Arterial 7.48 (7.35-7.45)
[2022-05-29 07:47] LABS: CO2 Tension 24.2 mmHg (35.0-45.0)
[2022-05-29 07:48] LABS: Puncture Site LRA
[2022-05-29] MEDS: Gabapentin 300 MG CAP PO SCH ×2 (08:38→20:25)
[2022-05-29] MEDS: Pantoprazole 40 MG VIAL IVP SCH (08:38)
[2022-05-29] MEDS: Potassium Chloride 20 MEQ in Premix Bag 1 BAG IVPB SCH ×2 (08:38→11:38)
[2022-05-29] MEDS ORDERED: Hydrocortisone Sod Succ/PF 100 mg/2 ml Vial IVP SCH (09:00)
[2022-05-29] MEDS ORDERED: Albumin 25% 25 GM/100 ML BOT IVPB SCH ×2 (11:00→18:00)
[2022-05-29] MEDS: Fentanyl CADD 100 ML IV SCH (12:38)
[2022-05-29] MEDS: Enoxaparin Sodium 80 MG/0.8 ML SYRINGE SC SCH (20:25)
[2022-05-29] MEDS: Atorvastatin Calcium 10 MG TAB PO SCH (20:25)
[2022-05-29] MEDS: NOREPINEPHRINE 8 MG/250 ML-D5W 250 ML IVPB PRN (21:42)
[2022-05-30] MEDS: Sodium Chloride 0.9% 1,000 ML IV SCH ×4 (00:02→21:45)
[2022-05-30 04:23] LABS: #Lymphocytes 0.4 thou/uL (1.20-3.40); #Monocytes 0.5 thou/uL (0.11-0.59); #Neutrophils 6.8 thou/uL (1.40-6.50); %Eosinophils 0.3 % (0.0-10.0); %Lymphocytes 5.2 % (21.0-51.0); %Monocytes 6.1 % (0.0-10.0); %Neutrophils 88.4 % (42.0-75.0); Hemoglobin 12.2 g/dL (14.0-18.0); Mean Corpuscular HGB CONC 32.1 g/dL (32.0-36.0); Mean Corpuscular Hemoglobin 31.8 pg (27.0-31.0); Platelet Count 119 thou/uL (130-400); RBC Distribution Width 15.8 % (11.5-14.5); Red Blood Cell (RBC) Count 3.83 mill/uL (4.70-6.10); White Blood Cell (WBC) Count 7.7 thou/uL (4.8-10.8)
[2022-05-30] MEDS: Midazolam HCl 2 mg/2 ml Vial SLOW IVP PRN (04:43)
[2022-05-30] MEDS: Morphine 4 MG/ML VIAL SLOW IVP PRN ×2 (06:10→06:37)
[2022-05-30 06:55] LABS: ALT (SGPT) Less than 7 U/L (8-55); AST (SGOT) 17 U/L (5-34); Albumin 2.7 g/dL (3.4-4.8); Alkaline Phosphatase 45 U/L (40-110); Anion Gap 18 mmol/L (10-20); BUN (Urea Nitrogen) 23 mg/dL (8.4-25.7); Bilirubin, Total 0.3 mg/dL (0.2-1.2); Calc. Creatinine Clearance 79 mL/min (70-130); Calcium 8.2 mg/dL (7.8-10.44); Carbon Dioxide 18 mmol/L (23-31); Chloride 109 mmol/L (98-107); Estimated GFR 90; Globulin 2.1 g/dL (2.4-3.5); Glucose 111 mg/dL (83-110); Potassium 3.6 mmol/L (3.5-5.1); Protein, Total 4.8 g/dL (5.8-8.1); Sodium 141 mmol/L (136-145)
[2022-05-30 07:01] LABS: Actual Bicarbonate (HCO3a) 21.4 mEq/L (22-28); Base Excess (BEa) -3.1 mEq/L (-2.0 to +3.0); CO2 Tension 36.4 mmHg (35.0-45.0); Calcium, Ionized (arterial) 1.13 mmol/L (1.12-1.30); Carboxyhemoglobin (COHb) 0.3 gm% (0.0-3.0); Hemoglobin (Hb) 11.6 g/dL (14.0-18.0); O2 Tension (PaO2), arterial 83.2 mmHg (> 70.0); Potassium - ABG Lab 3.69 mmol/L (3.70-5.30); pH, Arterial 7.39 (7.35-7.45)
[2022-05-30 07:02] LABS: Puncture Site RRA
[2022-05-30] MEDS: Gabapentin 300 MG CAP PO SCH ×4 (09:49→21:12)
[2022-05-30] MEDS: Midazolam In 0.9 % NaCl/PF 100 ML IVPB SCH (09:49)
[2022-05-30] MEDS: Pantoprazole 40 MG VIAL IVP SCH (09:56)
[2022-05-30] MEDS: Enoxaparin Sodium 80 MG/0.8 ML SYRINGE SC SCH ×2 (09:56→21:11)
[2022-05-30] MEDS ORDERED: Fentanyl CADD 100 ML ONE (10:14)
[2022-05-30] MEDS: Fentanyl CADD 100 ML IV SCH (10:34)
[2022-05-30] MEDS: Amiodarone 450 MG in Dextrose 5% in Water 250 ML IVPB SCH ×2 (10:45→18:35)
[2022-05-30] MEDS ORDERED: Phenylephrine 40 MG/NS 250 ML 40 MG in Premix Bag 1 BAG IVPB SCH (15:30)
[2022-05-30] MEDS: Atorvastatin Calcium 10 MG TAB PO SCH (21:13)
[2022-05-30] MEDS ORDERED: Magnesium 2 GM/50 ML(in water) 2 GM in Premix Bag 1 BAG IVPB SCH (23:15)
[2022-05-31] MEDS: Midazolam HCl 2 mg/2 ml Vial SLOW IVP PRN (04:12)
[2022-05-31 04:47] LABS: #Lymphocytes 0.3 thou/uL (1.20-3.40); #Monocytes 0.5 thou/uL (0.11-0.59); #Neutrophils 7.2 thou/uL (1.40-6.50); %Basophils 0.2 % (0.0-1.0); %Eosinophils 0.1 % (0.0-10.0); %Lymphocytes 4.1 % (21.0-51.0); %Monocytes 5.8 % (0.0-10.0); %Neutrophils 89.8 % (42.0-75.0); Hemoglobin 11.3 g/dL (14.0-18.0); Mean Corpuscular HGB CONC 32.3 g/dL (32.0-36.0); Mean Corpuscular Volume 99.2 fL (78.0-98.0); Mean Platelet Volume 8.8 fL (7.4-10.4); Platelet Count 139 thou/uL (130-400); RBC Distribution Width 15.5 % (11.5-14.5); Red Blood Cell (RBC) Count 3.53 mill/uL (4.70-6.10)
[2022-05-31 05:08] LABS: ALT (SGPT) 7 U/L (8-55); AST (SGOT) 18 U/L (5-34); Albumin 2.5 g/dL (3.4-4.8); Alkaline Phosphatase 52 U/L (40-110); Anion Gap 14 mmol/L (10-20); BUN (Urea Nitrogen) 21 mg/dL (8.4-25.7); Bilirubin, Total 0.5 mg/dL (0.2-1.2); Calc. Creatinine Clearance 89 mL/min (70-130); Calcium 8.1 mg/dL (7.8-10.44); Carbon Dioxide 22 mmol/L (23-31); Chloride 108 mmol/L (98-107); Estimated GFR 94; Globulin 2.3 g/dL (2.4-3.5); Glucose 107 mg/dL (83-110); Potassium 3.5 mmol/L (3.5-5.1); Protein, Total 4.8 g/dL (5.8-8.1); Sodium 140 mmol/L (136-145)
[2022-05-31] MEDS: Fentanyl CADD 100 ML IV SCH (05:36)
[2022-05-31] MEDS: Morphine 4 MG/ML VIAL SLOW IVP PRN (05:44)
[2022-05-31 06:37] LABS: Actual Bicarbonate (HCO3a) 20.5 mEq/L (22-28); CO2 Tension 35.5 mmHg (35.0-45.0); Calcium, Ionized (arterial) 1.22 mmol/L (1.12-1.30); O2 Tension (PaO2), arterial 81.2 mmHg (> 70.0); Potassium - ABG Lab 3.51 mmol/L (3.70-5.30); pH, Arterial 7.38 (7.35-7.45)
[2022-05-31 06:42] LABS: ALV-art Gradient 159.625 mmHg (0-20); Puncture Site RRA
[2022-05-31] MEDS: Sodium Chloride 0.9% 1,000 ML IV SCH ×2 (07:00→10:37)
[2022-05-31] MEDS: Amiodarone 450 MG in Dextrose 5% in Water 250 ML IVPB SCH (09:57)
[2022-05-31] MEDS: Enoxaparin Sodium 80 MG/0.8 ML SYRINGE SC SCH ×2 (09:58→21:13)
[2022-05-31] MEDS: Pantoprazole 40 MG VIAL IVP SCH (09:58)
[2022-05-31] MEDS: Gabapentin 300 MG CAP PO SCH ×3 (09:58→21:13)
[2022-05-31] MEDS: Potassium Chloride 20 MEQ in Premix Bag 1 BAG IVPB SCH ×2 (10:02→11:00)
[2022-05-31] MEDS ORDERED: Furosemide 20 MG/2 ML VIAL SLOW IVP SCH (12:15)
[2022-05-31] MEDS: Atorvastatin Calcium 10 MG TAB PO SCH (21:13)
[2022-06-01] MEDS ORDERED: Fentanyl CADD 100 ML ONE (00:48)
[2022-06-01] MEDS: Fentanyl CADD 100 ML IV SCH (00:51)
[2022-06-01] MEDS: Amiodarone 450 MG in Dextrose 5% in Water 250 ML IVPB SCH ×2 (00:57→20:00)
[2022-06-01] MEDS: Morphine 4 MG/ML VIAL SLOW IVP PRN (01:25)
[2022-06-01 04:45] LABS: #Lymphocytes 0.3 thou/uL (1.20-3.40); #Monocytes 0.5 thou/uL (0.11-0.59); #Neutrophils 6.8 thou/uL (1.40-6.50); %Basophils 0.2 % (0.0-1.0); %Eosinophils 0.3 % (0.0-10.0); %Lymphocytes 4.1 % (21.0-51.0); %Monocytes 6.1 % (0.0-10.0); %Neutrophils 89.2 % (42.0-75.0); Hemoglobin 10.5 g/dL (14.0-18.0); Mean Corpuscular HGB CONC 31.9 g/dL (32.0-36.0); Mean Corpuscular Hemoglobin 31.9 pg (27.0-31.0); Mean Platelet Volume 8.7 fL (7.4-10.4); Platelet Count 126 thou/uL (130-400); RBC Distribution Width 15.6 % (11.5-14.5); White Blood Cell (WBC) Count 7.6 thou/uL (4.8-10.8)
[2022-06-01 05:08] LABS: Anion Gap 13 mmol/L (10-20); BUN (Urea Nitrogen) 23 mg/dL (8.4-25.7); Calc. Creatinine Clearance 98 mL/min (70-130); Carbon Dioxide 22 mmol/L (23-31); Chloride 108 mmol/L (98-107); Potassium 3.8 mmol/L (3.5-5.1); Sodium 139 mmol/L (136-145)
[2022-06-01 05:09] LABS: ALT (SGPT) 11 U/L (8-55); AST (SGOT) 25 U/L (5-34); Albumin 2.3 g/dL (3.4-4.8); Alkaline Phosphatase 67 U/L (40-110); Bilirubin, Total 0.4 mg/dL (0.2-1.2); Calcium 8.2 mg/dL (7.8-10.44); Estimated GFR 95; Globulin 2.4 g/dL (2.4-3.5); Glucose 146 mg/dL (83-110); Protein, Total 4.7 g/dL (5.8-8.1)
[2022-06-01 06:36] LABS: Carboxyhemoglobin (COHb) 0.3 gm% (0.0-3.0); Hemoglobin (Hb) 11.7 g/dL (14.0-18.0); Potassium - ABG Lab 3.77 mmol/L (3.70-5.30); pH, Arterial 7.37 (7.35-7.45)
[2022-06-01 06:37] LABS: Puncture Site RRA
[2022-06-01] MEDS ORDERED: Sodium Bicarbonate Tab 325 MG TAB PER TUBE PRN (07:41)
[2022-06-01] MEDS ORDERED: Pancrelipase DR 12,000 1 CAP PER TUBE PRN (07:41)
[2022-06-01] MEDS: Sodium Chloride 0.9% 1,000 ML IV SCH (08:02)
[2022-06-01] MEDS: Gabapentin 300 MG CAP PO SCH ×3 (08:24→21:46)
[2022-06-01] MEDS: Pantoprazole 40 MG VIAL IVP SCH (08:24)
[2022-06-01] MEDS: Enoxaparin Sodium 80 MG/0.8 ML SYRINGE SC SCH ×2 (08:27→21:46)
[2022-06-01] MEDS ORDERED: Furosemide 40 MG/4 ML VIAL SLOW IVP SCH (12:15)
[2022-06-01] MEDS: Atorvastatin Calcium 10 MG TAB PO SCH (21:46)
[2022-06-01] MEDS: HumaLOG 300 UNITS/3 ML VIAL SC PRN (23:52)
[2022-06-02 05:24] LABS: #Lymphocytes 0.5 thou/uL (1.20-3.40); #Monocytes 0.4 thou/uL (0.11-0.59); #Neutrophils 4.1 thou/uL (1.40-6.50); %Eosinophils 0.5 % (0.0-10.0); %Monocytes 8.3 % (0.0-10.0); %Neutrophils 82.2 % (42.0-75.0); Hemoglobin 10.8 g/dL (14.0-18.0); Mean Corpuscular Hemoglobin 31.7 pg (27.0-31.0); Mean Platelet Volume 8.9 fL (7.4-10.4); Platelet Count 137 thou/uL (130-400); RBC Distribution Width 15.6 % (11.5-14.5); Red Blood Cell (RBC) Count 3.39 mill/uL (4.70-6.10)
[2022-06-02 05:59] LABS: Albumin 2.2 g/dL (3.4-4.8); Chloride 107 mmol/L (98-107); Potassium 3.5 mmol/L (3.5-5.1); Sodium 139 mmol/L (136-145)
[2022-06-02 06:00] LABS: Anion Gap 12 mmol/L (10-20); BUN (Urea Nitrogen) 24 mg/dL (8.4-25.7); Bilirubin, Total 0.6 mg/dL (0.2-1.2); Calc. Creatinine Clearance 104 mL/min (70-130); Calcium 8.2 mg/dL (7.8-10.44); Carbon Dioxide 24 mmol/L (23-31); Estimated GFR 97; Globulin 2.6 g/dL (2.4-3.5); Glucose 167 mg/dL (83-110); Protein, Total 4.8 g/dL (5.8-8.1)
[2022-06-02 06:01] LABS: ALT (SGPT) 25 U/L (8-55); AST (SGOT) 70 U/L (5-34); Alkaline Phosphatase 81 U/L (40-110)
[2022-06-02] MEDS: HumaLOG 300 UNITS/3 ML VIAL SC PRN ×3 (06:30→22:10)
[2022-06-02 08:15] VITALS: BMI 28.8
[2022-06-02] MEDS: Potassium Chloride 20 MEQ in Premix Bag 1 BAG IVPB SCH ×2 (09:21→13:50)
[2022-06-02] MEDS: Gabapentin 300 MG CAP PO SCH ×3 (09:33→22:00)
[2022-06-02] MEDS: Pantoprazole 40 MG VIAL IVP SCH (09:33)
[2022-06-02] MEDS: Fentanyl CADD 100 ML IV SCH (14:09)
[2022-06-02] MEDS ORDERED: Furosemide 100 MG/10 ML VIAL SLOW IVP SCH ×2 (14:30→14:45)
[2022-06-02] MEDS: Sodium Chloride 0.9% 1,000 ML IV SCH (14:31)
[2022-06-02] MEDS: Furosemide 40 MG/4 ML VIAL SLOW IVP SCH (15:30)
[2022-06-02] MEDS ORDERED: Scopolamine 1.5 mg/72 hour Patch TOP SCH (16:00)
[2022-06-02] MEDS ORDERED: Morphine 4 MG/ML VIAL SLOW IVP PRN (16:09)
[2022-06-02] MEDS ORDERED: Acetaminophen 650 MG/20.3 ML UDCUP PER TUBE PRN (16:13)
[2022-06-02] MEDS ORDERED: Morphine 4 MG/ML VIAL SLOW IVP SCH (16:15)
[2022-06-02] MEDS: Lorazepam (BATCHED) 2 MG/ML SYR SLOW IVP SCH (21:47)
[2022-06-02] MEDS: Atorvastatin Calcium 10 MG TAB PO SCH (22:00)
[2022-06-03] MEDS: HumaLOG 300 UNITS/3 ML VIAL SC PRN (03:56)
[2022-06-03 05:03] LABS: ALT (SGPT) 82 U/L (8-55); AST (SGOT) 209 U/L (5-34); Albumin 2.2 g/dL (3.4-4.8); Alkaline Phosphatase 120 U/L (40-110); Anion Gap 12 mmol/L (10-20); BUN (Urea Nitrogen) 23 mg/dL (8.4-25.7); Bilirubin, Total 0.5 mg/dL (0.2-1.2); Calc. Creatinine Clearance 116 mL/min (70-130); Calcium 8.1 mg/dL (7.8-10.44); Carbon Dioxide 26 mmol/L (23-31); Chloride 106 mmol/L (98-107); Estimated GFR 97; Globulin 2.7 g/dL (2.4-3.5); Glucose 181 mg/dL (83-110); Potassium 3.7 mmol/L (3.5-5.1); Protein, Total 4.9 g/dL (5.8-8.1); Sodium 140 mmol/L (136-145)
[2022-06-03 05:30] LABS: Band 17 % (5-11); Hemoglobin 10.9 g/dL (14.0-18.0); Hypochromia SLIGHT = 6-15 cells (100X) (0-5/hpf); Lymphocytes 4 % (21-51); MDiff Complete? YES; Mean Corpuscular Hemoglobin 31.7 pg (27.0-31.0); Mean Corpuscular Volume 98.9 fL (78.0-98.0); Mean Platelet Volume 8.4 fL (7.4-10.4); Monocytes 10 % (0-10); Neutrophil 69 % (42-75); Platelet Count 143 thou/uL (130-400); Platelet Morphology Comment Appears Adequate; RBC Distribution Width 15.7 % (11.5-14.5); Red Blood Cell (RBC) Count 3.44 mill/uL (4.70-6.10); White Blood Cell (WBC) Count 4.9 thou/uL (4.8-10.8)
[2022-06-03] MEDS: Sodium Chloride 0.9% 1,000 ML IV SCH (05:34)
[2022-06-03] MEDS: Furosemide 40 MG/4 ML VIAL SLOW IVP SCH (06:25)
[2022-06-03 07:08] VITALS: BP 147/82
[2022-06-03] MEDS ORDERED: Scopolamine 1.5 mg/72 hour Patch TOP SCH (08:26)
[2022-06-03] MEDS ORDERED: Morphine 4 MG/ML VIAL SLOW IVP PRN (08:27)
[2022-06-03] MEDS ORDERED: Lorazepam (BATCHED) 2 MG/ML SYR SLOW IVP PRN (08:28)
[2022-06-03] MEDS: Gabapentin 300 MG CAP PO SCH (08:48)
[2022-06-03] MEDS: Pantoprazole 40 MG VIAL IVP SCH (08:49)
[2022-06-03] MEDS: Midazolam HCl 2 mg/2 ml Vial SLOW IVP PRN (09:39)
[2022-06-03] MEDS: Lorazepam (BATCHED) 2 MG/ML SYR SLOW IVP SCH (10:48)
[2022-06-03 10:53] VITALS: TEMP 98.5
== END 2022-06-03 10:56 | disposition hospice, inpatient (51) | DRG 207 ==
LOC: ERS 12:46 → CCU 17:28
PROVIDERS: ADMIT Internal Medicine; ATTEND Internal Medicine
PROC: 06HY33Z Insertion of Infusion Device into Lower Vein, Percutaneous Approach (ICD-10-PCS; principal; 2022-05-27)
PROC: 5A1955Z Respiratory Ventilation, Greater than 96 Consecutive Hours (ICD-10-PCS; 2022-05-27)
PROC: 0BH18EZ Insertion of Endotracheal Airway into Trachea, Via Natural or Artificial Opening Endoscopic (ICD-10-PCS; 2022-05-27)
PROC: 3E033XZ Introduction of Vasopressor into Peripheral Vein, Percutaneous Approach (ICD-10-PCS; 2022-05-27)
DX: J96.01 Acute respiratory failure with hypoxia (principal); I50.23 Acute on chronic systolic (congestive) heart failure; R57.8 Other shock; I82.220 Acute embolism and thrombosis of inferior vena cava; I87.1 Compression of vein; J90 Pleural effusion, not elsewhere classified; Z51.5 Encounter for palliative care; Z66 Do not resuscitate; I47.2 Ventricular tachycardia; I42.0 Dilated cardiomyopathy; E87.2 Acidosis; I48.92 Unspecified atrial flutter; M46.26 Osteomyelitis of vertebra, lumbar region; R78.81 Bacteremia; E11.9 Type 2 diabetes mellitus without complications; E78.5 Hyperlipidemia, unspecified; I44.30 Unspecified atrioventricular block; M46.46 Discitis, unspecified, lumbar region; Z20.822 Contact with and (suspected) exposure to COVID-19; E66.9 Obesity, unspecified; I27.20 Pulmonary hypertension, unspecified; I48.91 Unspecified atrial fibrillation; Z95.810 Presence of automatic (implantable) cardiac defibrillator; Z78.1 Physical restraint status; Z85.038 Personal history of other malignant neoplasm of large intestine; Z68.28 Body mass index [BMI] 28.0-28.9, adult; Z88.8 Allergy status to other drugs, medicaments and biological substances; Z79.84 Long term (current) use of oral hypoglycemic drugs; Z79.51 Long term (current) use of inhaled steroids; Z79.899 Other long term (current) drug therapy; Z90.49 Acquired absence of other specified parts of digestive tract; Z98.890 Other specified postprocedural states; Z87.891 Personal history of nicotine dependence
CPT/HCPCS: 31500; 36415; 36416; 36556; 36600; 51702; 71045; 80053; 81003; 81015; 82533; 82805; 83605; 83735; 85025; 87040; 87086; 93005; 93010; 94002; 94003; 96365; 96366; 96367; 96372; 96375; 96376; C9113; J0171; J0282; J0290; J0692; J0696; J1200; J1650; J1720; J1815; J1940; J2060; J2250; J2270; J2704; J2930; J3010; J3370; J3475; J3480; J3490; J7050; J7070; P9047; U0003; U0005

== ENCOUNTER 2022-06-03 11:25 | Inpatient (IN) | payer OTHER ==
[2022-06-03] MEDS ORDERED: Lorazepam (BATCHED) 2 MG/ML SYR SLOW IVP PRN (11:47)
[2022-06-03] MEDS ORDERED: Lorazepam (BATCHED) 2 MG/ML SYR SLOW IVP SCH ×2 (12:00→13:00)
[2022-06-03] MEDS ORDERED: Morphine 10 MG/ML VIAL SLOW IVP SCH (12:00)
[2022-06-03] MEDS ORDERED: Morphine 4 MG/ML VIAL SLOW IVP SCH (12:00)
[2022-06-03] MEDS: Morphine 2 MG/ML VIAL SLOW IVP PRN ×4 (12:41→13:42)
== END 2022-06-03 14:32 | disposition expired | DRG 951 ==
LOC: CCU 11:25
PROVIDERS: ADMIT Family Medicine; ATTEND Family Medicine
DX: Z51.5 Encounter for palliative care (principal); J96.01 Acute respiratory failure with hypoxia; I50.23 Acute on chronic systolic (congestive) heart failure; I87.1 Compression of vein; R57.0 Cardiogenic shock; E11.9 Type 2 diabetes mellitus without complications; E78.5 Hyperlipidemia, unspecified; I48.91 Unspecified atrial fibrillation; I11.0 Hypertensive heart disease with heart failure; Z95.810 Presence of automatic (implantable) cardiac defibrillator; Z85.038 Personal history of other malignant neoplasm of large intestine; Z90.49 Acquired absence of other specified parts of digestive tract; Z92.21 Personal history of antineoplastic chemotherapy; Z88.8 Allergy status to other drugs, medicaments and biological substances; Z79.84 Long term (current) use of oral hypoglycemic drugs; Z79.899 Other long term (current) drug therapy; Z87.891 Personal history of nicotine dependence
CPT/HCPCS: J2060; J2270